=== PATIENT | female | born 1965 | race Caucasian/White ===

== ENCOUNTER 2020-04-18 11:55 | Outpatient (REF) | payer BC, SELFPAY ==
[2020-04-18 14:44] LABS: Free T4 (Free Thyroxine) 1.02 ng/dL (0.71-1.85); Thyroid Stimulating Hormone 1.48 uIU/mL (0.32-4.0); Vitamin D 25-OH Total 46.2 ng/mL (>30)
[2020-04-19 21:47] LABS: Thyroid Peroxidase Antibodies 83 IU/mL (<9)
== END 2020-04-18 11:56 | disposition home or self-care (01) ==
LOC: HO.HMGCLDS 11:55
PROVIDERS: PCP Internal Medicine; Visit Provider Internal Medicine
DX: N95.9 Unspecified menopausal and perimenopausal disorder (principal); E03.9 Hypothyroidism, unspecified; M25.50 Pain in unspecified joint; E06.3 Autoimmune thyroiditis; E04.1 Nontoxic single thyroid nodule; Z23 Encounter for immunization
CPT/HCPCS: 36415; 82306; 84439; 84443; 86376

== ENCOUNTER 2020-05-19 16:38 | Outpatient (REF) | payer BC, SELFPAY | END 2020-05-19 16:39 | disposition home or self-care (01) | LOC: HO.LAB 16:38 | PROVIDERS: Visit Provider Internal Medicine | DX: Z20.828 Contact with and (suspected) exposure to other viral communicable diseases (principal) | CPT/HCPCS: 36415; C9803; U0003 ==

== ENCOUNTER 2020-07-05 13:26 | Outpatient (REF) | payer BC, SELFPAY ==
--- NOTE | ~2020-07-05 | MM_ITS ---
EXAMINATION: BONE DENSITOMETRY CLINICAL INDICATION: Unspecified menopausal and perimenopausal disorder. COMPARISON: None (current study represents initial baseline exam). TECHNIQUE: Using a [employer] DXA System (software version: 13.1) manufactured by [employer], dual-energy x-ray absorptiometry was performed of the lumbar spine and left hip. The images are of good technical quality. Summary results are attached. FINDINGS: AP SPINE L1-L4: BMD 1.014 g/cm2, Z-score -0.3, T-score -1.4, osteopenia. LEFT FEMUR, NECK: BMD 0.891 g/cm2, Z-score 0.1, T-score -1.1, osteopenia. LEFT FEMUR, TOTAL: BMD 0.874 g/cm2, Z-score -0.2, T-score -1.1, osteopenia. IDENTIFIED RISK FACTORS: Height loss, low calcium intake, menopause. HISTORY OF FRACTURE: None listed. MEDICATIONS: Calcium supplements or multivitamin, vitamin D. MM/XR DEXA axial skeleton IMPRESSION: 1. DIAGNOSIS: Osteopenia based on the lowest T-score value of -1.4 in the lumbar spine applying World Health Organization criteria. 2. 10-YEAR FRACTURE RISK PREDICTION, FRAX: Major osteoporotic fracture (clinical spine, forearm, hip or shoulder) 4.9%. Hip fracture 0.3%. 3. Treatment Recommendations: NOF guidelines recommend consideration for treatment in postmenopausal women and men age 50 and older presenting with the following: -A hip or vertebral (clinical or morphometric) fracture. -T-score less than or equal to -2.5 at the femoral neck or spine after appropriate evaluation to exclude secondary causes. -Low bone mass at the hip or spine and a 10-year fracture probability by FRAX of greater than or equal to 3% for hip fracture or greater than or equal to 20% for major osteoporotic fracture based on the [place] adapted WHO algorithm. 4. Other Recommendations: All treatment decisions require clinical judgment and consideration of individual patient factors, including patient preferences, comorbidities, previous drug use, risk factors not captured in the FRAX model (e.g. frailty, falls, vitamin D deficiency, increased bone turnover, interval significant decline in bone density) and possible under or overestimation of fracture risk by FRAX. Additional medical evaluation for secondary cause of low bone mineral density may be appropriate. FUTURE SCAN RECOMMENDATION: People with diagnosed cases of osteoporosis or at high risk for fracture should have regular bone mineral density tests. For patients eligible for Medicare, routine testing is allowed once every 2 years. The testing frequency can be increased to one year for patients who have rapidly progressing disease, those who are receiving or discontinuing medical therapy to restore bone mass, or have additional risk factors.
--- NOTE | ~2020-07-05 | MM_ITS ---
EXAMINATION: MM SCREENING DIGITAL BREAST TOMOSYNTHESIS, BILATERAL CLINICAL INFORMATION: Screening. Asymptomatic. The lifetime risk of breast cancer based on the Tyrer-Cuzick Model is 7%. COMPARISON: Mammography: 03/24/2019, 03/17/2019, 02/26/2018 TECHNIQUE: Digital breast tomosynthesis is performed in both the craniocaudal and mediolateral oblique views along with computer-aided detection (CAD). Synthesized 2D images are generated from the tomosynthesis. FINDINGS: There are scattered areas of fibroglandular density (ACR BI-RADS breast composition Category b). There are no significant masses, abnormal calcifications, or other abnormalities. No developing density. Skin contours are smooth. MM/MM tomosynthesis screening BI IMPRESSION: No mammographic evidence of malignancy. ASSESSMENT: BI-RADS 1: Negative RECOMMENDATION: Routine annual mammography screening. This patient's information was entered into a reminder system with a target due date for their next mammogram.
== END 2020-07-05 13:27 | disposition home or self-care (01) ==
LOC: HO.MAMMO 13:26
PROVIDERS: PCP Internal Medicine; Visit Provider Internal Medicine
DX: Z12.31 Encounter for screening mammogram for malignant neoplasm of breast (principal); Z13.820 Encounter for screening for osteoporosis; Z78.0 Asymptomatic menopausal state; R29.890 Loss of height; E83.51 Hypocalcemia; M25.50 Pain in unspecified joint; E03.8 Other specified hypothyroidism; E04.1 Nontoxic single thyroid nodule; E06.3 Autoimmune thyroiditis
CPT/HCPCS: 77063; 77067; 77080

== ENCOUNTER 2020-07-16 10:00 | Outpatient (REF) | payer BC, SELFPAY ==
[2020-07-16 11:42] LABS: Alanine Aminotransferase 13 U/L (0-31); Aspartate Amino Transferase 18 U/L (5-31); Cholesterol 179 mg/dL; Glucose Fasting 84 mg/dL (60-99); HDL Cholesterol 63 mg/dL; LDL Cholesterol Calculated 104 mg/dl; Triglycerides 60 mg/dL
[2020-07-16 11:44] LABS: Free T4 (Free Thyroxine) 0.99 ng/dL (0.71-1.85); Thyroid Stimulating Hormone 1.51 uIU/mL (0.32-4.0); Vitamin D 25-OH Total 40.3 ng/mL (>30)
[2020-07-17 06:12] LABS: Triiodothyronine T3 Free 2.8 pg/mL (2.3-4.2)
[2020-07-18 07:09] LABS: Folate 14.6 ng/mL (> or = 4.0); Vitamin B12 424 pg/mL (200-900)
== END 2020-07-16 10:01 | disposition home or self-care (01) ==
LOC: HO.LAB 10:00
PROVIDERS: Visit Provider Internal Medicine
DX: Z00.01 Encounter for general adult medical examination with abnormal findings (principal); N95.9 Unspecified menopausal and perimenopausal disorder; E03.8 Other specified hypothyroidism; E06.3 Autoimmune thyroiditis
CPT/HCPCS: 36415; 80061; 82306; 82607; 82746; 82947; 84439; 84443; 84450; 84460; 84481

== ENCOUNTER 2020-07-28 07:18 | Outpatient (REF) | payer BC, SELFPAY ==
[2020-07-28 08:07] LABS: MANUAL DIFF FLAG NO
[2020-07-28 08:11] LABS: Basophils Absolute Auto 0.1 X10*3/uL (0.0-0.2); Basophils Percent Auto 1.2 % (0-2); Eosinophils Absolute Auto 0.1 X10*3/uL (0.0-0.4); Eosinophils Percent Auto 1.7 % (0-4); Hemoglobin 13.1 g/dl (12.0-16.0); Imm Gran Abs Auto 0.01 X10*3/uL (0.00-0.03); Imm Gran Pct Auto 0.2 % (0.0-0.4); Lymphocytes Absolute Auto 1.2 X10*3/uL (1.2-4.9); Lymphocytes Percent Auto 28.6 % (20-40); Mean Corpuscular HGB Conc 33.6 g/dl (31.0-35.0); Mean Corpuscular Hemoglobin 31.5 pg (27.0-33.0); Mean Corpuscular Volume 93.8 fL (80-98); Mean Platelet Volume 9.7 fL (9.4-12.3); Monocytes Absolute Auto 0.3 X10*3/uL (0.1-1.2); Monocytes Percent Auto 6.4 % (2-11); Neutrophils Absolute Auto 2.5 X10*3/uL (2.0-8.3); Neutrophils Percent Auto 61.9 % (45-73); Platelet Count 212 X10*3/uL (160-400); Red Blood Count 4.16 X10*6/uL (4.20-5.50); Red Cell Distribution Width 11.9 % (11.0-16.0); White Blood Count 4.1 X10*3/uL (4.8-10.8)
[2020-07-28 10:11] LABS: Vitamin B12 425 pg/mL (200-900)
[2020-07-29 05:12] LABS: DHEA Sulfate 131 mcg/dL (8-188)
[2020-07-29 05:32] LABS: Follicle Stimulating Hormone 114.6 mIU/mL; Lutenizing Hormone 44.8 mIU/mL
[2020-07-29 16:02] LABS: Adrenocorticotropic Hormone 39 pg/mL (6-50)
[2020-07-29 18:22] LABS: EBV-VCA IgM Ab <36.00 U/mL
[2020-07-31 16:56] LABS: Iodine, Serum/Plasma 55 mcg/L (52-109)
[2020-08-01 12:57] LABS: Methylmalonic Acid 167 nmol/L (87-318)
[2020-08-02 13:13] LABS: Testosterone, Free 2.8 pg/mL (0.1-6.4); Testosterone, Total 27 ng/dL (2-45)
[2020-08-02 22:21] LABS: Estradiol Ultra Sensitive 4 pg/mL
[2020-08-04 13:21] LABS: Progesterone 0.1 ng/mL
== END 2020-07-28 07:19 | disposition home or self-care (01) ==
LOC: HO.LAB 07:18
PROVIDERS: Absent Provider Family Medicine; PCP Internal Medicine; Visit Provider Family Medicine
DX: R53.83 Other fatigue (principal); N95.1 Menopausal and female climacteric states; E06.3 Autoimmune thyroiditis; J30.5 Allergic rhinitis due to food
CPT/HCPCS: 36415; 82024; 82330; 82533; 82607; 82627; 82670; 83001; 83002; 83789; 83921; 84144; 84402; 84403; 85025; 86003; 86664; 86665

== ENCOUNTER 2020-08-01 14:44 | Outpatient (REF) | payer BC, SELFPAY | END 2020-08-01 14:45 | disposition home or self-care (01) | LOC: HO.LAB 14:44 | PROVIDERS: Visit Provider Internal Medicine | DX: Z20.822 Contact with and (suspected) exposure to COVID-19 (principal) | CPT/HCPCS: 36415; C9803; U0003; U0005 ==

== ENCOUNTER 2020-08-29 06:52 | Outpatient (REF) | payer BC, SELFPAY ==
[2020-08-29 12:27] LABS: Free T4 (Free Thyroxine) 0.87 ng/dL (0.71-1.85); Thyroid Stimulating Hormone 3.28 uIU/mL (0.32-4.0)
[2020-08-30 06:07] LABS: Triiodothyronine T3 Free 3.5 pg/mL (2.3-4.2)
== END 2020-08-29 06:53 | disposition home or self-care (01) ==
LOC: HO.HMGCLDS 06:52
PROVIDERS: PCP Internal Medicine; Visit Provider Family Medicine
DX: E06.3 Autoimmune thyroiditis (principal)
CPT/HCPCS: 36415; 84439; 84443; 84481

== ENCOUNTER 2020-11-03 16:12 | Outpatient (REF) | payer BC, SELFPAY ==
[2020-11-03 17:28] LABS: Free T4 (Free Thyroxine) 0.82 ng/dL (0.71-1.85); Thyroid Stimulating Hormone 1.12 uIU/mL (0.32-4.0)
[2020-11-04 04:07] LABS: Triiodothyronine T3 Free 3.2 pg/mL (2.3-4.2)
[2020-11-04 08:56] LABS: Epstein Barr Virus Early Ag Ab <9.00 U/mL
== END 2020-11-03 16:13 | disposition home or self-care (01) ==
LOC: HO.LAB 16:12
PROVIDERS: PCP Internal Medicine; Visit Provider Family Medicine
DX: R53.83 Other fatigue (principal); E06.3 Autoimmune thyroiditis
CPT/HCPCS: 36415; 82533; 84439; 84443; 84481; 86663

== ENCOUNTER → 2021-01-12 13:07 | Outpatient (BNVA) | payer BC, SELFPAY | PROVIDERS: PCP Internal Medicine; Referring Provider Internal Medicine; Visit Provider Internal Medicine Cardiovascular Disease | DX: R00.1 Bradycardia, unspecified (principal) | CPT/HCPCS: 93005 ==

== ENCOUNTER 2021-01-31 12:05 | Outpatient (REF) | payer BC, SELFPAY ==
[2021-01-31 13:50] LABS: MANUAL DIFF FLAG NO
[2021-01-31 14:05] LABS: Basophils Percent Auto 0.8 % (0-2); Eosinophils Percent Auto 0.6 % (0-4); Hematocrit 43.1 % (37-47); Imm Gran Abs Auto 0.02 X10*3/uL (0.00-0.03); Imm Gran Pct Auto 0.4 % (0.0-0.4); Lymphocytes Absolute Auto 1.2 X10*3/uL (1.2-4.9); Lymphocytes Percent Auto 22.7 % (20-40); Mean Corpuscular HGB Conc 32.5 g/dl (31.0-35.0); Mean Corpuscular Hemoglobin 31.1 pg (27.0-33.0); Mean Corpuscular Volume 95.8 fL (80-98); Mean Platelet Volume 10.5 fL (9.4-12.3); Monocytes Absolute Auto 0.3 X10*3/uL (0.1-1.2); Monocytes Percent Auto 5.7 % (2-11); Neutrophils Absolute Auto 3.6 X10*3/uL (2.0-8.3); Neutrophils Percent Auto 69.8 % (45-73); Platelet Count 234 X10*3/uL (160-400); Red Cell Distribution Width 12.1 % (11.0-16.0); White Blood Count 5.1 X10*3/uL (4.8-10.8)
[2021-01-31 14:42] LABS: Free T4 (Free Thyroxine) 0.84 ng/dL (0.71-1.85)
[2021-02-02 09:37] LABS: Thyroglobulin Antibodies <1 IU/mL (< or = 1); Thyroid Peroxidase Antibodies 82 IU/mL (<9)
[2021-02-02 10:22] LABS: Triiodothyronine T3 Free 3.5 pg/mL (2.3-4.2)
[2021-02-04 15:32] LABS: Iodine, Serum/Plasma 44 mcg/L (52-109)
== END 2021-01-31 12:06 | disposition home or self-care (01) ==
LOC: HO.HMGCLDS 12:05
PROVIDERS: PCP Internal Medicine; Visit Provider Family Medicine
DX: R53.83 Other fatigue (principal); E06.3 Autoimmune thyroiditis
CPT/HCPCS: 36415; 83789; 84439; 84443; 84481; 85025; 86376; 86800

== ENCOUNTER 2021-03-06 14:54 | Outpatient (REF) | payer BC, SELFPAY ==
--- NOTE | ~2021-03-06 | MR_ITS ---
EXAMINATION: MR CERVICAL SPINE WITHOUT CONTRAST CLINICAL INFORMATION: 55-year-old with cervical disc degeneration. COMPARISON: None TECHNIQUE: MRI of the cervical spine was obtained using routine sequences without contrast. FINDINGS: ALIGNMENT: Slight lordotic reversal centered at C3-C4. Trace anterolisthesis at C3-C4 and trace retrolisthesis at C4-C5. CRANIOCERVICAL JUNCTION/C1-C2 ARTICULATIONS: Intact and aligned. VISUALIZED INTRACRANIAL STRUCTURES: Within normal limits. VERTEBRAL BODIES: Mild chronic loss of height of the C5 vertebral body. Remaining vertebral body heights are well maintained. DISC SPACES AND ENDPLATES: Mild disc space height loss at C3-C4 and severe disc space height loss at C4-C5 with [id number]-[id number] spondylosis at these levels respectively. Status post ACDF procedure at the C5-C6 level with susceptibility artifact on both sides of the intervertebral disc space consistent with previous surgery. Moderate to severe disc space height loss and mild spondylosis also noted at T1-T2. BONE MARROW: Ferromagnetic distortion at the C5-C6 level makes it difficult to evaluate bone marrow signal. There is minor type I and type II degenerative marrow signal change along the endplates at C4-C5. C2-C3: Tiny central disc protrusion. No significant DJD, canal or neural foraminal stenosis. C3-C4: Mild broad-based central disc protrusion, with trace anterolisthesis and mild flattening of the ventral dural sac without cord impingement. Bilateral uncovertebral spurring noted without significant canal or neural foraminal stenosis. C4-C5: Broad-based disc herniation with moderate flattening of the ventral dural sac without cord compression. There is associated ijlh-xy-usmmzhet central spinal canal stenosis with slight spinal cord deformity on the right with mild spinal cord volume loss suggesting a minimal degree of myelomalacia. Bilateral uncovertebral spurring is noted with minor facet hypertrophic changes. There is moderate right-sided and mild left-sided neural foraminal stenosis. C5-C6: Broad-based posterior osteophytic ridging is noted consistent with previous ACDF procedure, with ynoo-kl-wizuzoua flattening of the ventral dural sac without cord impingement. There is mild central spinal canal stenosis. There are bony productive changes of the uncovertebral joints bilaterally, with mild bilateral neural foraminal stenosis. C6-C7: Central disc herniation noted with flattening of the central dural sac without cord impingement. Possible small caudally migrated extruded disc fragment to the left of midline just below the level of the intervertebral disc space. Mild central canal narrowing noted. Bilateral uncovertebral spurring noted without significant neural foraminal stenosis. C7-T1: Small central disc protrusion noted with minimal indentation of the ventral thecal sac. No significant DJD, canal or neural foraminal stenosis. T1-T2: Broad-based posterior disc osteophyte complex noted with mild flattening of the dural sac without cord impingement. Ligamentum flavum thickening is noted without significant spinal canal stenosis. There is posterolateral disc osteophyte complex bilaterally with mild bilateral neural foraminal narrowing. The cervical and visualized upper thoracic spinal cord is remarkable for minimal T2 signal alteration on the right side of the C4-C5 level consistent with suspicion for myelomalacia. Otherwise the remainder of the spinal cord is normal in signal. MR/MR cervical spine wo con IMPRESSION: 1. Status post interbody fusion at the C5-C6 level with osteophytic ridging at this level, with mild canal and bilateral foraminal narrowing. 2. Multilevel discogenic degenerative changes, most apparent at C4-C5 with minor degrees of subluxation at C4-C5 and C3-C4. Jufk-ev-ekjsbrzf spinal canal stenosis at C4-C5 with moderate right-sided and mild left-sided neural foraminal stenosis. Multilevel central disc herniations as described above without cord impingement. Mild spinal canal stenosis at C5-C6 and C6-C7 also noted. 3. Suspect a mild degree of myelomalacia on the right at C4-C5.
== END 2021-03-06 14:55 | disposition home or self-care (01) ==
LOC: HO.MRI 14:54
PROVIDERS: Visit Provider Internal Medicine
DX: M50.30 Other cervical disc degeneration, unspecified cervical region (principal); M47.22 Other spondylosis with radiculopathy, cervical region; Z98.1 Arthrodesis status
CPT/HCPCS: 72141

== ENCOUNTER 2021-07-10 14:56 | Outpatient (REF) | payer BC, SELFPAY ==
--- NOTE | ~2021-07-10 | MM_ITS ---
EXAMINATION: MM SCREENING DIGITAL BREAST TOMOSYNTHESIS, BILATERAL CLINICAL INFORMATION: Screening. Asymptomatic. The lifetime risk of breast cancer based on the Tyrer-Cuzick Model is 7%. COMPARISON: Mammography: 07/05/2020, 03/24/2029, 03/17/2019, 02/26/2018 TECHNIQUE: Digital breast tomosynthesis is performed in both the craniocaudal and mediolateral oblique views along with computer-aided detection (CAD). Synthesized 2D images are generated from the tomosynthesis. FINDINGS: There are scattered areas of fibroglandular density (ACR BI-RADS breast composition Category b). There are no significant masses, abnormal calcifications, or other abnormalities. Parenchymal pattern is similar to prior studies. There is no developing density or architectural abnormality. The axilla and skin contours are unremarkable. No significant changes. MM/MM tomosynthesis screening BI IMPRESSION: No mammographic evidence of malignancy. ASSESSMENT: BI-RADS 1: Negative RECOMMENDATION: Routine annual mammography screening. This patient's information was entered into a reminder system with a target due date for their next mammogram.
== END 2021-07-10 14:57 | disposition home or self-care (01) ==
LOC: HO.MAMMO 14:56
PROVIDERS: Visit Provider Internal Medicine
DX: Z12.31 Encounter for screening mammogram for malignant neoplasm of breast (principal)
CPT/HCPCS: 77063; 77067

== ENCOUNTER 2021-08-07 15:59 | Outpatient (REF) | payer BC, SELFPAY ==
[2021-08-07 17:26] LABS: Free T4 (Free Thyroxine) 0.86 ng/dL (0.71-1.85); Thyroid Stimulating Hormone 1.42 uIU/mL (0.32-4.0)
[2021-08-08 15:51] LABS: Triiodothyronine T3 Free 3.1 pg/mL (2.3-4.2)
[2021-08-10 15:17] LABS: Iodine, Serum/Plasma 39 mcg/L (52-109)
== END 2021-08-07 16:00 | disposition home or self-care (01) ==
LOC: HO.LAB 15:59
PROVIDERS: PCP Internal Medicine; Visit Provider Family Medicine
DX: E06.3 Autoimmune thyroiditis (principal)
CPT/HCPCS: 36415; 83789; 84439; 84443; 84481

== ENCOUNTER 2021-10-10 13:34 | Outpatient (REF) | payer BC, SELFPAY ==
--- NOTE | ~2021-10-10 | XR_ITS ---
EXAMINATION: XR CHEST CLINICAL INFORMATION: Chest pain. COMPARISON: 01/29/2020 chest radiographs. TECHNIQUE: 2 views of the chest were obtained. FINDINGS: No significant abnormality is noted involving the heart, lungs, mediastinum, bony thorax or soft tissues. XR/XR chest 2V IMPRESSION: No acute cardiopulmonary process.
[2021-10-10 16:31] LABS: MANUAL DIFF FLAG NO
[2021-10-10 16:34] LABS: Basophils Percent Auto 0.5 % (0-2); Eosinophils Percent Auto 0.7 % (0-4); Hematocrit 41.7 % (37.0-47.0); Imm Gran Abs Auto 0.01 X10*3/uL (0.00-0.03); Imm Gran Pct Auto 0.2 % (0.0-0.4); Lymphocytes Absolute Auto 1.3 X10*3/uL (1.2-4.9); Lymphocytes Percent Auto 22.9 % (20-40); Mean Corpuscular HGB Conc 33.6 g/dl (31.0-35.0); Mean Corpuscular Hemoglobin 31.7 pg (27.0-33.0); Mean Corpuscular Volume 94.6 fL (80.0-98.0); Mean Platelet Volume 10.2 fL (9.4-12.3); Monocytes Absolute Auto 0.3 X10*3/uL (0.1-1.2); Monocytes Percent Auto 5.4 % (2-11); Neutrophils Absolute Auto 3.9 x10*3/uL (2.0-8.3); Neutrophils Percent Auto 70.3 % (45-73); Platelet Count 230 X10*3/uL (160-400); Red Blood Count 4.41 X10*6/uL (4.20-5.50); Red Cell Distribution Width 12.1 % (11.0-16.0); White Blood Count 5.5 X10*3/uL (4.8-10.8)
[2021-10-10 16:47] LABS: C Reactive Protein 0.06 mg/dL (< or = 0.50)
[2021-10-10 17:21] LABS: Erythrocyte Sedimentation Rate 6 MM/HR (0-20)
== END 2021-10-10 13:35 | disposition home or self-care (01) ==
LOC: HO.HMGCX 13:34
PROVIDERS: Visit Provider Internal Medicine
DX: R07.89 Other chest pain (principal); Z86.16 Personal history of COVID-19
CPT/HCPCS: 36415; 71046; 85025; 85652; 86140

== ENCOUNTER 2022-02-26 09:19 | Outpatient (REF) | payer BC, SELFPAY ==
[2022-02-26 12:25] LABS: Free T4 (Free Thyroxine) 0.92 ng/dL (0.71-1.85); Thyroid Stimulating Hormone 1.36 uIU/mL (0.32-4.0)
[2022-02-28 09:11] LABS: Triiodothyronine T3 Free 3.3 pg/mL (2.3-4.2); Triiodothyronine T3 Total 94 ng/dL (76-181)
[2022-02-28 09:33] LABS: Thyroglobulin Antibodies <1 IU/mL (< or = 1); Thyroid Peroxidase Antibodies 53 IU/mL (<9)
[2022-03-02 16:52] LABS: Iodine, Serum/Plasma 42 mcg/L (52-109)
== END 2022-02-26 09:20 | disposition home or self-care (01) ==
LOC: HO.HMGCLDS 09:19
PROVIDERS: PCP Internal Medicine; Visit Provider Physician Assistant
DX: E06.3 Autoimmune thyroiditis (principal)
CPT/HCPCS: 36415; 83789; 84439; 84443; 84480; 84481; 86376; 86800

== ENCOUNTER 2022-03-27 12:37 | Outpatient (REF) | payer BC, SELFPAY ==
[2022-03-27 14:22] LABS: C Reactive Protein 0.08 mg/dL (< or = 0.50); Rheumatoid Factor < 15.0 IU/mL (<15.0)
[2022-03-27 14:58] LABS: Erythrocyte Sedimentation Rate 5 MM/HR (0-20)
[2022-04-01 11:52] LABS: Anti Nuclear Antibody Pattern Nuclear, Homogeneous; Anti Nuclear Antibody Screen POSITIVE (NEGATIVE); Anti Nuclear Antibody Titer 1:40 titer
== END 2022-03-27 12:38 | disposition home or self-care (01) ==
LOC: HO.HMGCLDS 12:37
PROVIDERS: PCP Internal Medicine; Visit Provider Physician Assistant
DX: M25.59 Pain in other specified joint (principal)
CPT/HCPCS: 36415; 85652; 86038; 86039; 86140; 86431

== ENCOUNTER 2022-05-03 16:24 | Outpatient (REF) | payer BC, SELFPAY ==
--- NOTE | ~2022-05-03 | XR_ITS ---
EXAMINATION: XR ELBOW, LEFT CLINICAL INFORMATION: M25.522 - Pain in left elbow COMPARISON: None TECHNIQUE: AP, lateral, and oblique views of the left elbow. FINDINGS: No acute or healing fracture, dislocation, or capsular effusion. No joint narrowing or erosive change or chondrocalcinosis. There is volar side olecranon approximately 0.6 cm in length. XR/XR elbow LT min 3V IMPRESSION: 1. No joint narrowing or erosive change. No effusion. 2. Spur volar side olecranon adjacent to the distal posterior humerus, 0.6 cm in length.
--- NOTE | ~2022-05-03 | XR_ITS ---
EXAMINATION: XR HAND WRIST, LEFT CLINICAL INFORMATION: Right wrist pain COMPARISON: Radiographs left hand 04/13/2009 TECHNIQUE: The left hand and wrist are imaged together in 3 large ujazy-wv-izba images for a total of 3 views for the entire exam. FINDINGS: There is no acute or healing fracture, dislocation, destructive process. The ulnar variance is neutral. There are mild degenerative changes first carpometacarpal joint and mild narrowing triscaphe joint. There are no erosive changes. No chondrocalcinosis. The MCP and PIP joints are unremarkable. There are some borderline degenerative changes DIP joints. XR/XR hand wrist LT IMPRESSION: -Degenerative changes first CMC joint. Mild narrowing triscaphe joint. -Mild degenerative changes DIP joints. -No erosive changes.
== END 2022-05-03 16:25 | disposition home or self-care (01) ==
LOC: HO.HMGCX 16:24
PROVIDERS: PCP Internal Medicine; Visit Provider Internal Medicine
DX: M25.522 Pain in left elbow (principal); M25.532 Pain in left wrist; G89.29 Other chronic pain
CPT/HCPCS: 73080; 73110; 73130

== ENCOUNTER 2022-05-23 12:58 | Outpatient (REF) | payer BC, SELFPAY ==
[2022-05-23 15:17] LABS: Free T4 (Free Thyroxine) 0.88 ng/dL (0.71-1.85)
[2022-05-25 00:54] LABS: Triiodothyronine T3 Free 3.2 pg/mL (2.3-4.2); Triiodothyronine T3 Total 104 ng/dL (76-181)
[2022-05-25 01:49] LABS: Thyroglobulin Antibodies 1 IU/mL (< or = 1); Thyroid Peroxidase Antibodies 67 IU/mL (<9)
[2022-05-29 17:09] LABS: Iodine, Serum/Plasma 51 mcg/L (52-109)
== END 2022-05-23 12:59 | disposition home or self-care (01) ==
LOC: HO.HMGCLDS 12:58
PROVIDERS: PCP Internal Medicine; Visit Provider Physician Assistant
DX: E06.3 Autoimmune thyroiditis (principal)
CPT/HCPCS: 36415; 83789; 84432; 84439; 84443; 84480; 84481; 86376; 86800

== ENCOUNTER 2022-06-25 13:39 | Outpatient (REF) | payer BC, SELFPAY ==
--- NOTE | ~2022-06-25 | XR_ITS ---
EXAMINATION: XR THORACIC SPINE CLINICAL INFORMATION: Back pain COMPARISON: None TECHNIQUE: 3 views of the thoracic spine were obtained. FINDINGS: Bone alignment is normal. No fracture or dislocation. Mild degenerative spondylosis of the midthoracic spine. Paraspinal soft tissues are normal. Postsurgical changes seen at C5-C6 on the swimmer's view. Degenerative spondylosis and degenerative disc disease at C4-C5 and C6-C7. XR/XR thoracic spine 3V IMPRESSION: Mild degenerative changes.
== END 2022-06-25 13:40 | disposition home or self-care (01) ==
LOC: HO.HMGCX 13:39
PROVIDERS: PCP Internal Medicine; Visit Provider Internal Medicine
DX: M54.9 Dorsalgia, unspecified (principal)
CPT/HCPCS: 72072

== ENCOUNTER 2022-07-11 15:00 | Outpatient (REF) | payer BC, SELFPAY ==
--- NOTE | ~2022-07-11 | MM_ITS ---
EXAMINATION: MM SCREENING DIGITAL BREAST TOMOSYNTHESIS, BILATERAL CLINICAL INFORMATION: Screening. Asymptomatic. The lifetime risk of breast cancer based on the Tyrer-Cuzick Model is 7.7%. COMPARISON: Mammography: July 10, 2021 and studies dating back to October 10, 2016 TECHNIQUE: Digital breast tomosynthesis is performed in both the craniocaudal and mediolateral oblique views along with computer-aided detection (CAD). Synthesized 2D images are generated from the tomosynthesis. FINDINGS: The breasts are heterogeneously dense, which may obscure small masses (ACR BI-RADS breast composition Category c). There are no significant masses, abnormal calcifications, or other abnormalities. MM/MM tomosynthesis screening BI IMPRESSION: No significant changes from prior exam. ASSESSMENT: BI-RADS 1: Negative RECOMMENDATION: Routine annual mammography screening. This patient's information was entered into a reminder system with a target due date for their next mammogram.
== END 2022-07-11 15:01 | disposition home or self-care (01) ==
LOC: HO.MAMMO 15:00
PROVIDERS: PCP Internal Medicine; Visit Provider Internal Medicine
DX: Z12.31 Encounter for screening mammogram for malignant neoplasm of breast (principal)
CPT/HCPCS: 77063; 77067

== ENCOUNTER 2022-07-24 07:20 | Outpatient (REF) | payer BC, SELFPAY ==
--- NOTE | ~2022-07-24 | MR_ITS ---
EXAMINATION: MR THORACIC SPINE WITHOUT CONTRAST CLINICAL INFORMATION: Dorsalgia. COMPARISON: Plain films of the thoracic spine 06/25/2022. MRI scan of the cervical spine 03/06/2021. TECHNIQUE: MRI of the thoracic spine was obtained using routine sequences without contrast. FINDINGS: VERTEBRAL BODIES AND PARASPINAL STRUCTURES: There is anatomic alignment of the vertebral bodies. There is multilevel narrowing of intervertebral disc height in the midthoracic spine. The vertebral bodies have normal height and contour and no fractures are demonstrated. The study partially redemonstrates the ACDF device at C5-C6 on the localizer images. Overall, marrow signal is homogenous. The left lobe of the thyroid gland is not visualized. The paravertebral structures are unremarkable. There are atelectatic changes in the posterior lung davis. The visualized superior retroperitoneal structures are unremarkable. The conus is at the level of T12-L1. Accounting for artifact, spinal cord signal appears normal. SPINAL LEVELS: C6-C7: There is a shallow posterior disc protrusion, demonstrated on prior imaging. There is no overt spinal cord compression and the neural foramina appear patent. C7-T1: The facet joints appear normal bilaterally. Posterior disc contour is normal. There is no spinal cord compression or central stenosis. The neural foramina are patent bilaterally. T1-T2: There is a broad-based posterior disc protrusion which distorts the ventral thecal sac without spinal cord compression or central stenosis. There are osteophytic spurs narrowing the left greater than right neural foramina. T2-T3 through T12-L1: Posterior disc contours appear normal. Spinal cord compression or central stenosis. The neural foramina are patent. MR/MR thoracic spine wo con IMPRESSION: 1. There are no acute fractures or subluxations. 2. There are partially visualized sequelae of ACDF at C5-C6. 3. There is a posterior protrusion at T1-T2 without spinal cord compression, but there is narrowing of the neural foramina.
== END 2022-07-24 07:21 | disposition home or self-care (01) ==
LOC: HO.MRI 07:20
PROVIDERS: PCP Internal Medicine; Visit Provider Internal Medicine
DX: M54.9 Dorsalgia, unspecified (principal)
CPT/HCPCS: 72146

== ENCOUNTER 2023-02-28 15:49 | Outpatient (AMB) | payer BC, SELFPAY ==
--- NOTE | 2023-02-28 16:15 | A.OFFPC_ITS ---
Vital Signs 02/28/23 16:16 Height 5 ft 2 in Weight 118 lb BMI 21.6 BP 110/72 Blood Pressure Location Lt brachial Position Sitting Pulse 50 Pulse Source Pulse Oximeter Pulse Oximetry (%) 98 Oxygen Delivery Method Room Air Intake Visit Reasons: Hair Loss Intake Note: pt says she trouble sleeping for months and says she has been having hair loss since the end of Dec Allergies promethazine [From [facility]] Allergy (Intermediate, Verified 03/01/23 03:06) uncontrolled muscle twitches, hives Medication List - Last Reconciled 03/01/23 by Tiesha Dasilva MD ascorbate calcium (vitamin C) 1 g PO DAILY cholecalciferol (vitamin D3) 125 mcg PO DAILY diclofenac sodium 1% 2 grams topical QID PRN hydroxyzine HCl 10 mg PO BEDTIME PRN thyroid (pork) (DOPE SPRAYER Thyroid) 30 mg PO DAILY Tobacco use date assessed: 02/28/23 Dental Screening Dental Screen Date: 02/28/23 Did you have a dental visit in the last 12 months?: Yes Did you have a dental problem in the last 6 months where you did not have access to dental care?: No Was dental information given to patient?: Patient has dentist HPI Hair Loss HPI Details 57-year-old lady with hypothyroidism, he re today complaining of diffuse hair thinning, which has been present now for the last several months and seems to be getting worse. Has been having difficulty sleeping through the night, frequently wakes up around 01:00 to 02:00 and cannot go back to sleep anymore. States that there has been a lot of stress at work, looking for shelter by early next year. [facility] Medical History Insomnia Hair thinning Protrusion of intervertebral disc of thoracic region Bone spur of foot Mid back pain on right side Positive ELISSA (antinuclear antibody) Wrist pain, left Chronic pain of left elbow Chronic insomnia History of COVID-19 Posterior chest pain Cervical radiculopathy due to degenerative joint disease of spine DDD (degenerative disc disease), cervical Postmenopausal symptoms Arthralgia Vocal cord nodule History of nephrolithiasis Sinus bradycardia Arnett's neuroma Cervical radiculopathy due to degenerative joint disease of spine 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 Paternal Grandfather No problems noted. Paternal Grandmother No problems noted. Sister No problems noted. Sister No problems noted. Son No problems noted. Son No problems noted. Social History Household Members: Spouse Housing: House Alcohol intake: current Patient Tobacco Use Status: Former Tobacco user Tobacco use type: Cigarette Years Smoked: 20 yrs e-Cigarette/Vaping Use: Never Used Current occupational status: employed Cognitive needs: No Hearing needs: No Vision needs: No Questionnaire Thrive Questionnaire Date Thrive assessed: 06/25/22 TAURUS-7 AMB Questionnaire TAURUS-7 Date TAURUS - 7 assessed: 06/25/22 Source: Developed by Drs. Morris Cheung, Sintia Thomas, Rudi Klein and colleagues, with an educational bob from [employer]. Review of Systems Const Denies body aches, Reports daytime sleepiness, Reports fatigue, Denies fever(s), Reports lethargy and Denies weakness Eyes Denies change in vision ENT Reports no additional complaints Card Reports no additional complaints Resp Reports no additional complaints GI Reports no additional complaints Reports no additional complaints Musc Denies muscle cramps and Denies muscle weakness Skin/Breast Reports as per HPI Neuro Reports as per HPI, Denies focal weakness, Denies Sensory deficit (Neuro) and Denies weakness Psych Reports as per HPI Endo Reports fatigue Physical exam (Primary Care) Vital Signs: Last Vital Signs Pulse 50 02/28/23 16:16 BP 110/72 02/28/23 16:16 Pulse Ox 98 02/28/23 16:16 Oxygen Delivery Method Room Air 02/28/23 16:16 BMI result Body Mass Index 21.6 Tobacco/Smoking Status: Tobacco use Status Tobacco use date assessed 02/28/23 02/28/23 16:20 Patient Tobacco Use Status Former Tobacco user 02/28/23 16:20 Tobacco use type Cigarette 02/28/23 16:20 e-Cigarette/Vaping Use Never Used 02/28/23 16:20 Thrive Assessment: Date of Thrive Assessment Date Thrive assessed 06/25/22 02/28/23 16:20 Const General: healthy appearing, comfortable and no acute distress Orientation/consciousness: patient oriented x3 HENMT Head: Yes normocephalic, Yes atraumatic and No scalp lesion Neck Neck: Yes full ROM, Yes no lymphadenopathy and Yes supple Thyroid: Thyroid normal (Nonpalpable) Resp Auscultation: clear to auscultation bilaterally Cardio Rate: regular rate Rhythm: regular rhythm Heart sounds: S1 normal heart sound present and S2 normal heart sound present GI Inspection: Yes normal to inspection Palpation (GI): Soft to palpation, nontender and no guarding Skin Hair: general thinning Neuro General: patient oriented x3, gait normal, tone normal, moves all extremities, Normal light touch and pain sensation, no focal motor deficits and CN's II-XI intact bilaterally Sensory Exam: No Sensory deficit (Neuro) Extrem General: Yes normal to inspection, Yes full ROM, Yes no joint enlargement, Yes no clubbing, cyanosis or edema and Yes normal gait Psych Appearance: grossly normal and well kempt Mental Status: mental status grossly normal Affect: normal affect Attitude: cooperative Thought process: Normal thought process present Thought content: Normal thought content present Assessment and Plan Assessment & Plan (1) 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 Discussed possible side effects of medication which may include drowsiness. Orders: Orders Basic Metabolic Panel Fasting 02/28/23 E03.8 - Other specified hypothyroidism, E06.3 - Autoimmune thyroiditis, G47.00 - Insomnia, unspecified, L65.9 - Nonscarring hair loss, unspecified, N95.9 - Unspecified menopausal and perimenopausal disorder Hemoglobin and Hematocrit 02/28/23 E03.8 - Other specified hypothyroidism, E06.3 - Autoimmune thyroiditis, G47.00 - Insomnia, unspecified, L65.9 - Nonscarring hair loss, unspecified, N95.9 - Unspecified menopausal and perimenopausal disorder Thyroid Stimulating Hormone 02/28/23 E03.8 - Other specified hypothyroidism, E06.3 - Autoimmune thyroiditis, G47.00 - Insomnia, unspecified, L65.9 - Nonscarring hair loss, unspecified, N95.9 - Unspecified menopausal and perimenopausal disorder Thyroid Peroxidase Antibodies 02/28/23 E03.8 - Other specified hypothyroidism, E06.3 - Autoimmune thyroiditis, G47.00 - Insomnia, unspecified, L65.9 - Nonscarring hair loss, unspecified, N95.9 - Unspecified menopausal and perimenopausal disorder Vitamin D 25-OH Total 02/28/23 E03.8 - Other specified hypothyroidism, E06.3 - Autoimmune thyroiditis, G47.00 - Insomnia, unspecified, L65.9 - Nonscarring hair loss, unspecified, N95.9 - Unspecified menopausal and perimenopausal disorder Vitamin B12 and Folate 02/28/23 E03.8 - Other specified hypothyroidism, E06.3 - Autoimmune thyroiditis, G47.00 - Insomnia, unspecified, L65.9 - Nonscarring hair loss, unspecified, N95.9 - Unspecified menopausal and perimenopausal disorder Lipid Panel 02/28/23 E03.8 - Other specified hypothyroidism, E06.3 - Autoimmune thyroiditis, G47.00 - Insomnia, unspecified, L65.9 - Nonscarring hair loss, unspecified, N95.9 - Unspecified menopausal and perimenopausal disorder Free T4 (Free Thyroxine) 02/28/23 E03.8 - Other specified hypothyroidism, E03.9 - Hypothyroidism, unspecified, E06.3 - Autoimmune thyroiditis, G47.00 - Insomnia, unspecified, L65.9 - Nonscarring hair loss, unspecified, N95.9 - Unspecified menopausal and perimenopausal disorder Medications: New hydroxyzine HCl 10 mg PO BEDTIME PRN 30 tabs 0RF Insomnia, acute anxiety attack Coding Level of Care Code Est Pt Level 4 (82260) Diagnoses 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
[2023-02-28 16:16] VITALS: BP 110/72; PULSE 50; O2SAT 98; BMI 21.6
== END 2023-02-28 16:42 | disposition home or self-care (01) ==
PROVIDERS: PCP Internal Medicine; Visit Provider Internal Medicine
DX: E03.8 Other specified hypothyroidism (principal); E06.3 Autoimmune thyroiditis; N95.9 Unspecified menopausal and perimenopausal disorder; L65.9 Nonscarring hair loss, unspecified; G47.00 Insomnia, unspecified
CPT/HCPCS: 99214

== ENCOUNTER 2023-03-01 06:44 | Outpatient (REF) | payer BC, SELFPAY ==
[2023-03-01 11:47] LABS: Hematocrit 40.4 % (37.0-47.0); Hemoglobin 13.4 g/dl (12.0-16.0)
[2023-03-01 12:14] LABS: Anion Gap 11 (12-20); Blood Urea Nitrogen 16 mg/dL (9-16); Calcium 9.3 mg/dL (8.4-10.2); Carbon Dioxide 24 mmol/L (22-29); Chloride 108 mmol/L (96-108); Cholesterol 213 mg/dL (<200); Estimated Glomerular Filt Rate > 60; Free T4 (Free Thyroxine) 0.87 ng/dL (0.71-1.85); Glucose Fasting 96 mg/dL (60-99); HDL Cholesterol 75 mg/dL (>40); LDL Cholesterol Calculated 125 mg/dL (<100); Potassium 3.9 mmol/L (3.3-5.1); Sodium 139 mmol/L (135-145); Thyroid Stimulating Hormone 1.87 uIU/mL (0.32-4.0); Triglycerides 67 mg/dL (<150); Vitamin D 25-OH Total 99.6 ng/mL (>30)
[2023-03-01 12:25] LABS: Folate 7.9 ng/mL (> or = 4.0); Vitamin B12 440 pg/mL (200-900)
[2023-03-04 17:43] LABS: Thyroid Peroxidase Antibodies 59 IU/mL (<9)
== END 2023-03-01 06:45 | disposition home or self-care (01) ==
LOC: HO.HMGCLDS 06:44
PROVIDERS: PCP Internal Medicine; Visit Provider Internal Medicine
DX: L65.9 Nonscarring hair loss, unspecified (principal); E03.8 Other specified hypothyroidism; E06.3 Autoimmune thyroiditis; N95.9 Unspecified menopausal and perimenopausal disorder; G47.00 Insomnia, unspecified
CPT/HCPCS: 36415; 80048; 80061; 82306; 82607; 82746; 84439; 84443; 85014; 85018; 86376

== ENCOUNTER 2023-03-14 10:56 | Outpatient (AMB) | payer BC, SELFPAY ==
--- NOTE | 2023-03-14 11:09 | MHC.OFFVIS ---
Intake Vital Signs 03/14/23 11:10 Height 5 ft 2 in Weight 119 lb 0.794 oz BMI 21.8 BP 110/72 Blood Pressure Location Lt brachial Position Sitting Pulse 45 L Intake Visit Reasons: 2 years followup w/ekg dx: sinus bradycardia Intake Note: 2 year follow-up with ekg dx sinus bradycardia Systems Project Manager Required: No Allergies promethazine [From PHENERGAN] Allergy (Intermediate, Verified 03/01/23 03:06) uncontrolled muscle twitches, hives Medication List - Last Reconciled 03/14/23 by Andrew Francisco MD ascorbate calcium (vitamin C) 1 g PO DAILY cholecalciferol (vitamin D3) 125 mcg PO DAILY diclofenac sodium 1% 2 grams topical QID PRN hydroxyzine HCl 10 mg PO BEDTIME PRN thyroid (pork) (TERRITORY SALES CONSULTANT Thyroid) 30 mg PO DAILY HPI HPI Comments History of Present Illness Details Gini comes for follow-up. She continues to remain in excellent shape and works out regularly. She denies any exertional chest pain or shortness of breath. She denies any lightheadedness, syncope. No prolonged palpitation irregular heartbeat. 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 Paternal Grandfather No problems noted. Paternal Grandmother No problems noted. Sister No problems noted. Sister No problems noted. Son No problems noted. Son No problems noted. Social History Household Members: Spouse Housing: House Alcohol intake: current Patient Tobacco Use Status: Former Tobacco user Tobacco use type: Cigarette Years Smoked: 20 yrs e-Cigarette/Vaping Use: Never Used Current occupational status: employed Cognitive needs: No Hearing needs: No Vision needs: No Review of Systems Const Denies chills, Denies fatigue, Denies fever(s), Denies frequent falls, Denies weakness, Denies weight gain and Denies weight loss ENT Denies dizziness Card Denies chest pain, Denies leg edema, Denies lightheadedness, Denies palpitations, Denies dyspnea, Denies dyspnea on exertion, Denies orthopnea and Denies other (loss of consciousness) Resp Denies cough, Denies dyspnea and Denies dyspnea on exertion GI Denies hematochezia and Denies change in stool character Musc Denies abnormal gait, Denies muscle weakness, Denies numbness, Denies radiating pain into limb and Denies tingling Neuro Denies abnormal gait, Denies dizziness, Denies frequent falls, Denies numbness, Denies tingling and Denies weakness Endo Denies fatigue and Denies palpitations Physical Exam Vital Signs: Last Vital Signs Pulse 45 L 03/14/23 11:10 BP 110/72 03/14/23 11:10 BMI result Body Mass Index 21.8 Const General: cooperative, comfortable, no acute distress, alert, awake and Physically active Nutritional Appearance: thin Orientation/consciousness: patient oriented x3 Limitations: no limitations Neck Neck: Yes trachea midline, Yes supple and Yes no JVD Resp Effort & Inspection: normal respiratory effort Auscultation: clear to auscultation bilaterally Cardio Jugular venous distension: no JVD Palpation: normal PMI Rate: regular rate Rhythm: regular rhythm Heart sounds: S1 normal heart sound present, S2 normal heart sound present, no click, no gallops and no murmurs GI Auscultation: normal bowel sounds Skin General skin exam: no rashes or lesions noted Neuro General: patient oriented x3 and no focal motor deficits Extrem General: Yes no clubbing, cyanosis or edema Office Procedures EKG Details: EKG shows sinus bradycardia at 45 beats per minute otherwise normal EKG 37992-[id number], Complete Assessment & Plan Assessment & Plan (1) Sinus bradycardia: Code(s): R00.1 - Bradycardia, unspecified Plan: Asymmetric sinus bradycardia for long time in patient with good aerobic capacity. Most likely due to high vagal tone. Unlikely to be related to sinoatrial node dysfunction. No interventions required. Will continue monitor for symptoms and clinically. Follow-up in 2 years time. (2) Hyperlipidemia: Code(s): E78.5 - Hyperlipidemia, unspecified Plan: Mild hyperlipidemia with family history of coronary disease. Recommend coronary calcium score to evaluate for coronary atherosclerosis that may guide further treatment. This was discussed with the daughter. She will think about it. Follow up in the clinic in 2 years, sooner p.r.n.. Thank you for allowing me to partake in the care Orders: Orders CT Coronary Calcium Score 1 Week E78.5 - Hyperlipidemia, unspecified Coding Level of Care Code Est Pt Level 3 (23813) Diagnoses Sinus bradycardia R00.1 Hyperlipidemia E78.5 CPT Codes EKG - CPT: 97170-[id number], Complete ([id number])
[2023-03-14 11:10] VITALS: BP 110/72; PULSE 45; BMI 21.8
== END 2023-03-14 11:35 | disposition home or self-care (01) ==
PROVIDERS: PCP Internal Medicine; Visit Provider Internal Medicine Cardiovascular Disease
DX: R00.1 Bradycardia, unspecified (principal); E78.5 Hyperlipidemia, unspecified
CPT/HCPCS: 93010; 99213

== ENCOUNTER → 2023-03-14 10:56 | Outpatient (BNVA) | payer BC, SELFPAY | PROVIDERS: PCP Internal Medicine; Visit Provider Internal Medicine Cardiovascular Disease | DX: R00.1 Bradycardia, unspecified (principal); E78.5 Hyperlipidemia, unspecified | CPT/HCPCS: 93005 ==

== ENCOUNTER 2023-07-15 09:21 | Outpatient (AMB) | payer BC, SELFPAY ==
--- NOTE | 2023-07-15 09:23 | A.OFFPC_ITS ---
Vital Signs 07/15/23 09:24 Height 5 ft 2 in Weight 120 lb BMI 21.9 BP 92/60 Blood Pressure Location Rt brachial Position Sitting Pulse 50 Pulse Source Pulse Oximeter Pulse Oximetry (%) 97 Oxygen Delivery Method Room Air Intake Visit Reasons: Annual PE Intake Note: Pt is here today for PE. Allergies promethazine [From PHENERGAN] Allergy (Intermediate, Verified 07/15/23 09:56) uncontrolled muscle twitches, hives Medication List - Last Reconciled 07/15/23 by Tiesha Dasilva MD ascorbate calcium (vitamin C) 1 g PO DAILY cholecalciferol (vitamin D3) 125 mcg PO DAILY diclofenac sodium 1% 2 grams topical QID PRN hydroxyzine HCl 10 mg PO BEDTIME PRN thyroid (pork) (DIGITIZER OPERATOR Thyroid) 30 mg PO DAILY Tobacco use date assessed: 07/15/23 Dental Screening Dental Screen Date: 07/15/23 Did you have a dental visit in the last 12 months?: Yes Did you have a dental problem in the last 6 months where you did not have access to dental care?: No Was dental information given to patient?: Patient has dentist HPI Annual PE HPI Details 57-year-old lady here today for physical exam. She has 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, currently being sees followed at [facility] medicine clinic, and is now currently taking DIGITIZER OPERATOR Thyroid 30 mg taken once a day, which she states has been helping regulate her thyroid levels and has stopped her hair thinning. She is up-to-date with her cervical cancer screening, goes to [facility], and is scheduled for her screening mammogram later this afternoon. She had a negative screening colonoscopy [place] [address] Hu, due again this year patient states she will schedule her own appointment. She has mild hyperlipidemia with family history of coronary disease.Recently seen by Cardiology who did a Coronary calcium score to evaluate for coronary atherosclerosis that may guide further treatment. Her coronary calcium score is 9.34 in the LAD, with probability having coronary calcification at 28%. Patient has been advised to start statin by Cardiology but declined. She is very active, exercises regularly, and has been eating healthy diet. 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 Paternal Grandfather No problems noted. Paternal Grandmother No problems noted. Sister No problems noted. Sister No problems noted. Son No problems noted. Son No problems noted. Social History Household Members: Spouse Housing: House Alcohol intake: current Patient Tobacco Use Status: Former Tobacco user Tobacco use type: Cigarette Years Smoked: 20 yrs e-Cigarette/Vaping Use: Never Used Current occupational status: employed Cognitive needs: No Hearing needs: No Vision needs: Yes Questionnaire PHQ-9 Over the last 2 weeks, how often have you been bothered by any of the following problems? 1. Little interest or pleasure in doing things: not at all 2. Feeling down, depressed, or hopeless: not at all 3. Trouble falling or staying asleep, or sleeping too much: not at all 4. Feeling tired or having little energy: not at all 5. Poor appetite or overeating: not at all 6. Feeling bad about yourself - or that you are a failure or have let yourself or your family down: not at all 7. Trouble concentrating on things, such as reading the newspaper or watching television: not at all 8. Moving or speaking so slowly that other people could have noticed. Or the opposite - being so fidgety or restless that you have been moving around a lot more than usual: not at all 9. Thoughts that you would be better off or of hurting yourself in some way: not at all Total score: 0 Depression Screening Interpretation: Negative Depression Screening Done: Yes 69303 - PHQ-9 Billing: Yes Source: Developed by Drs. Morris Cheung, Sintia Thomas, Rudi Klein and colleagues, with an educational bob from [employer]. Thrive Questionnaire Date Thrive assessed: 07/15/23 I am a: Patient What is your living situation today?: I have a steady place to live Within the past 12 months, did the food you bought not last and you didn't have the money to get more?: Never true Within the past 12 months, did you worry whether your food would run out before you got money to buy more?: Never true Do you have trouble paying for medicines?: No Do you have trouble getting transportation to medical appointments?: No Do you have trouble paying your heating and electricity bill?: No Do you have trouble taking care of your child, family member or friend?: No Do you have trouble with day-to-day activities such as bathing, preparing meals, shopping, managing finances, etc.?: No Are you currently unemployed and looking for a job?: No Are you interested in more education?: No THRIVE Score: 0 AUDIT C Alcohol Use Questionnaire (AUDIT-C) 1. How often do you have a drink containing alcohol?: Monthly or less 2. How many drinks containing alcohol do you have on a typical day when you are drinking?: 1 or 2 3. How often do you have six or more drinks on one occasion?: Never Total Score: 1 TAURUS-7 AMB Questionnaire TAURUS-7 Date TAURUS - 7 assessed: 07/15/23 Feeling nervous, anxious, or on edge: 0 = Not at all Not being able to stop or control worryin = Not at all Worrying too much about different things: 0 = Not at all Trouble relaxin = Not at all Being so restless that it is hard to sit still: 0 = Not at all Becoming easily annoyed or irritable: 0 = Not at all Feeling afraid as if something awful might happen: 0 = Not at all Total TAURUS-7 score (0-4 normal; 5-9 mild; 10-14 moderate; 15-21 severe): 0 Source: Developed by Bonifacio Alvaradoet B.W. William, Rudi Klien and colleagues, with an educational bob from [employer] TAURUS-7 Assessment Billing TAURUS-7 Assessment Tool: TAURUS-7 Assessment 04610 Review of Systems Const Reports no additional complaints and Denies fatigue Eyes Details: Goes to [facility] ers, up-to-date with her eye exam Reports no additional complaints ENT Reports no additional complaints Card Reports no additional complaints Resp Reports no additional complaints GI Reports no additional complaints Reports no additional complaints Musc Reports as per HPI and Reports joint swelling (Left MCP joint) Skin/Breast Denies breast pain, Denies breast mass, Denies lesions and Denies rash Neuro Reports no additional complaints and Denies Sensory deficit (Neuro) Psych Reports no additional complaints Endo Details: Sees [facility] for treatment of her 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 currently on DIGITIZER OPERATOR thyroid Reports no additional complaints and Denies fatigue Leander/Lymph Reports no additional complaints Aller/Immun Reports no additional complaints Physical exam (Primary Care) Vital Signs: Last Vital Signs Pulse 50 07/15/23 09:24 BP 92/60 07/15/23 09:24 Pulse Ox 97 07/15/23 09:24 Oxygen Delivery Method Room Air 07/15/23 09:24 BMI result Body Mass Index 21.9 Tobacco/Smoking Status: Tobacco use Status Tobacco use date assessed 07/15/23 07/15/23 09:28 Patient Tobacco Use Status Former Tobacco user 07/15/23 09:28 Tobacco use type Cigarette 07/15/23 09:28 e-Cigarette/Vaping Use Never Used 07/15/23 09:28 PHQ-9: PHQ-9 Score PHQ-9: Total score 0 07/15/23 23:38 Depression Screening Interpretation: Negative Thrive Assessment: Date of Thrive Assessment Date Thrive assessed 07/15/23 07/15/23 10:43 Const General: healthy appearing, comfortable and no acute distress Orientation/consciousness: patient oriented x3 HENMT Head: Yes normocephalic, Yes atraumatic and No scalp lesion Neck Neck: Yes full ROM, Yes no lymphadenopathy and Yes supple Thyroid: Thyroid normal (Nonpalpable) Resp Auscultation: clear to auscultation bilaterally Cardio Rate: regular rate Rhythm: regular rhythm Heart sounds: S1 normal heart sound present and S2 normal heart sound present GI Inspection: Yes normal to inspection Palpation (GI): Soft to palpation, nontender and no guarding General: Yes no CVA tenderness and Yes deferred (Up-to-date with her cervical cancer screening and pelvic exam goes to [facility]) Back/Spine/Pelvis Back: no CVA tenderness and No back tenderness Skin General skin exam: no rashes or lesions noted Neuro General: patient oriented x3, gait normal, tone normal, moves all extremities, Normal light touch and pain sensation, no focal motor deficits and CN's II-XI intact bilaterally Sensory Exam: No Sensory deficit (Neuro) Extrem General: Yes normal to inspection, Yes full ROM, Yes no joint enlargement, Yes no clubbing, cyanosis or edema and Yes normal gait Psych Appearance: grossly normal and well kempt Mental Status: mental status grossly normal Affect: normal affect Attitude: cooperative Thought process: Normal thought process present Thought content: Normal thought content present Assessment and Plan Assessment & Plan (1) Annual visit for general adult medical examination with abnormal findings: Code(s): Z00.01 - Encounter for general adult medical examination with abnormal findings Plan: Will check appropriate labs. Continue with regular dental visit every 6 months and regular eye exams, at least every 2 years. Take adequate calcium in diet and vitamin-D 3 at 2000 IU per cap once a day, in addition to weight-bearing exercises to help maintain good muscle tone and weight control. She is scheduled for however screening mammogram later this afternoon, up-to-date with her cervical cancer screening, and is due now for her repeat colonoscopy screening, patient states that she will just contact her GI provider once ready. 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: Code(s): E03.8 - Other specified hypothyroidism; E06.3 - Autoimmune thyroiditis Plan: Currently on and be thyroid, followed at [facility] (4) Wrist pain, left: Code(s): M25.532 - Pain in left wrist Plan: Uses diclofenac gel as needed Orders: Orders Alanine Aminotransferase 12/09/23 N95.9 - Unspecified menopausal and perimenopausal disorder, Z00.01 - Encounter for general adult medical examination with abnormal findings Vitamin D 25-OH Total 12/09/23 N95.9 - Unspecified menopausal and perimenopausal disorder, Z00.01 - Encounter for general adult medical examination with abnormal findings Lipid Panel 12/09/23 N95.9 - Unspecified menopausal and perimenopausal disorder, Z00.01 - Encounter for general adult medical examination with abnormal findings Glucose Fasting 12/09/23 N95.9 - Unspecified menopausal and perimenopausal disorder, Z00.01 - Encounter for general adult medical examination with abnormal findings Aspartate Amino Transferase 12/09/23 N95.9 - Unspecified menopausal and perimenopausal disorder, Z00.01 - Encounter for general adult medical examination with abnormal findings Coding Level of Care Code Est Pt Prev Care 40-64y(34195) Diagnoses Annual visit for general adult medical examination with abnormal findings Z00.01 Elevated coronary artery calcium score R93.1 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
[2023-07-15 09:24] VITALS: BP 92/60; PULSE 50; O2SAT 97; BMI 21.9
== END 2023-07-15 10:33 | disposition home or self-care (01) ==
PROVIDERS: PCP Internal Medicine; Visit Provider Internal Medicine
DX: Z00.00 Encounter for general adult medical examination without abnormal findings (principal); R93.1 Abnormal findings on diagnostic imaging of heart and coronary circulation; E03.8 Other specified hypothyroidism; E06.3 Autoimmune thyroiditis; M25.532 Pain in left wrist
CPT/HCPCS: 99396

== ENCOUNTER 2023-07-15 10:55 | Outpatient (REF) | payer BC, SELFPAY | END 2023-07-15 10:56 | disposition home or self-care (01) | LOC: HO.MAMMO 10:55 | PROVIDERS: PCP Internal Medicine; Visit Provider Internal Medicine | DX: Z12.31 Encounter for screening mammogram for malignant neoplasm of breast (principal) | CPT/HCPCS: 77063; 77067 ==

== ENCOUNTER → 2023-07-15 11:15 | Outpatient (BNV) | payer BC, SELFPAY | PROVIDERS: PCP Internal Medicine; Visit Provider Radiology Diagnostic Radiology | DX: Z12.31 Encounter for screening mammogram for malignant neoplasm of breast (principal) | CPT/HCPCS: 77063; 77067 ==

== ENCOUNTER 2023-07-19 13:00 | Outpatient (RCR) | payer BC, SELFPAY | END 2023-07-19 14:30 | disposition home or self-care (01) | LOC: HO.OT 13:00 | PROVIDERS: PCP Internal Medicine; Visit Provider Physical Medicine & Rehabilitation | DX: M79.642 Pain in left hand (principal) | CPT/HCPCS: 29130; 97110; 97166; 97760 ==

== ENCOUNTER 2023-07-31 09:36 | Outpatient (REF) | payer BC, SELFPAY ==
[2023-07-31 12:58] LABS: Free T4 (Free Thyroxine) 0.83 ng/dL (0.71-1.85); Thyroid Stimulating Hormone 2.35 uIU/mL (0.32-4.0)
[2023-08-02 08:59] LABS: Triiodothyronine T3 Free 3.1 pg/mL (2.3-4.2); Triiodothyronine T3 Total 95 ng/dL (76-181)
== END 2023-07-31 09:37 | disposition home or self-care (01) ==
LOC: HO.HMGCLDS 09:36
PROVIDERS: PCP Internal Medicine; Visit Provider Physician Assistant
DX: E06.3 Autoimmune thyroiditis (principal)
CPT/HCPCS: 36415; 84439; 84443; 84480; 84481

== ENCOUNTER 2023-11-25 08:49 | Outpatient (REF) | payer BC, SELFPAY ==
[2023-11-25 13:11] LABS: MANUAL DIFF FLAG NO
[2023-11-25 13:25] LABS: Basophils Absolute Auto 0.1 X10*3/uL (0.0-0.2); Basophils Percent Auto 1.4 % (0-2); Eosinophils Absolute Auto 0.1 X10*3/uL (0.0-0.4); Eosinophils Percent Auto 2.7 % (0-4); Hematocrit 39.9 % (37.0-47.0); Hemoglobin 13.2 g/dl (12.0-16.0); Lymphocytes Absolute Auto 1.4 X10*3/uL (1.2-4.9); Lymphocytes Percent Auto 30.9 % (20-40); Mean Corpuscular HGB Conc 33.1 g/dl (31.0-35.0); Mean Corpuscular Hemoglobin 31.3 pg (27.0-33.0); Mean Corpuscular Volume 94.5 fL (80.0-98.0); Mean Platelet Volume 9.9 fL (9.4-12.3); Monocytes Absolute Auto 0.3 X10*3/uL (0.1-1.2); Monocytes Percent Auto 7.7 % (2-11); Neutrophils Absolute Auto 2.5 x10*3/uL (2.0-8.3); Neutrophils Percent Auto 57.3 % (45-73); Platelet Count 203 X10*3/uL (160-400); Red Blood Count 4.22 X10*6/uL (4.20-5.50); Red Cell Distribution Width 12.4 % (11.0-16.0); White Blood Count 4.4 X10*3/uL (4.8-10.8)
[2023-11-25 13:46] LABS: Alanine Aminotransferase 13 U/L (0-31); Anion Gap 11 (12-20); Aspartate Amino Transferase 20 U/L (5-31); Blood Urea Nitrogen 15 mg/dL (9-16); Calcium 8.8 mg/dL (8.4-10.2); Carbon Dioxide 28 mmol/L (22-29); Chloride 107 mmol/L (96-108); Cholesterol 205 mg/dL (<200); Estimated Glomerular Filt Rate > 60; Glucose Fasting 95 mg/dL (60-99); HDL Cholesterol 70 mg/dL (>40); LDL Cholesterol Calculated 123 mg/dL (<100); Potassium 3.9 mmol/L (3.3-5.1); Sodium 142 mmol/L (135-145); Triglycerides 64 mg/dL (<150)
[2023-11-25 14:06] LABS: Vitamin D 25-OH Total 84.1 ng/mL (>30)
== END 2023-11-25 08:50 | disposition home or self-care (01) ==
LOC: HO.HMGCLDS 08:49
PROVIDERS: PCP Internal Medicine; Visit Provider Internal Medicine
DX: Z00.01 Encounter for general adult medical examination with abnormal findings (principal); N95.9 Unspecified menopausal and perimenopausal disorder; R00.1 Bradycardia, unspecified; Z01.818 Encounter for other preprocedural examination
CPT/HCPCS: 36415; 80048; 80061; 82306; 84450; 84460; 85025

== ENCOUNTER 2023-11-26 11:29 | Outpatient (AMB) | payer BC, SELFPAY ==
[2023-11-26 11:46] VITALS: BP 110/70; PULSE 47; O2SAT 98; BMI 21.0
--- NOTE | 2023-11-26 11:46 | A.OFFPC_ITS ---
Vital Signs 11/26/23 11:46 Height 5 ft 2 in Weight 115 lb BMI 21.0 BP 110/70 Blood Pressure Location Lt brachial Position Sitting Pulse 47 L Pulse Source Pulse Oximeter Pulse Oximetry (%) 98 Oxygen Delivery Method Room Air Intake Visit Reasons: Pre Op/Implant metatarsal joint on 12/11/2023 Intake Note: Pt is here today for her pre-op with Dr. Dobson surgery date 12/10 for Hallux limitus left foot Allergies promethazine [From [facility]] Allergy (Intermediate, Verified 11/26/23 12:17) uncontrolled muscle twitches, hives Medication List - Last Reconciled 11/26/23 by Tiesha Dasilva MD ascorbate calcium (vitamin C) 1 g PO DAILY cholecalciferol (vitamin D3) 125 mcg PO DAILY diclofenac sodium 1% 2 grams topical QID PRN thyroid (pork) (CLINICAL ADMISSIONS MANAGER Thyroid) 30 mg PO DAILY Tobacco use date assessed: 11/26/23 Dental Screening Dental Screen Date: 07/15/23 HPI Pre Op/Implant metatarsal joint on 12/11/2023 HPI Details 58-year-old lady with hallux deformity i n left foot, here today for preoperative exam for outpatient surgery for treatment of hallux limitus deformity in left foot scheduled for , requested by Dr. Dobson. . 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 She has been seen and evaluated by Cardiology for asymptomatic bradycardia present for a long time inpatient with good aerobic capacity, this was felt to be most likely due to high vagal tone , unlikely to be related to sinoatrial node dysfunction. No interventions required. Will continue monitor for symptoms and clinically. [facility] Medical History (Updated 07/15/23 @ 10:35 by Tiesha Dasilva MD) Elevated coronary artery calcium score Bone spur of foot Positive ELISSA (antinuclear antibody) Wrist pain, left History of COVID-19 DDD (degenerative disc disease), cervical Postmenopausal symptoms Arthralgia Vocal cord nodule History of nephrolithiasis Sinus bradycardia Arnett's neuroma Cervical radiculopathy due to degenerative joint disease of spine Hypothyroidism due to Sonia's thyroiditis Thyroid nodule Surgical History (Updated 07/15/23 @ 10:35 by Tiesha Dasilva MD) History of fusion of cervical spine S/P herniorrhaphy History of partial thyroidectomy History of tonsillectomy History of inguinal hernia repair Family History Father COPD (chronic obstructive pulmonary disease) Mother Diabetes mellitus HTN (hypertension) History of CVA (cerebrovascular accident) Cardiomyopathy Maternal Grandmother Lung cancer Maternal Grandfather No problems noted. Paternal Grandfather No problems noted. Paternal Grandmother No problems noted. Sister No problems noted. Sister No problems noted. Son No problems noted. Son No problems noted. Social History Household Members: Spouse Housing: House Alcohol intake: current Patient Tobacco Use Status: Former Tobacco user Tobacco use type: Cigarette Years Smoked: 20 yrs e-Cigarette/Vaping Use: Never Used Current occupational status: employed Cognitive needs: No Hearing needs: No Vision needs: Yes Questionnaire PHQ-9 Over the last 2 weeks, how often have you been bothered by any of the following problems? 1. Little interest or pleasure in doing things: not at all 2. Feeling down, depressed, or hopeless: not at all 3. Trouble falling or staying asleep, or sleeping too much: not at all 4. Feeling tired or having little energy: not at all 5. Poor appetite or overeating: not at all 6. Feeling bad about yourself - or that you are a failure or have let yourself or your family down: not at all 7. Trouble concentrating on things, such as reading the newspaper or watching television: not at all 8. Moving or speaking so slowly that other people could have noticed. Or the opposite - being so fidgety or restless that you have been moving around a lot more than usual: not at all 9. Thoughts that you would be better off or of hurting yourself in some way: not at all Total score: 0 Depression Screening Interpretation: Negative Depression Screening Done: Yes Source: Developed by Drs. Morris Cheung, Sintia Thomas, Rudi Klein and colleagues, with an educational bob from [employer]. Thrive Questionnaire Date Thrive assessed: 07/15/23 I am a: Patient What is your living situation today?: I have a steady place to live Within the past 12 months, did the food you bought not last and you didn't have the money to get more?: Never true Within the past 12 months, did you worry whether your food would run out before you got money to buy more?: Never true Do you have trouble paying for medicines?: No Do you have trouble getting transportation to medical appointments?: No Do you have trouble paying your heating and electricity bill?: No Do you have trouble taking care of your child, family member or friend?: No Do you have trouble with day-to-day activities such as bathing, preparing meals, shopping, managing finances, etc.?: No Are you currently unemployed and looking for a job?: No Are you interested in more education?: No Please select the resources that you would like help with: Housing/Half-Way Currently or been in a relationship where the following occur: No concerns reported THRIVE Score: 0 AUDIT C Alcohol Use Questionnaire (AUDIT-C) 1. How often do you have a drink containing alcohol?: 2-4 times a month 2. How many drinks containing alcohol do you have on a typical day when you are drinking?: 1 or 2 3. How often do you have six or more drinks on one occasion?: Never Total Score: 2 TAURUS-7 AMB Questionnaire TAURUS-7 Date TAURUS - 7 assessed: 07/15/23 Feeling nervous, anxious, or on edge: 0 = Not at all Not being able to stop or control worryin = Not at all Worrying too much about different things: 0 = Not at all Trouble relaxin = Not at all Being so restless that it is hard to sit still: 0 = Not at all Becoming easily annoyed or irritable: 0 = Not at all Feeling afraid as if something awful might happen: 0 = Not at all Total TAURUS-7 score (0-4 normal; 5-9 mild; 10-14 moderate; 15-21 severe): 0 Source: Developed by Drs. Morris Cheung, Sintia Thomas, Rudi Klein and colleagues, with an educational bob from [employer]. Review of Systems Const Reports no additional complaints and Denies fatigue Eyes Details: Goes to [facility], up-to-date with her eye exam Reports no additional complaints ENT Reports no additional complaints Card Reports no additional complaints Resp Reports no additional complaints GI Reports no additional complaints Reports no additional complaints Musc Reports as per HPI and Reports joint swelling (Left MCP joint) Skin/Breast Denies breast pain, Denies breast mass, Denies lesions and Denies rash Neuro Reports no additional complaints and Denies Sensory deficit (Neuro) Psych Reports no additional complaints Endo Details: Sees [facility] for treatment of her 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 currently on CLINICAL ADMISSIONS MANAGER thyroid Reports no additional complaints and Denies fatigue Leander/Lymph Reports no additional complaints Aller/Immun Reports no additional complaints Physical exam (Primary Care) Vital Signs: Last Vital Signs Pulse 47 L 11/26/23 11:46 BP 110/70 11/26/23 11:46 Pulse Ox 98 11/26/23 11:46 Oxygen Delivery Method Room Air 11/26/23 11:46 BMI result Body Mass Index 21.0 Tobacco/Smoking Status: Tobacco use Status Tobacco use date assessed 11/26/23 11/26/23 11:50 Patient Tobacco Use Status Former Tobacco user 11/26/23 11:50 Tobacco use type Cigarette 11/26/23 11:50 e-Cigarette/Vaping Use Never Used 11/26/23 11:50 PHQ-9: PHQ-9 Score PHQ-9: Total score 0 11/26/23 12:39 Depression Screening Interpretation: Negative Thrive Assessment: Date of Thrive Assessment Date Thrive assessed 07/15/23 11/26/23 11:50 Currently or been in a relationship where the following occur: No concerns reported Const General: healthy appearing, comfortable and no acute distress Orientation/consciousness: patient oriented x3 HENMT Head: Yes normocephalic, Yes atraumatic and No scalp lesion Eyes General: appearance normal, both eyes and all related structures Neck Neck: Yes full ROM, Yes no lymphadenopathy and Yes supple Thyroid: Thyroid normal (Nonpalpable) Resp Auscultation: clear to auscultation bilaterally Cardio Rate: bradycardic Rhythm: regular rhythm Heart sounds: no murmurs GI Inspection: Yes normal to inspection Palpation (GI): Soft to palpation, nontender and no guarding General: Yes no CVA tenderness and Yes deferred (Up-to-date with her cervical cancer screening and pelvic exam goes to [facility]) Back/Spine/Pelvis Back: no CVA tenderness and No back tenderness Skin General skin exam: no rashes or lesions noted Neuro General: patient oriented x3, gait normal, tone normal, moves all extremities, Normal light touch and pain sensation, no focal motor deficits and CN's II-XI intact bilaterally Sensory Exam: No Sensory deficit (Neuro) Extrem General: Yes normal to inspection, Yes full ROM, Yes no joint enlargement, Yes no clubbing, cyanosis or edema and Yes normal gait Psych Appearance: grossly normal and well kempt Mental Status: mental status grossly normal Affect: normal affect Attitude: cooperative Thought process: Normal thought process present Thought content: Normal thought content present Results Reviewed Results Reviewed: babs: Gini Rao Age/Sex: 58/F : 1965 Unit#: [id number] Attend Dr: Tiesha Dasilva MD Re11/25/23 Status: DEP REF Location: [facility] Disch: SPEC : [id number] CARIN: 11/25/23 STATUS: COMP REQ : [id number] RECD: 11/25/23-[address]: Tiesha Dasilva MD COMP: 11/25/23 ENTERED: 11/25/[address] [facility] [address]: ORDERED: CBC Auto Diff Test Result Flag Reference WBC 4.4 L 4.8-10.8 X10*3/uL RBC 4.22 4.20-5.50 X10*6/uL HGB 13.2 12.0-16.0 g/dl HCT 39.9 37.0-47.0 % MCV 94.5 80.0-98.0 fL MCH 31.3 27.0-33.0 pg MCHC 33.1 31.0-35.0 g/dl RDW 12.4 11.0-16.0 % PLT 203 160-400 X10*3/uL MPV 9.9 9.4-12.3 fL Neut Pct Auto 57.3 45-73 % ImGran Pct Auto 0.0 0.0-0.4 % Lymp Pct Auto 30.9 20-40 % [place] Pct Auto 7.7 2-11 % Eos Pct Auto 2.7 0-4 % Baso Pct Auto 1.4 0-2 % NRBC Pct Auto 0.0 0.0-0.2 /100WBC ANC Neut Abs # 2.5 2.0-8.3 x10*3/uL ImGran Abs Auto 0.00 0.00-0.03 X10*3/uL Lymph Abs Auto 1.4 1.2-4.9 X10*3/uL [place] Abs Auto 0.3 0.1-1.2 X10*3/uL Eos Abs Auto 0.1 0.0-0.4 X10*3/uL Baso Abs Auto 0.1 0.0-0.2 X10*3/uL NRBC Abs Auto 0.000 0.0-0.012 X10*3/uL Name: Gini Rao Age/Sex: 58/F : 1965 Unit#: [id number] Attend Dr: Tiesha Dasilva MD Re11/25/23 Status: DEP REF Location: [facility] Disch: SPEC : [id number] CARIN: 11/25/23 STATUS: COMP REQ : [id number] RECD: 11/25/23-[address]: Tiesha Dasilva MD COMP: 11/25/23 ENTERED: 11/25/[address]: ORDERED: Met Prof Fast, AST, ALT, Lipid Panel, Vitamin D 25-OH Test Result Flag Reference Sodium 142 135-145 mmol/L Potassium 3.9 3.3-5.1 mmol/L CL 107 96-108 mmol/L CO2 28 22-29 mmol/L Gap 11 L 12-20 BUN 15 9-16 mg/dL Creat 0.94 0.5-1.4 mg/dL EGFR > 60 NOTE: For -[place] individuals, multiply the result by 1.210. Chronic Kidney Disease: Estimated GFR < 60 mL/min/1.73m2 Severe Kidney Disease: Estimated GFR < 15 mL/min/1.73m2 FBS 95 60-99 mg/dL CA 8.8 8.4-10.2 mg/dL AST (GOT) 20 5-31 U/L ALT (GPT) 13 0-31 U/L Triglyceride 64 <150 mg/dL Desirable Triglyceride: less than 150 mg/dL Borderline High Triglyceride 150-199 mg/dL High Triglyceride: 200-499 mg/dL Very High Triglyceride: greater than or equal to 5OO mg/dL Cholesterol 205 H <200 mg/dL Desirable Cholesterol: less than 200 mg/dL Borderline High Cholesterol: 200-239 mg/dL High Cholesterol: greater than 239 mg/dL LDL Calculated 123 H <100 mg/dL Desirable LDL: less than 100 mg/dL Near Optimal/Above Optimal LDL: 110-129 mg/dL Borderline High LDL: 130-159 mg/dL High LDL: 160-189 mg/dL Very High LDL: greater than or equal to 190 mg/dL HDL 70 >40 mg/dL Desirable HDL: greater than 40 mg/dL Note: This HDL assay may give artificially low results in patients with liver disease. Vit D 25-OH Tot 84.1 >30 ng/mL Health Based Reference Values* < 20 ng/mL Deficient 20-30 ng/mL Insufficient > 30 ng/mL Sufficient Assessment and Plan Assessment & Plan (1) Preoperative examination: Code(s): Z01.818 - Encounter for other preprocedural examination Plan: Pt is a 58 year old lady, here for pre-op clearance for surgery for treatment of Hallux limitus on left foot, requested by Dr. Dobson. Patient with no history hist cardiac or respiratory illness. She has sinus bradycardia which is currently asymptomatic seen and evaluated,of Cardiology and felt to be most likely due to high vagal tone , with no interventions preoperative exam is unremarkable. She has a low cardiac risk index and is medically cleared for surgery in an ambulatory setting. (2) Sinus bradycardia: Code(s): R00.1 - Bradycardia, unspecified Plan: She has been seen and evaluated by Cardiology for asymptomatic bradycardia present for a long time inpatient with good aerobic capacity, this was felt to be most likely due to high vagal tone , unlikely to be related to sinoatrial node dysfunction. No interventions required. Will continue monitor for symptoms and clinically. (3) Hypothyroidism due to Sonia's thyroiditis: Code(s): E03.8 - Other specified hypothyroidism; E06.3 - Autoimmune thyroiditis Plan: Thyroid levels are within normal limits, currently on CLINICAL ADMISSIONS MANAGER thyroid 30 mg daily Orders: Orders XR DEXA axial skeleton 11/26/23 Z78.0 - Asymptomatic menopausal state Coding Level of Care Code Est Pt Level 4 (69370) Diagnoses Preoperative examination Z01.818 Sinus bradycardia R00.1 Hypothyroidism due to Sonia's thyroiditis E03.8; E06.3
== END 2023-11-26 13:05 | disposition home or self-care (01) ==
PROVIDERS: PCP Internal Medicine; Visit Provider Internal Medicine
DX: Z01.818 Encounter for other preprocedural examination (principal); R00.1 Bradycardia, unspecified; E03.8 Other specified hypothyroidism; E06.3 Autoimmune thyroiditis
CPT/HCPCS: 99214

== ENCOUNTER 2024-02-11 09:10 | Outpatient (REF) | payer BC, SELFPAY ==
[2024-02-11 10:52] LABS: Free T4 (Free Thyroxine) 0.89 ng/dL (0.71-1.85); Thyroid Stimulating Hormone 2.51 uIU/mL (0.32-4.0)
[2024-02-12 13:48] LABS: Triiodothyronine T3 Free 3.2 pg/mL (2.3-4.2); Triiodothyronine T3 Total 105 ng/dL (76-181)
[2024-02-12 19:19] LABS: Thyroglobulin Antibodies 1 IU/mL (< or = 1); Thyroid Peroxidase Antibodies 35 IU/mL (<9)
== END 2024-02-11 09:11 | disposition home or self-care (01) ==
LOC: HO.HMGCLDS 09:10
PROVIDERS: PCP Internal Medicine; Visit Provider Physician Assistant
DX: E06.3 Autoimmune thyroiditis (principal)
CPT/HCPCS: 36415; 84432; 84439; 84443; 84480; 84481; 86376; 86800

== ENCOUNTER 2024-07-21 11:09 | Outpatient (REF) | payer BC, SELFPAY ==
--- NOTE | ~2024-07-21 | MM_ITS ---
EXAMINATION: DXA BONE DENSITY AXIAL HISTORY: Estrogen deficiency TECHNIQUE: Karma Snap Dual energy absorptiometry (DEXA) of the lumbar spine, total left hip, and femoral neck was performed. COMPARISON: Comparison is made with the prior examination dated 07/05/2020. FINDINGS: The bone mineral density of the lumbar spine is 0.983 with a T-score of -1.6, and a Z-score of -0.2. This represents a BMD change of -3.1% compared to the prior exam. This is statistically significant. The bone mineral density of the left total hip is 0.877 with a T-score of -1.0, and a Z-score of 0.0. This represents a BMD change of 0.3% compared to the prior exam. This is not statistically significant. The bone mineral density of the left femoral neck is 0.916 with a T-score of -0.9, and a Z-score of 0.5. This represents a BMD change of 2.8% compared to the prior exam. FRACTURE RISK: The FRAX index suggests a ten year probability of major osteoporotic fracture of 5.8%, and of hip fracture 0.3%. MM/XR DEXA axial skeleton IMPRESSION: Based on bone mineral density, and according to World Health Organization (WHO) criteria, the diagnosis is consistent with osteopenia. All bone density values are in grams per centimeter squared (g/cm2). Statistically, 68% of repeat scans fall within 1 SD (+/- 0.010 g/cm2 for AP spine L1-L4) and 1 SD (+/- 0.012 g/cm2 for femur total) FRAX is a trademark of the [employer] [place] [facility] [employer], a World Health Organization (WHO) Collaborating Center. Electronically signed by: Morris Oropeza MD 07/21/2024 12:57 PM EDT RP
--- OUTSIDE RECORDS SUMMARY | 2024-07-21 13:48 | XMS_ITS ---
Author Organization [facility] Address [address] [place] [address] Care Team Providers Care Drill Foreman Name Role Phone Brown MCKEON, Tiesha Francis Primary Care Provider Un available Black, Crystal Unavailable [phone] REASON FOR VISIT rs from 06/22/24 Encounters Encounter Location Date Provider [facility] [address] [place] [address] 03/31/2024 Crystal Black Plan Of Treatment No Information Progress Notes * Aj PRUITTOB:1965 ( 58 yo F)Acc No.[id number]:03/31/2024 Patient:?EDMOND Gini :1965???Age:58 Y???Sex:Female Address:[address] [place], [address] * true * Date:? Generated for Printi celestine/Faeddieg/eTransmitting on:?07/21/2024 01:47 PM EDT
--- OUTSIDE RECORDS SUMMARY | 2024-07-21 13:48 | XMS_ITS | Data Portability ---
Author Organization [facility], [address] Address [address] [place] [address] Assessment No assessment recorded. Plan of Treatment Reminders Order Date Submit Date Provider Last Modified By Organization Details Last Modified Time Details Appointments None recorded. Lab rapid strep group A, throat 2023 [email or web address] [facility], [address] [place] [address], [id number], 17:52:45 Referral None recorded. Procedures None recorded. Surgeries None recorded. Imaging None recorded. Medication Orders fluticasone propionate 50 mcg/actuati on nasal spray,suspe nsion 2023 [id number], [address] [place], [place], [phone], 17:52:51 bacitracin 500 unit/gram topical ointment [email or web address] [place] [address] [id number], [address] [place], [place], [phone], 17:37:41 Patient TargetsNo targets recorded. Patient Instructions Encounter Date Encounter Id Patient Instructions Last Modified By Organization Details Last Modified Time 03/14/2024 [id number] sore throat: car e instructions [email or web address] Not available 03/14/2024 17:52:45 Reason for Referral None Reported. Results Created Date Observation Date Name Description Value Unit Range Abnormal Flag Note LastModifiedBy Organization Detail LastModifiedTime 03/14/20 24 03/14/2024 rapid strep group A, throa t Unknown Analyte negati ve Not Available [address], [place], [address], 03/14/2024 17:44:54 Result Notes None recorded. Problems Name Problem SNOMED Code Status Onset Date Resolution Date Notes Provider Name and Address Organization Details Recorded Time Hypothyroidism 95599728 Active Rosie Vargasmarie beyer PA - [facility] 18:21:00 Problem Notes None recorded. Medical Equipment None Reported. Allergies Allergen ID Allergen Name Allergen Category Reaction Reaction Severity Criticality Documentation Date Start Date Code Code System Note Provider Name and Address Organization Details Recorded Time [id number] Phenergan medicatio n Not available Not available Not available 03/14/2024 22897 8 RxNorm Roslyn Betsy beyer PA - [facility] 17:42:25 Medications Name Sig Start Date Stop Date Status Note LastModified by Organization Details LastModified Time ibuprofen 800 mg tablet active Not Available Not Available Not Available bacitracin 500 unit/gram topical ointment APPLY TOPICALLY TO THE AFFECTED AREA TWICE DAILY FOR 10 DAYS 03/14 completed Not Available Not Available Not Available acetaminoph en 500 mg tablet TAKE 2 TABLETS BY MOUTH NEEDED EVERY 6 HOURS 03/14 completed Not Available Not Available Not Available cephalexin 500 mg capsule TAKE 1 CAPSULE BY MOUTH TWICE DAILY FOR 10 DAYS 03/14 completed Not Available Not Available Not Available gabapentin 300 mg capsule 03/14 completed Not Available Not Available Not Available hydroxyzine HCl 10 mg tablet TAKE 1 TABLET BY MOUTH AT BEDTIME NEEDED FOR INSOMNIA OR ACUTE ANXIETY 11/19 completed Not Available Not Available Not Available fluticasone propionate 50 mcg/actuati on nasal spray,suspe nsion [place] 2 sprays every day by intranasa l route for 30 days. 2023 active Not Available Not Available Not Avai lable [employer] Thyroid 30 mg tablet TAKE 1 TABLET BY MOUTH EVERY DAY active Not Available Not Available No t Available [employer] Thyroid 15 mg tablet TAKE 1 TABLET BY MOUTH WITH [employer] THYROID 30MG FOR TOTAL OF 45MG. TAKE BY MOUTH EVERY DAY. active Not Available Not Available No t Available Vitals Date Recorded Body height Body mass index (BMI) Body weight Body temperature Oxygen saturation Oxygen saturation in Arterial blood by Pulse oximetry Heart rate Respiratory rate Pain severity - 0-10 verbal numeric rating [Score] - Reported Systolic blood pressure Diastolic blood pressure Provider Name and Address Organization Details Last Updated DateTime 4 157.48 cm 21 kg/m2 70210.1 2 g 97.7 [degF] 100 % 100 % 50 /min 18 /min 0 131 mm[Hg] 82 mm[Hg] Rosie Ayala PA - [facility] 4 18:18:29 Date Recorded Body height Body mass index (BMI) Body weight Body temperature Respiratory rate Oxygen saturation Oxygen saturation in Arterial blood by Pulse oximetry Pain severity - 0-10 verbal numeric rating [Score] - Reported Heart rate Systolic blood pressure Diastolic blood pressure Provider Name and Address Organization Details Last Updated DateTime 4 157.48 cm 21 kg/m2 26776.1 2 g 97.5 [degF] 14 /min 98 % 98 % 5 50 /min 122 mm[Hg] 72 mm[Hg] Roslyn [place] PA - [facility] 17:44:07 Social History Question Answer Notes LastModified by [employer] Details LastModified Time Tobacco Smoking Status Former Smoker Rosie beyer PA - [facility] 11/20/2023 18:21:47 What Is Your Level Of Alcohol Consumption? Occasional Information not available 11/20/2023 How Many Times Per Week Do You Consume Alcohol? Less Than 1 Time Per Week Information not available 11/20/2023 Have You Had A Flu Shot This Season? No [email or web address] Information not available 03/14/2024 If No, Would You Like A Flu Shot Today? No Information not available 11/20/2023 Have You Had Direct Contact, Or Contact During Intimacy, With Monkeypox Rash, Scabs, Or Body Fluids From A Person With Monkeypox? No Information not available 11/20/2023 What Was The Date Of Your Most Recent Tobacco Screening? 11/20/2023 Information not available 11/20/2023 What Is Your Relationship Status? Information not available 11/20/2023 Do You Use Any Illicit Or Recreational Drugs? No Information not available 11/20/2023 Have You Recently Traveled Abroad? Yes Information not available 11/20/2023 Do You Or Have You Ever Used Any Other Forms Of Tobacco Or Nicotine? No Information not available 11/20/2023 Sex: Unknown Functional Status None recorded. Mental Status None recorded. Family History Relationship Description Onset Age of this Age Resolved Age Notes LastModified by Organization Details LastModified Time Father No current problems or disability Not available 11/19 18:21:03 Mother No current problems or disability Not available 11/19 18:21:03 Medical History No medical history recorded. Gynecological History Statement/Question Response Is there any chance of ? No Obstetrics History GPAL:G 0 P 0 0 0 0 Immunizations Vaccine Type Date Status Note Provider Nam e and Address Organization Details Recorded Time Influenza, MDCK, quadrivalent, PF 9 completed Rosie Lucy null, PA - [facility] 11/20/2023 18:19:06 COVID-19, mRNA, LNP-S, PF, 100 mcg/0.5mL dose or 50 mcg/0.25mL dose 2 completed Rosie Lucy null, PA - [facility] 11/20/2023 18:19:06 Influenza, split virus, trivalent, preservative 0 completed Rosie Lucy null, PA - [facility] 11/20/2023 18:19:06 Influenza, split virus, trivalent, preservative 1 completed Rosie Lucy null, PA - [facility] 11/20/2023 18:19:06 Influenza, split virus, quadrivalent, PF 0 completed Rosie Lucy null, PA - [facility] 11/20/2023 18:19:06 Td (adult), 2 Lf tetanus toxoid, preservative free, adsorbed 4 completed CATRINA Espino [place], [address], PA - [facility] 11/20/2023 18:30:44 Past Encounters Encounter ID Performer Location Encounter Start Date Encounter Closed Date Diagnosis/Indication Diagnosis SNOMED-CT Code Diagnosis ICD10 Code Diagnosis Note [id number] Ary Moya [address] [place] [address] 11/04/2017 14:58:42 11/04/2017 16:37:56 [id number] 2099Charleen Moya [address] [facility] [place] [address] 01/29/2020 10:41:40 01/29/2020 11:51:10 [id number] [address] Moya [address] [place] [address] [place] [address] 06/01/2017 10:46:47 06/01/2017 11:23:22 [id number] CTARINA Espino [address] [place] [address] 11/20/2023 18:07:43 11/20/2023 18:36:55 Dog scratch [id number] W54.8XXA Based on your presentati on and exam today, I am diagnosing you with abrasions to the arm The following are my recommenda tions to help you feel better and aid in resolving this infection: 1. Antibiotic ointment twice a day until starting to heal2. Take Ibuprofen or Tylenol if you do not have any allergies to these medication s. If you take a blood thinner you should not take NSAIDS like Ibuprofen. 3. Do no squeeze or pick at the area. This can cause an infection. 4. No Alcohol or Peroxide on the wound - this will delay healing. The following are warning signs to look out for that would suggest and infection. This would mean you should be seen again:1. Fever > 100.52. Redness is spreading to double the size in 24 hours3. Increased swelling and pain.4. Inability to move a joint5. Swollen lymph nodes that are tender Thank you for using [facility] today, please don't hesitate to call or reach out to us if you have any questions or concerns. [id number] CATRINA Espino [address] [place] [address] 03/14/2024 17:28:51 03/14/2024 17:53:56 Acute pharyngitis [id number] J02.9 Based on your Presentati on, Exam, and Lab Testing you are being diagnosed with Pharyngiti s. Your Rapid Strep Test was Negative. Most likely your sore throat is being caused by a virus, post nasal drip, or silent acid reflux. The following are my other recommenda tions to help with symptoms and is important for this diagnosis: 1. Take Ibuprofen or Tylenol if you do not have any allergies to these medication s. If you take a blood thinner you should not take NSAIDS like Ibuprofen. These medication will help with the inflammati on in your respirator y tract which should help the cough. (I would alternate between Tylenol 650 mg and your Ibuprofen 600 mg every 4 hours)2. Steroid nasal sprays like Flonase or Nasonex (or generic) can help with postnasal drainage2. Do not take any Cold Medication s that have a Decongesta nt in it - this will dry out your throat and make the sore throat worse.3. Drinking Hot Tea with honey can help coat and soothe your throat. I would be seen again if you develop any of the following symptoms.1 . Fever > 101.02. Stiff neck - where you can't turn your neck3. Trouble swallowing your saliva - drooling4. Swelling of a lymph node in your throat that is painful to touch5. Difficulty breathing6 . Severe Headache Thank you for using [facility] today, please feel free to contact our office if you have any questions or concerns. Health Concerns Section Related Observation LastModified by Organization Detai ls LastModified Time None Recorded Concern Status LastModified by Organization Details LastModified Time None Recorded Advance Directives Directive None Recorded Payers Encounter Date Sequence Insurance Name Policy Number Policy Cardenas Covered Member ID Cardenas Member ID Guarantor Name 06/01/2017 1 [facility]: [employer] Yariel Hillman [id number] Gini Jalen 11/04/2017 1 [facility]: [employer] Yariel Hillman [id number] Gini Jalen 01/29/2020 1 [facility]: [employer] Yariel Hillman [id number] Gini Jalen 11/20/2023 1 [facility]: [employer] Yariel Hillman [id number] Gini Rao 03/14/2024 1 [employer] Yariel Hillman [id number] Gini Rao Notes Date Note Type Note Provider Name and Address Organization Details Recorded Time 11/20/2023 text/html 58 y/o female here after being scratched on her R arm by a strange dog CATRINA Espino [address] [place], [address], PA [facility] 11/20/2023 18:33:25 03/14/2024 text/html 58 y/o female here with 5 days of sore throat, some congestion, mild cough, no fevers, chills, body aches. CATRINA Espino [address] [place], [address], [place] [facility] 03/14/2024 17:55:54 OBGyn Episode No OBEpisode recorded.
--- OUTSIDE RECORDS SUMMARY | 2024-07-21 13:48 | XMS_ITS ---
Author Organization [facility] Address [address] [place] [address] Care Team Providers Care Devil Tender Name Role Phone Brown MCKEON, Tiesha Francis Primary Care Provider Un available Crystal Dobson [phone] Encounters Encounter Location Date Provider Diagnosis [facility] [address] [place] [address] 06/22/2024 Crystal Dobson Plan Of Treatment No Information Progress Notes * Aj PRUITTOB:1965 ( 58 yo F)Acc No.[id number]:06/22/2024 Progress Note Patient:?Gini PRUITT Provider:?Crystal Dobson DPM :1965???Age:58 Y???Sex:Female D ate:06/22/2024 Address[address], [id number] Pcp:Michael Prajapati Subjective: * Chief Complaints: * ??? * Medical History:? Objective: * Vitals:? Assessment: Plan: * Treatment: * Images: * The named appointment provid er may or may not be the originator of this progress note, and it is not deemed complete until electronically signed by the appointment provider. Sign off status: Pending * Provider:?Crystal Dobson DPM Date:?2024 Generated for Shirai cleestine/Arielle/eTransmitting on:?07/21/2024 01:47 PM EDT
--- OUTSIDE RECORDS SUMMARY | 2024-07-21 13:48 | XMS_ITS ---
Author Organization [facility] [place] Address [address] [place] [address] Care Team Providers Care Technical Trainer Name Role Phone Brown MCKEON, Tiesha Francis Primary Care Provider Un available Black, Crystal Unavailable [phone] Allergies Allergen (clinical drug ingredient) Drug/Non Drug Allergy documented on EMR Reaction Allergy Type Onset Date Status promethazine Phenergan swelling, rash, mucle spasm Drug Allergy Active Results Component Value Reference Range Notes X ray : Foot, left 3V Reviewed date:07/09/2024 05:16:53 PM Interpretation:See Examination above Performing Lab: Notes/Report: See Examination above REASON FOR VISIT Foot pain, Toe Pain Medications Medication SIG (Take, Route, Frequency, Duration) Notes Start Date End Date Status Jackson Thyroid Not-T aking hydrOXYzine HCl 10 MG as directed Orally Once a day Not-Taking Cortisol Not-Taking Ibuprofen 800 MG 1 tablet every Orall y every 8 hrs for 14 days 11/25/2023 Not-Taking Gabapentin 300 MG 1 capsule Orally at bedtime for 15 days 11/25/2023 Not-Taking Vitamin C Active Cephalexin 500 MG 1 capsule Orally twi ce a day for 10 days 12/25/2023 Not-Taking Acetaminophen Extra Strength 500 MG 2 tablet as needed Orally every 6 hrs for 30 days 11/25/2023 Not-Taking Vitamin D Active Physical Therapy . . . 2-3x/week for 3- 4 weeks 01/02/2024 Not-Taking Thyroid Active Social History Tobacco Use: Social History Observation Description Date Details (start date - stop date) Never Smoker NA - NA Tobacco use other than smoking: Question Answer Notes Are you an other tobacco user? No Tobacco Control (Standard) Question Answer Notes Tobacco use: Nonsmoker Problems Problem Type SNOMED Code ICD Code Onset Dates Problem Status W/U Status Risk Notes Problem Acquired hammer toe of lesser toe of left foot ([id number]) Hammer toe of left foot (M20.42) Active confirmed Vital Signs Height 5ft3in in 07/09/2024 Weight 115 lbs 07/09/2024 BMI 20.37 kg/m2 07/09/2024 Blood pressure systolic 120 mm Hg 07/09/19 25 Blood pressure diastolic 80 mm Hg 025 Encounters Encounter Location Date Provider Diagnosis [facility] [address] [place] [address] 07/09/2024 Crystal Dobson Arthritis M19.90 ; Hammer toe of left foot M20.42 ; Hallux limitus of left foot M20.5X2 ; Localized edema R60.0 ; Orthopedic hardware present Z97.8 and Pain of toe of left foot M79.675 Assessments Encounter Date Diagnosis (ICD Code) Assessment Notes Treatment Notes Treatment Clinical Notes Section Notes 07/09/2024 Arthritis (ICD-10 - M19.90) 07/09/2024 Hammer toe of left foot (ICD-10 - M20.42) 07/09/2024 Hallux limitus of left foot (ICD-10 - M20.5X2) 07/09/2024 Localized edema (ICD-10 - R60.0) 07/09/2024 Orthopedic hardware present (ICD-10 - Z97.8) 07/09/2024 Pain of toe of left foot (ICD-10 - M79.675) Plan Of Treatment Next Appt Details Follow Up: prn, Reason: Progress Notes * Aj PRUITTOB:1965 ( 58 yo F)Acc No.[id number]:07/09/2024 Progress Note Patient:?Gini PRUITT Provider:Radha Dobson DPM :1965???Age:58 Y???Sex:Female D ate:07/09/2024 Address: [address] [id number] Pcp:Michael Prajapati Subjective: * Chief Complaints: * ???Foot painToe Pain * HPI: ???Foot Pain:?Location:?Inside, Great toe joint, LEFT.?Duration:?several years.?Course:?, improved.?Aggravated:?any pressure.?Treatments:?rest, ijeoma implant left.?Toe pain:?Nature:?tenderness, inflammed.?Location:?2nd toe, Left foot.?Duration:?several months.?Onset/Cause:?gradual.?Course:?worse.?Aggravated by:?standing/walking.? * ROS:?General/Constitutional:?Nausea?denies.?Vomiting?denies.?Hunger Thirst?denies.?Loss appetite?denies.?Chills?denies.?Fatigue?denies.?Fever?denies.?Night Sweats?denies.?Unexplained weight loss?denies.?Ophthalmologic:?Blurred vision?denies.?Red eye?denies.?HEENTM:?Dentures?denies.?Dizziness?denies.?Glasses/contacts??admits.?Retinopathy?d enies.?Blurred/double vision?denies.?TMJ?denies.?Discharge/drainage?denies.?Implants?denies.?Hard of hearing ?denies.?Difficulty chewing/swallowing/speaking?denies.?Nose bleeds?denies.?Sore mouth?denies.?Swollen glands?denies.?Respiratory:?On Oxygen?denies.?Pneumonia/pleurisy?denies.?Bronchitis?denies.?Emphysema?denies.?C oughing?denies.?Cough blood?denies.?Shortness of breath?denies.?Wheezing?denies.?Cardiovascular:?Pacemaker?denies.?MVP?denies.?WPW?denies.?CHF?denies.?Heart attack?denies.?Septal defect?denies.?Rapid beat?denies.?Chest pain ?denies.?Atrial Fib.?denies.?Murmur/Palpitations??admits.?Gastrointestinal:?Hemorrhoids?denies.?Stomach/Abdominal pain?denies.?Dark blood stool?denies.?Irritable bowel ??admits.?Constipation?denies.?Diarrhea?denies.?Vomiting?denies.?Hematology:?Swelling?denies.?Bruising?denies.?Bleeding problem?denies.?Genitourinary:?Blood urine?denies.?Frequent/Painfu/urination/bladder control?denies.?Kidney stones?denies.?Infection (UTI)?denies.?Nephropathy?denies.?Musculoskeletal:?Hammertoes?denies.?Bunions?denies.?Scoliosis/kyphosis?denies.?Muscle cramps / walking?denies.?Generalized aches and pains?denies.?Weakness?denies.?Integ.:?Smith?denies.?Scars?denies.?Corns/calluses?denies.?Ingrown nails?denies.?Painful nails?denies.?Rashes?denies.?Neurologic:?Difficulty sleeping??admits.?Bipolar?denies.?Brain disorder?denies.?Balance trouble?denies.?Confusion?denies.?Fainting/blackouts?denies.?Headache?denies.?Tr emors?denies.? * Medical History:? * Surgical History:?fused disc in neck hernia growing and imbilical right foot surgery 04/22/17Implant 1st MTPJ Left 12/11/2023 * Hospitalization/Major Diagno stic Procedure:?Denies Past Hospitalization * Family History:?Mother: dece ased, diagnosed with Diabetic - NIDDM, Unspecified essential hypertension, Unspecified cerebral artery occlusion with cerebral infarction.?Father: , diagnosed with Unspecified heart disease.? * Social History:?Tobacco Use:?Tobacco use other than smoking?Are you an other tobacco user??No ?Tobacco Control (Standard)?Tobacco use:?Nonsmoker ???Miscellaneous:?Caffeine: yes, 1-2 cups per day. ?Children: yes. ?Exercise: yes. ?Marital status: . ?Occupation: legistics. * Medications:?TakingThyroid V itamin C Vitamin D Taking Thyroid Taking Vitamin C Taking Vitamin D Not-Taking/PRNPhysical Therapy . . . . 2-3x/week Cephalexin 500 MG Capsule 1 capsule Orally twice a day Acetaminophen Extra Strength 500 MG Tablet 2 tablet as needed Orally every 6 hrs Ibuprofen 800 MG Tablet 1 tablet every Orally every 8 hrs Gabapentin 300 MG Capsule 1 capsule Orally at bedtime hydrOXYzine HCl 10 MG Tablet as directed Orally Once a day Cortisol Jackson Thyroid Medication List reviewed and reconciled with the patientNot-Taking/PRN Physical Therapy . . . . 2-3x/week Not-Taking/PRN Cephalexin 500 MG Capsule 1 capsule Orally twice a day Not- Taking/PRN Acetaminophen Extra Strength 500 MG Tablet 2 tablet as needed Orally every 6 hrs Not-Taking/PRN Ibuprofen 800 MG Tablet 1 tablet every Orally every 8 hrs Not-Taking/PRN Gabapentin 300 MG Capsule 1 capsule Orally at bedtime Not- Taking/PRN hydrOXYzine HCl 10 MG Tablet as directed Orally Once a day Not-Taking/PRN Cortisol Not-Taking/PRN Jackson Thyroid Medication List reviewed and reconciled with the patient * Allergies:?Phenergan: swelli ng, rash, mucle spasmyes[Allergies Verified] Objective: * Vitals:?Ht: 5ft3in, Wt:115, BMI:20.37, Shoe size: 7.5, BP:120/80mm Hg, Ht-cm: 160.02 cm, Wt-k.16 kg. * Examination: ???General Examination: ?GENERAL APPEARANCE:?Reveals a pleasant, alert, well nourished, well- developed, well hydrated individual, who demonstrates proper attention to hygiene/body habitus, and is in no acute distress, Pt serves as own historian for office visit today.?ORIENTED:?person, place, and time.?Orthopedic: ?MUSCLE STRENGTH:?5/5 all groups in a symmetrical fashion, B/L.?GAIT ABNORMALITY:?Pronated, abducted angle and base of gate.?BUNION:?inflammation present, (-) Pain on palpation, Limited 1st MPJ Dorsal ROM, Limited 1st MPJ Plantar ROM no pain associated with ROM.?DIGITAL DEFORMITIES:?Digital contracture, PIPJ, 2-5 B/L, incompl-reducible with WB, or to push-up test, no over, nor underlapping, Reveals pain/swelling/redness/enlargement of PIPJ, T1.?Neurological: ?SENSORY:?Neurological exam reveals intact sensorium, pain sensation normal, vibration sensation intact, pinprick sensation is normal in the lower extremities, Pt denies, anesthesia, burning, paresthesia, tingling, B/L.?TINEL'S COMPRESSION:? Negative, Saphenous nerve distribution.?Vascular: ?DP PULSES (B):?2/4, B/L.?PT PULSES (B):?2/4, B/L.?CAPILLARY FILL TIME:?immediate, all digits, B/L.?TROPHIC CONDITION-TEXTURE/ELASTICITY/TURGOR/HAIR GROWTH (B):?normal, B/L.?TEMPERTURE GRADIENT (C):?normal, warm to cool, proximal to distal, B/L, B/L.?PIGMENTATION:?normal, B/L.?Dermatologic: ?SKIN FINDINGS:?Skin exam reveals normal color, texture, elasticity, and turgor. There are no masses, nor excrescences. The interspaces are clear, B/L.?X-Rays - IMAGING REPORT: ?Clinical Indication(s):?Evaluate Biomechanical Deformity.?Views:?3 views of Foot , LEFT , AP , LAT , MO.?Findings:?normal bone and soft tissue density consistent for patients age and sex, increase in soft tissue contour and density at the symptomatic site, radiolucent soft tissue gas absent.?Digits:?show asymmetrical joint space narrowing at the PIPJ consistent with clinical finding of hammertoe deformity, 2nd digit, show elongated plantarflexed MT with hypertrophy of the MTH.?HAV:?there is rectus alignment of the with respect to the sesamoids, internal fixation appears intact and stable.?Fracture:?Negative fractures identified.? Assessment: * Assessment: 1.?Arthritis - M19.90???2.?H ammer toe of left foot - M20.42 (Primary)???Specify :Chronic problem, Worse (4)???3.?Hallux limitus of left foot - M20.5X2???Specify :Chronic problem, Stable (1=3,2=4)???4.?Localized edema - R60.0???5.?Orthopedic hardware present - Z97.8???6.?Pain of toe of left foot - M79.675??? Plan: * Treatment: * Procedure Codes:?60329 X-RAY EXAM OF LEFT FOOT 3V, Modifiers: 26 , LT * Preventive Medicine:? ??Counseling:?Discussion:?-14: Office or other outpatient visit for the evaluation and management of an established patient, which required a medically appropriate history and/or examination and MODERATE level of DECISION MAKING for: 1 OR MORE CHRONIC PROBLEM(S) THATS WORSENING, 2 STABLE CHRONIC PROBLEMS, A NEWLY DIAGNOSED PROBLEM WITH UNCERTAIN PROGNOSIS, AN ACUTE COMPLICATED INJURY WITH MULTIPLE TREATMENT OPTIONS, OR AN ACUTE PROBLEM WITH ACCOMPANYING SYSTEMIC SYMPTOMS, THAT POSE(S) A MODERATE RISK OF MORBIDITY. THIS CONDITION MAY ALSO INCLUDE RX DRUG MANAGEMENT, OR A DECISON FOR MINOR SURGERY. The visit on the day of the encounter encompassed interpreting the data and educating the patient as to the nature of their condition, treatment options available according to their individual PMH, meds, allergies, and overall health/living conditions, as well as any potential risks or complications that may occur from a failure to adhere to, and participate in, the recommended course of therapy. The discussion included a complete verbal, and/or written explanation of the examination results, any x-rays taken, the proposed diagnosis, and outline of the treatment plan. A schedule for future care needs was also explained. The patient verbalized an understanding of the instructions at this time and agreed to be an active participant in their treatment. If the patient should think of any questions or concerns after the visit, I have encouraged the patient to call the office.?BioMech.:?I discussed the Pts foot biomechanics with them and how it relates to the post-op results.?Digital Surgery:?Digital surgery was discussed with the patient, including the risks of surgery(below), vs not having surgery (persistent pain, deformity, risk for skin ulceration/infection, loss of toe), the potential surg complications, the anesthesia, and the usual post-op course. No guarentees were given. We discussed the potential procedure complications including, but not limited to: pain, swelling, bleeding, scarring, numbness, infection, delayed/non healing, floppy/unstable/shorthened toe, recurrence, failure of the procedure, overcorrection leading to plantarflexed/downward positioned toe, recurrence, need for further surgery, as well as the possibility for loss of the toe itself. We discussed the use of local anesthesia, and the usual post-op course for healing. No guarentees were given. The patient verbally indicated a full understanding of the above conversation, and any other of their questions were answered to their satisfaction. Alternatives to the procedure were also discussed, including conservative care. I also discussed the usual post-operative course and gave no guarantees regarding outcome, We elected to try conservative treatment at the present time.?Digital Treatment:?HT- I explained to the patient the possible etiologies of Hammertoes, including genetics/foot type/shoegear/activity level/exercise routine and the risks/benefits of all the different treatment options for their pain including: No treatment at all, Rest, Ice, New/supportive/wider/deeper Shoe gear, Digital Padding/Strapping/Taping/Bracing/Gel protective sleeves, Foot/Ankle AFO Bracing, Stretching exercises, Deep Tissue Massage, Arch support/shoe inserts with splay metatarsal padding, and Custom orthoses. I insisted that any digital devices be removed daily and not worn overnight for safety. The patient is to carefully examine the toes daily for any skin irritation while using any splinting or padding device. The advantages and disadvantages of each option were discussed and the patients questions re: shoe gear, padding, custom vs prefabricated inserts, activity level, and consistency in home treatment regimens for optimal success were answered to their verbally confirmed satisfaction.?Treatment:?Discussed and reviewed the X-rays with the patient. Discussed implant is in proper placemet appears to be intake and stable. Discussed ROM of 1st MTPJ. I would of liked more Dorsiflexion of the 1 st MTPJ. Reviewed ROM exrercises again with the pt. Pt is very pleased with the outcome she is able to do things she could not do before.? ??Screening/Special Tests:?Fall Risk?Screening:?No falls in the past year ?FALLS: Screening for Future Fall Risk?Have you had any falls with injury in the past year??No * Follow Up:?prn * Images: * Sign off status: Completed true * Provider:?Crystal Dobson DPM Date:?2024 Generated for Meghan sprague/Arielle/Pema on:?07/21/2024 01:47 PM EDT History and Physical Notes * HPI (History of Present Illness) Category Sub-Category Detail Notes Category Not es Toe pain Nature: tenderness, inflammed Location: 2nd toe, Left foot Duration: several months Onset/Cause: gradual Course: worse Aggravated by: standing/walking Foot Pain Location: Inside, Great toe joint, LEF T Duration: several years Course: , improved Aggravated: any pressure Treatments: rest, ijeoma implant l eft Examination Category Sub-Category Detail Notes Category Not es Neurological SENSORY: Neurological exa m reveals intact sensorium, pain sensation normal, vibration sensation intact, pinprick sensation is normal in the lower extremities, Pt denies, anesthesia, burning, paresthesia, tingling, B/L TINEL'S COMPRESSION: Negative, Saphenous nerve distribution Dermatologic SKIN FINDINGS: Skin exam reveal s normal color, texture, elasticity, and turgor. There are no masses, nor excrescences. The interspaces are clear, B/L Orthopedic GAIT ABNORMALITY: Pronated, abducted angl e and base of gate BUNION: inflammation present , (-) Pain on palpation, Limited 1st MPJ Dorsal ROM, Limited 1st MPJ Plantar ROM no pain associated with ROM DIGITAL DEFORMITIES: Digital contracture , PIPJ, 2-5 B/L, incompl-reducible with WB, or to push-up test, no over, nor underlapping, Reveals pain/swelling/redness/enlargement of PIPJ, T1 MUSCLE STRENGTH: 5/5 all groups in a symmetrical fashion, B/L General Examination GENERAL APPEARANCE: Reveals a pleasant, alert, well nourished, well-developed, well hydrated individual, who demonstrates proper attention to hygiene/body habitus, and is in no acute distress, Pt serves as own historian for office visit today ORIENTED: person, place, and t glenn [facility] DP PULSES (B): 2/4, B/L PT PULSES (B): 2/4, B/L CAPILLARY FILL TIME: immediate, all digi ts, B/L TEMPERTURE GRADIENT (C): normal, warm to cool, proximal to distal, B/L, B/L TROPHIC CONDITION-TEXTURE/ELASTICITY/TURGOR/HAIR GROWTH (B): normal, B/L PIGMENTATION: normal, B/L X-Rays - IMAGING REPORT Findings: normal b one and soft tissue density consistent for patients age and sex, increase in soft tissue contour and density at the symptomatic site, radiolucent soft tissue gas absent Fracture: Negative fractures i dentified Digits: show asymmetrical kevin int space narrowing at the PIPJ consistent with clinical finding of hammertoe deformity, 2nd digit, show elongated plantarflexed MT with hypertrophy of the MTH HAV: there is rectus alig nment of the with respect to the sesamoids, internal fixation appears intact and stable Views: 3 views of Foot , LE FT , AP , LAT , MO Clinical Indication(s): Evaluate Biomech anical Deformity
--- OUTSIDE RECORDS SUMMARY | 2024-07-21 13:48 | XMS_ITS | Patient Health Record ---
[facility] Address [address] [place] [address] Care Team Providers Care Outpatient Surgery Rn Name Role Phone Brown MCKEON, Tiesha Francis Primary Care Provider Un available Black, Crystal Unavailable [phone] Allergies Allergen (clinical drug ingredient) Drug/Non Drug Allergy documented on EMR Reaction Allergy Type Onset Date Status promethazine Phenergan swelling, rash, mucle spasm Drug Allergy Active Results Component Value Reference Range Notes X ray : Foot, left 3V Reviewed date:11/25/2023 12:24:54 PM Interpretation:See Examination above Performing Lab: Notes/Report: See Examination above X ray : Foot, left 3V Reviewed date:12/13/2023 11:13:54 AM Interpretation:See Examination above Performing Lab: Notes/Report: See Examination above X ray : Foot, left 3V Reviewed date:12/20/2023 11:44:52 AM Interpretation:See Examination above Performing Lab: Notes/Report: See Examination above X ray : Foot, left 3V Reviewed date:12/25/2023 04:03:56 PM Interpretation:See Examination above Performing Lab: Notes/Report: See Examination above X ray : Foot, left 2V Reviewed date:01/02/2024 11:40:30 AM Interpretation:See Examination above Performing Lab: Notes/Report: See Examination above X ray : Foot, left 3V Reviewed date:01/30/2024 12:34:33 PM Interpretation:See Examination above Performing Lab: Notes/Report: See Examination above X ray : Foot, left 3V Reviewed date:07/09/2024 05:16:53 PM Interpretation:See Examination above Performing Lab: Notes/Report: See Examination above Reason For Referral No Information Medications Medication SIG (Take, Route, Frequency, Duration) Notes Start Date End Date Status Vitamin C Active Standish Thyroid Not-T aking Thyroid Active hydrOXYzine HCl 10 MG as directed Orally Once a day Not-Taking Cortisol Not-Taking Ibuprofen 800 MG 1 tablet every Orall y every 8 hrs for 14 days 11/25/2023 Not-Taking Gabapentin 300 MG 1 capsule Orally at bedtime for 15 days 11/25/2023 Not-Taking Cephalexin 500 MG 1 capsule Orally twi ce a day for 10 days 12/25/2023 Not-Taking Acetaminophen Extra Strength 500 MG 2 tablet as needed Orally every 6 hrs for 30 days 11/25/2023 Not-Taking Vitamin D Active Physical Therapy . . . 2-3x/week for 3- 4 weeks 01/02/2024 Not-Taking Social History Tobacco Use: Social History Observation Description Date Details (start date - stop date) Never Smoker NA - NA Tobacco use other than smoking: Question Answer Notes Are you an other tobacco user? 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) Active confirmed Problem Plantar nerve lesion (807837016) Lesion of plantar nerve, left lower limb (G57.62) Active confirmed Problem Arthritis (5714458) Arthritis (M19.90) Active confirmed Problem Acquired hammer toe of lesser toe of left foot (4615735309798 9103) Hammer toe of left foot (M20.42) Active confirmed Problem Acquired left hallux rigidus (4961004538653 05) Hallux rigidus of left foot (M20.22) Active confirmed Vital Signs Blood pressure diastolic 80 mm Hg 07/09/2024 Height 5ft3in in 07/09/2024 Blood pressure systolic 120 mm Hg 07/09/2024 Weight 115 lbs 07/09/2024 BMI 20.37 kg/m2 07/09/2024 Encounters Encounter Location Date Provider Diagnosis [facility] [place] [address] [place] [id number] 12/11/2023 Crystal Black [address] [address] 11/25/2023 Crystal Black Pain in left foot M79.672 ; Hallux rigidus of left foot M20.22 ; Pain in left ankle and joints of left foot M25.572 ; Bursitis of left foot M77.52 and Arthritis M19.[address] [address] 12/13/2023 Crystal Black Pain in left foot M79.672 ; Hallux rigidus of left foot M20.22 ; Pain in left ankle and joints of left foot M25.572 ; Bursitis of left foot M77.52 and Arthritis M19.90 [facility] [address] [place] [address] 12/20/2023 Crystal Black Pain in left foot M79.672 ; Hallux rigidus of left foot M20.22 ; Pain in left ankle and joints of left foot M25.572 ; Bursitis of left foot M77.52 and Arthritis M19.[address] [address] 12/25/2023 Crystal Black Pain in left foot M79.672 ; Hallux rigidus of left foot M20.22 ; Pain in left ankle and joints of left foot M25.572 ; Bursitis of left foot M77.52 ; Arthritis M19.90 ; Localized edema R60.0 and Erythema L53.[address] [address] 01/02/2024 Crystal Black Pain in left foot M79.672 ; Hallux rigidus of left foot M20.22 ; Pain in left ankle and joints of left foot M25.572 ; Bursitis of left foot M77.52 ; Arthritis M19.90 ; Localized edema R60.0 and Erythema L53.[address] [address] 01/30/2024 Crystal Black Pain in left foot M79.672 ; Hallux rigidus of left foot M20.22 ; Pain in left ankle and joints of left foot M25.572 ; Bursitis of left foot M77.52 ; Arthritis M19.90 and Localized edema R60.[address] [address] 02/27/2024 Crystal Black Pain in left foot M79.672 ; Hallux rigidus of left foot M20.22 ; Pain in left ankle and joints of left foot M25.572 ; Bursitis of left foot M77.52 ; Arthritis M19.90 and Localized edema R60.[address] [address] 07/09/2024 Crystal Black Arthritis M19.90 ; Hammer toe of left foot M20.42 ; Hallux limitus of left foot M20.5X2 ; Localized edema R60.0 ; Orthopedic hardware present Z97.8 and Pain of toe of left foot M79.[address] [address] 12/12/[address] [address] 12/25/[address] [address] 01/20/[address] [address] 03/31/2024 Crystal Black Assessments Encounter Date Diagnosis (ICD Code) Assessment Notes Treatment Notes Treatment Clinical Notes Section Notes 11/25/2023 Pain in left foot (ICD-10 - M79.672) 11/25/2023 Hallux rigidus of left foot (ICD-10 - M20.22) 12/13/2023 Pain in left foot (ICD-10 - M79.672) 12/13/2023 Hallux rigidus of left foot (ICD-10 - M20.22) 12/20/2023 Pain in left foot (ICD-10 - M79.672) 12/25/2023 Pain in left foot (ICD-10 - M79.672) 01/02/2024 Pain in left foot (ICD-10 - M79.672) 01/30/2024 Pain in left foot (ICD-10 - M79.672) 02/27/2024 Pain in left foot (ICD-10 - M79.672) 07/09/2024 Arthritis (ICD-10 - M19.90) 07/09/2024 Hammer toe of left foot (ICD-10 - M20.42) 07/09/2024 Hallux limitus of left foot (ICD-10 - M20.5X2) 01/30/2024 Pain in left ankle and joints of left foot (ICD-10 - M25.572) 02/27/2024 Hallux rigidus of left foot (ICD-10 - M20.22) 01/30/2024 Hallux rigidus of left foot (ICD-10 - M20.22) 01/02/2024 Hallux rigidus of left foot (ICD-10 - M20.22) 12/25/2023 Pain in left ankle and joints of left foot (ICD-10 - M25.572) 12/25/2023 Hallux rigidus of left foot (ICD-10 - M20.22) 12/20/2023 Hallux rigidus of left foot (ICD-10 - M20.22) 11/25/2023 Pain in left ankle and joints of left foot (ICD-10 - M25.572) 12/13/2023 Pain in left ankle and joints of left foot (ICD-10 - M25.572) 11/25/2023 Bursitis of left foot (ICD-10 - M77.52) 12/13/2023 Bursitis of left foot (ICD-10 - M77.52) 12/20/2023 Pain in left ankle and joints of left foot (ICD-10 - M25.572) 12/25/2023 Bursitis of left foot (ICD-10 - M77.52) 01/02/2024 Pain in left ankle and joints of left foot (ICD-10 - M25.572) 01/30/2024 Bursitis of left foot (ICD-10 - M77.52) 07/09/2024 Localized edema (ICD-10 - R60.0) 02/27/2024 Pain in left ankle and joints of left foot (ICD-10 - M25.572) 07/09/2024 Orthopedic hardware present (ICD-10 - Z97.8) 02/27/2024 Bursitis of left foot (ICD-10 - M77.52) 01/30/2024 Arthritis (ICD-10 - M19.90) 01/02/2024 Bursitis of left foot (ICD-10 - M77.52) 12/20/2023 Bursitis of left foot (ICD-10 - M77.52) 12/25/2023 Arthritis (ICD-10 - M19.90) 11/25/2023 Arthritis (ICD-10 - M19.90) 12/13/2023 Arthritis (ICD-10 - M19.90) 12/25/2023 Localized edema (ICD-10 - R60.0) 12/20/2023 Arthritis (ICD-10 - M19.90) 01/30/2024 Localized edema (ICD-10 - R60.0) 01/02/2024 Arthritis (ICD-10 - M19.90) 02/27/2024 Arthritis (ICD-10 - M19.90) 07/09/2024 Pain of toe of left foot (ICD-10 - M79.675) 01/02/2024 Localized edema (ICD-10 - R60.0) 12/25/2023 Erythema (ICD-10 - L53.9) 02/27/2024 Localized edema (ICD-10 - R60.0) 01/02/2024 Erythema (ICD-10 - L53.9) Plan Of Treatment No Information Insurance Providers Payer Name Payer Address Payer Phone Subscriber Number Group Number Insured Name Patient Relationship to Insured Coverage Start Date Coverage End Date [facility] [id number] [place] [address] [phone] [id number] Yariel Hillman Spouse - patient is the spouse of the insured 1 Medical (General) History Medical History History ICD Code Chicken pox Thyroid disorder Surgical History Surgery Date(Month/Year) fused disc in neck hernia growing and imbilical right foot surgery 04/22/17 Implant 1st MTPJ Left 12/11/2023
== END 2024-07-21 11:10 | disposition home or self-care (01) ==
LOC: HO.MAMMO 11:09
PROVIDERS: PCP Internal Medicine; Visit Provider Internal Medicine
DX: Z12.31 Encounter for screening mammogram for malignant neoplasm of breast (principal); Z13.820 Encounter for screening for osteoporosis; Z78.0 Asymptomatic menopausal state
CPT/HCPCS: 77063; 77067; 77080

== ENCOUNTER → 2024-07-21 11:12 | Outpatient (BNV) | payer BC, SELFPAY | PROVIDERS: PCP Internal Medicine; Visit Provider Radiology Diagnostic Radiology | DX: E28.39 Other primary ovarian failure (principal) | CPT/HCPCS: 77085 ==

== ENCOUNTER 2024-09-02 11:48 | Outpatient (AMB) | payer BC, SELFPAY ==
[2024-09-02 12:09] VITALS: BP 106/68; PULSE 48; RESP 16; TEMP 36.6; O2SAT 98; BMI 21.6
--- NOTE | 2024-09-02 12:09 | A.OFFPC_ITS ---
Vital Signs 09/02/24 12:09 Height 5 ft 2 in Weight 118 lb 6 oz BMI 21.6 BP 106/68 Blood Pressure Location Rt brachial Position Sitting Respiration 16 Pulse 48 L Pulse Source Pulse Oximeter Temp 98 F Temp Source Oral Pulse Oximetry (%) 98 Oxygen Delivery Method Room Air Intake Visit Reasons: PE Intake Note: Pt is here today for annual physical. Last mammogram 07/21/24 Last pap 07/26/22 Allergies promethazine [From PHENERGAN] Allergy (Intermediate, Verified 09/02/24 12:13) uncontrolled muscle twitches, hives Medication List - Last Reconciled 09/02/24 by Tiesha Dasilva MD ascorbate calcium (vitamin C) 1 g PO DAILY cholecalciferol (vitamin D3) 125 mcg PO DAILY thyroid (pork) (GOVERNMENT MINISTER Thyroid) 30 mg PO DAILY thyroid (pork) (GOVERNMENT MINISTER Thyroid) 15 mg PO DAILY Tobacco use date assessed: 09/02/24 Dental Screening Dental Screen Date: 09/02/24 Did you have a dental visit in the last 12 months?: Yes Did you have a dental problem in the last 6 months where you did not have access to dental care?: No Was dental information given to patient?: Patient has dentist HPI PE HPI Details 58-year-old lady with history of Graves disease, 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 She is currently being seen at OBGYN in [facility] for her routine Pap and pelvic exam, last done in 2022, has an appointment to see a new provider later this year.. She is up-to-date with her screening mammogram, done 07/21/2024 with benign findings. She also had a bone density scan done at the same time which showed presence of osteopenia in multiple sites. No history of fracture. Last colonoscopy was done in [address] Hu, overdue for repeat colon cancer screening She has mild hyperlipidemia with family history of coronary disease. She was seen by Cardiology who did a Coronary calcium score to evaluate for coronary atherosclerosis that may guide further treatment. Her coronary calcium score is 9.34 in the LAD, with probability having coronary calcification at 28%. Patient has been advised to start statin by Cardiology but declined. She is very active, exercises regularly, and has been eating healthy diet. She has been feeling well, exercises regularly goes to the gym daily, and has been compliant with healthy eating habits. 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 Paternal Grandfather No problems noted. Paternal Grandmother No problems noted. Sister No problems noted. Sister No problems noted. Son No problems noted. Son No problems noted. Social History Household Members: Spouse Housing: House Alcohol intake: current Patient Tobacco Use Status: Former Tobacco user Tobacco use type: Cigarette Years Smoked: 20 yrs e-Cigarette/Vaping Use: Never Used Current occupational status: employed Cognitive needs: No Hearing needs: No Vision needs: Yes Questionnaire PHQ-9 Over the last 2 weeks, how often have you been bothered by any of the following problems? 1. Little interest or pleasure in doing things: not at all 2. Feeling down, depressed, or hopeless: not at all 3. Trouble falling or staying asleep, or sleeping too much: not at all 4. Feeling tired or having little energy: not at all 5. Poor appetite or overeating: not at all 6. Feeling bad about yourself - or that you are a failure or have let yourself or your family down: not at all 7. Trouble concentrating on things, such as reading the newspaper or watching television: not at all 8. Moving or speaking so slowly that other people could have noticed. Or the opposite - being so fidgety or restless that you have been moving around a lot more than usual: not at all 9. Thoughts that you would be better off or of hurting yourself in some way: not at all Total score: 0 Depression Screening Interpretation: Negative Depression Screening Done: Yes 54652 - PHQ-9 Billing: Yes Source: Developed by Drs. Morris Cheung, Sintia Thomas, Rudi Klein and colleagues, with an educational bob from [employer]. Thrive Questionnaire Date Thrive assessed: 09/02/24 I am a: Patient What is your living situation today?: I have a steady place to live Within the past 12 months, did the food you bought not last and you didn't have the money to get more?: Never true Within the past 12 months, did you worry whether your food would run out before you got money to buy more?: Never true Do you have trouble paying for medicines?: No Do you have trouble getting transportation to medical appointments?: No Do you have trouble paying your heating and electricity bill?: No Do you have trouble taking care of your child, family member or friend?: No Do you have trouble with day-to-day activities such as bathing, preparing meals, shopping, managing finances, etc.?: No Are you currently unemployed and looking for a job?: No Are you interested in more education?: No Please select the resources that you would like help with: None Currently or been in a relationship where the following occur: No concerns reported THRIVE Score: 0 AUDIT C Alcohol Use Questionnaire (AUDIT-C) 1. How often do you have a drink containing alcohol?: 2-4 times a month 2. How many drinks containing alcohol do you have on a typical day when you are drinking?: 1 or 2 3. How often do you have six or more drinks on one occasion?: Never Total Score: 2 Score Reviewed/Action Taken: Yes TAURUS-7 AMB Questionnaire TAURUS-7 Date TAURUS - 7 assessed: 09/02/24 Feeling nervous, anxious, or on edge: 0 = Not at all Not being able to stop or control worryin = Not at all Worrying too much about different things: 0 = Not at all Trouble relaxin = Not at all Being so restless that it is hard to sit still: 0 = Not at all Becoming easily annoyed or irritable: 0 = Not at all Feeling afraid as if something awful might happen: 0 = Not at all Total TAURUS-7 score (0-4 normal; 5-9 mild; 10-14 moderate; 15-21 severe): 0 Source: Developed by Drs. Morris Cheung, Sintia Thomas, Rudi Klein and colleagues, with an educational bob from [employer]. TAURUS-7 Assessment Billing TAURUS-7 Assessment Tool: TAURUS-7 Assessment 28349 Review of Systems Const Reports no additional complaints and Denies fatigue Eyes Details: 07/2024 eye exam at [facility] Reports no additional complaints ENT Details: Dental prophylaxis q.6 months Reports no additional complaints Card Reports no additional complaints Resp Reports no additional complaints GI Reports no additional complaints Reports no additional complaints Musc Reports as per HPI and Reports joint swelling (Left MCP joint) Skin/Breast Denies breast pain, Denies breast mass, Denies lesions and Denies rash Neuro Reports no additional complaints and Denies Sensory deficit (Neuro) Psych Reports no additional complaints Endo Details: Sees [facility] for treatment of her 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 currently on GOVERNMENT MINISTER thyroid Reports no additional complaints and Denies fatigue Leander/Lymph Reports no additional complaints Aller/Immun Reports no additional complaints Physical exam (Primary Care) Vital Signs: Last Vital Signs Temp 98 F 09/02/24 12:09 Pulse 42 L 09/02/24 12:09 Resp 16 09/02/24 12:09 BP 106/68 09/02/24 12:09 Pulse Ox 98 09/02/24 12:09 Oxygen Delivery Method Room Air 09/02/24 12:09 BMI result Body Mass Index 21.6 Tobacco/Smoking Status: Tobacco use Status Tobacco use date assessed 09/02/24 09/02/24 12:11 Patient Tobacco Use Status Former Tobacco user 09/02/24 12:11 Tobacco use type Cigarette 09/02/24 12:11 e-Cigarette/Vaping Use Never Used 09/02/24 12:11 PHQ-9: PHQ-9 Score PHQ-9: Total score 0 09/02/24 12:56 Depression Screening Interpretation: Negative Thrive Assessment: Date of Thrive Assessment Date Thrive assessed 09/02/24 09/02/24 12:14 Currently or been in a relationship where the following occur: No concerns reported Const General: healthy appearing, comfortable and no acute distress Orientation/consciousness: patient oriented x3 HENMT Head: Yes normocephalic and Yes atraumatic Eyes General: appearance normal, both eyes and all related structures Neck Neck: Yes full ROM, Yes no lymphadenopathy and Yes supple Thyroid: Thyroid normal (Nonpalpable) Chest Other: Up-to-date with her screening mammogram, done 07/21/2024 with negative findings Resp Auscultation: clear to auscultation bilaterally Cardio Rate: bradycardic Rhythm: regular rhythm Heart sounds: no murmurs GI Inspection: Yes normal to inspection Palpation (GI): Soft to palpation, nontender and no guarding General: Yes no CVA tenderness and Yes deferred (Up-to-date with her cervical cancer screening and pelvic exam goes to [facility]) Back/Spine/Pelvis Back: no CVA tenderness and No back tenderness Skin General skin exam: no rashes or lesions noted Neuro General: patient oriented x3, gait normal, tone normal, moves all extremities, Normal light touch and pain sensation, no focal motor deficits and CN's II-XI intact bilaterally Sensory Exam: No Sensory deficit (Neuro) Extrem General: Yes normal to inspection, Yes full ROM, Yes no joint enlargement, Yes no clubbing, cyanosis or edema and Yes normal gait Psych Appearance: grossly normal and well kempt Mental Status: mental status grossly normal Affect: normal affect Attitude: cooperative Thought process: Normal thought process present Thought content: Normal thought content present Coding Level of Care Code Est Pt Prev Care 40-64y(54198) Diagnoses Annual visit for general adult medical examination with abnormal findings Z00.01 Colon cancer screening Z12.11 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 - Encounter for general adult medical examination with abnormal findings Plan: Will check appropriate labs. Continue regular dental visit every 6 months and regular eye exams, at least every 2 years, goes to [facility]. Take adequate calcium in diet and vitamin-D 3 at 2000 IU per cap once a day, in addition to weight-bearing exercises to help maintain good muscle tone and weight control. Instructed to do self-breast exam, and continue with yearly mammogram currently up-to-date. Latest bone density scan showed presence of osteopenia in multiple sites, continue with regular exercise and taking vitamin D3 and calcium supplements.. She is up-to-date with her vaccines, does not want to get a COVID booster. Referred Dr. Courtney for her screening colonoscopy. (2) Colon cancer screening: Code(s): Z12.11 - Encounter for screening for malignant neoplasm of colon Plan: Referred to Dr. Courtney for her colon cancer screening. 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: Code(s): E03.8 - Other specified hypothyroidism; E06.3 - Autoimmune thyroiditis Category: Medical Plan: Will check free T4, free T3 TSH and thyroid peroxidase level, continued on current dose of Dawson thyroid, goes to [facility] for her follow- up (4) Elevated coronary artery calcium score: Code(s): R93.1 - Abnormal findings on diagnostic imaging of heart and coronary circulation Category: Medical Plan: Will check another fasting lipid panel, patient does not want to start taking any statins at present time Orders: Orders Aspartate Amino Transferase Today E03.8 - Other specified hypothyroidism, E06.3 - Autoimmune thyroiditis, Z00.01 - Encounter for general adult medical examination with abnormal findings Alanine Aminotransferase Today E03.8 - Other specified hypothyroidism, E06.3 - Autoimmune thyroiditis, Z00.01 - Encounter for general adult medical examination with abnormal findings Thyroid Peroxidase Antibodies Today E03.8 - Other specified hypothyroidism, E06.3 - Autoimmune thyroiditis, Z00.01 - Encounter for general adult medical examination with abnormal findings Free T4 (Free Thyroxine) Today E03.8 - Other specified hypothyroidism, E06.3 - Autoimmune thyroiditis, Z00.01 - Encounter for general adult medical examination with abnormal findings Lipid Panel Today E03.8 - Other specified hypothyroidism, E06.3 - Autoimmune thyroiditis, Z00.01 - Encounter for general adult medical examination with abnormal findings Basic Metabolic Panel Fasting Today E03.8 - Other specified hypothyroidism, E06.3 - Autoimmune thyroiditis, Z00.01 - Encounter for general adult medical examination with abnormal findings Thyroid Stimulating Hormone Today E03.8 - Other specified hypothyroidism, E06.3 - Autoimmune thyroiditis, Z00.01 - Encounter for general adult medical ex amination with abnormal findings Vitamin D 25-OH Total Today E03.8 - Other specified hypothyroidism, E06.3 - Autoimmune thyroiditis, Z00.01 - Encounter for general adult medical examination with abnormal findings Complete Blood Count Auto Diff Today E03.8 - Other specified hypothyroidism, E06.3 - Autoimmune thyroiditis, Z00.01 - Encounter for general adult medical examination with abnormal findings Referrals Gastroenterology Referral Z12.11 - Encounter for screening for malignant neopl asm of colon
--- OUTSIDE RECORDS SUMMARY | 2024-09-02 14:16 | XMS_ITS ---
Author Organization [facility] Address [address] [place] [address] Care Team Providers Care Fountain Supervisor Name Role Phone Brown MCKEON, Tiesha Francis Primary Care Provider Un available Black, Crystal Unavailable [phone] Allergies Allergen (clinical drug ingredient) Drug/Non Drug [...] Duration) Notes Start Date End Date Status Hutchinson Thyroid Not-T aking hydrOXYzine HCl 10 MG [...] toe of lesser toe of left foot ([id number] 9103) Hammer toe of left foot (M20.42) Active confirmed Vital Signs Height 5ft3in in 07/09/2024 Weight 115 lbs 07/09/2024 BMI 20.37 kg/m2 07/09/2024 Blood pressure systolic 120 mm Hg 07/09/19 25 Blood pressure diastolic 80 mm Hg 025 Encounters Encounter Location Date Provider Diagnosis [facility] [place] [address] [place] [address] 07/09/2024 Crystal Dobson Arthritis M19.90 ; Hammer [...] * Aj PRUITTOB:1965 ( 58 yo F)Acc No.[id number]:07/09/2024 Progress Note Patient:?Gini PRUITT Provider:Radha Dobson DPM :1965???Age:58 Y???Sex:Female D ate:07/09/2024 Address: [address] [id number] Pcp:Michael Prajapati Subjective: * Chief Complaints: * [...] as directed Orally Once a day Cortisol Hutchinson Thyroid Medication List reviewed and reconciled with [...] Orally Once a day Not-Taking/PRN Cortisol Not-Taking/PRN Hutchinson Thyroid Medication List reviewed and reconciled with [...] - M79.675??? Plan: * Treatment: * Procedure Codes:?06223 X-RAY EXAM OF LEFT FOOT 3V, Modifiers: [...] Dobson DPM Date:?2024 Generated for Meghan sprague/Arielle/Pema on:?09/02/2024 02:16 PM EDT History and Physical Notes * [...]
--- OUTSIDE RECORDS SUMMARY | 2024-09-02 14:16 | XMS_ITS | Data Portability ---
Author Organization [facility], [address] Address [address] [place] [address] Assessment No assessment recorded. Plan of Treatment Reminders Order Date Submit Date Provider Last Modified By Organization Details Last Modified Time Details Appointments None recorded. Lab rapid strep group A, throat 2023 [email or web address] [address], [address] [place] [address], [id number], 17:52:45 Referral None recorded. Procedures None recorded. Surgeries None recorded. Imaging None recorded. Medication Orders fluticasone propionate 50 mcg/actuati on nasal spray,suspe nsion 2023 [id number], [address], [place], [phone], 17:52:51 bacitracin 500 unit/gram topical ointment [email or web address] [place] [address] [id number], [address], [place], [phone], 17:37:41 Patient TargetsNo targets recorded. Patient Instructions Encounter Date Encounter Id Patient Instructions Last Modified By Organization Details Last Modified Time 03/14/2024 [id number] sore throat: car e instructions [email or web address] Not available 03/14/2024 17:52:45 Reason for Referral None Reported. Results Created Date Observation Date Name Description Value Unit Range Abnormal Flag Note LastModifiedBy Organization Detail LastModifiedTime 03/14/20 24 03/14/2024 rapid strep group A, throa t Unknown Analyte negati ve Not Available [address], [place], [address], 03/14/2024 17:44:54 Result Notes None recorded. Problems Name Problem SNOMED Code Status Onset Date Resolution Date Notes Provider Name and Address Organization Details Recorded Time Hypothyroidism 94628073 Active Rosie Vargasmarie beyer PA - [facility] 18:21:00 Problem Notes None recorded. Medical Equipment None Reported. Allergies Allergen ID Allergen Name Allergen Category Reaction Reaction Severity Criticality Documentation Date Start Date Code Code System Note Provider Name and Address Organization Details Recorded Time 2545932 Phenergan medicatio n Not available Not available Not available 03/14/2024 49906 8 RxNorm Roslyn Betsy beyer PA - [...] propionate 50 mcg/actuati on nasal spray,suspe nsion [place] 2 sprays every day by intranasa l route for 30 days. 2023 active Not Available Not Available Not Avai lable FILTER TENDER JELLY Thyroid 30 mg tablet TAKE 1 TABLET BY MOUTH EVERY DAY active Not Available Not Available No t Available FILTER TENDER JELLY Thyroid 15 mg tablet TAKE 1 TABLET BY MOUTH WITH FILTER TENDER JELLY THYROID 30MG FOR TOTAL OF 45MG. TAKE [...] Updated DateTime 4 157.48 cm 21 kg/m2 03370.1 2 g 97.7 [degF] 100 % 100 [...] Updated DateTime 4 157.48 cm 21 kg/m2 23474.1 2 g 97.5 [degF] 14 /min 98 % 98 % 5 50 /min 122 mm[Hg] 72 mm[Hg] Roslyn Suring PA - [facility] 17:44:07 Social History Question Answer Notes LastModified by Kromatid ion Details LastModified Time Tobacco Smoking Status Former Smoker Rosie beyer PA - [facility] 11/20/2023 18:21:47 What Is Your Level [...] adsorbed 4 completed CATRINA Espino [place], [address], [place] - [facility] 11/20/2023 18:30:44 Past Encounters Encounter ID Performer Location Encounter Start Date Encounter Closed Date Diagnosis/Indication Diagnosis SNOMED-CT Code Diagnosis ICD10 Code Diagnosis Note [id number] Ary Moya [address] [place] [address] 11/04/2017 14:58:42 11/04/2017 16:37:56 [id number] 2099Charleen Moya [address] [place] [address] 01/29/2020 10:41:40 01/29/2020 11:51:10 [id number] [address]Adam Moya [address] [place] [address] [place] [address] 06/01/2017 10:46:47 06/01/2017 11:23:22 [id number] CATRINA Espino [address] [place] [address] 11/20/2023 18:07:43 11/20/2023 18:36:55 Dog scratch [id number] W54.8XXA Based on your presentati on and [...] that are tender Thank you for using [facility] [employer] today, please don't hesitate to call or reach out to us if you have any questions or concerns. [id number] CATRINA Espino [address] [place] [address] 03/14/2024 17:28:51 03/14/2024 17:53:56 Acute pharyngitis [id number] J02.9 Based on your Presentati on, Exam, [...] . Severe Headache Thank you for using [facility] today, please feel free to contact our [...] Member ID Guarantor Name 06/01/2017 1 [facility] Yariel Hillman [id number] Gini Jalen 11/04/2017 1 [facility] Yariel Hillman [id number] Gini Jalen 01/29/2020 1 [facility] Yariel Hillman [id number] Gini Jalen 11/20/2023 1 [facility] Yariel Hillman [id number] Gini Rao 03/14/2024 1 [employer] Yariel Hillman [id number] Gini Rao Notes Date Note Type Note Provider Name and Address Organization Details Recorded Time 11/20/2023 text/html 58 y/o female here after being scratched on her R arm by a strange dog CATRINA Espino [address] [place], [address], [place] [facility] 11/20/2023 18:33:25 03/14/2024 text/html 58 y/o female here with 5 days of sore throat, some congestion, mild cough, no fevers, chills, body aches. CATRINA Espino [address] [place], [address], [place] [facility] 03/14/2024 17:55:54 OBGyn Episode No OBEpisode recorded.
--- OUTSIDE RECORDS SUMMARY | 2024-09-02 14:16 | XMS_ITS ---
Author Organization [facility] Address [address] [place] [address] Care Team Providers Care Bottling Line Attendant Name Role Phone Brown MCKEON, Tiesha Francis Primary Care Provider Un available Black, Crystal Unavailable [phone] REASON FOR VISIT rs from 06/22/24 Encounters Encounter Location Date Provider Diagnosis [facility] [address] [place] [address] 03/31/2024 Crystal Black Plan Of Treatment No Information Progress Notes * Aj PRUITTOB:1965 ( 58 yo F)Acc No.[id number]:03/31/2024 Patient:?EDMOND Gini :1965???Age:58 Y???Sex:Female Address:[address] [place], [address] * true * Date:? Generated for Printi celestine/Faeddieg/eTransmitting on:?09/02/2024 02:15 PM EDT
--- OUTSIDE RECORDS SUMMARY | 2024-09-02 14:16 | XMS_ITS ---
Author Organization [facility] Address [address] [place] [address] Care Team Providers Care Gas Plant Worker Name Role Phone Brown MCKEON, Tiesha Francis Primary Care Provider Un available Crystal Dobson [phone] Encounters Encounter Location Date Provider Diagnosis [facility] [address] [place] [place] [address] 06/22/2024 Crystal Dobson Plan Of Treatment No Information Progress Notes * Aj PRUITTOB:1965 ( 58 yo F)Acc No.[id number]:06/22/2024 Progress Note Patient:?Gini PRUITT Provider:?Crystal Dobson DPM :1965???Age:58 Y???Sex:Female D ate:06/22/2024 Address[address], [id number] Pcp:Michael Prajapati Subjective: * Chief Complaints: * ??? * Medical History:? Objective: * Vitals:? Assessment: Plan: * Treatment: * Images: * The named appointment provid er may or may not be the originator of this progress note, and it is not deemed complete until electronically signed by the appointment provider. Sign off status: Pending * Provider:?Crystal Dobson DPM Date:?2024 Generated for Shirai celestine/Arielle/eTransmitting on:?09/02/2024 02:16 PM EDT
--- OUTSIDE RECORDS SUMMARY | 2024-09-02 14:16 | XMS_ITS | Patient Health Record ---
Author Organization [facility] Tree Address [address] [facility] [place] [address] Care Team Providers Care Haircutter Name Role Phone Brown MCKEON, Tiesha Francis Primary Care Provider Un available Black, Crystal Unavailable [phone] Allergies Allergen (clinical drug ingredient) Drug/Non Drug [...] Date End Date Status Vitamin C Active [place] Thyroid Not-T aking Thyroid Active hydrOXYzine HCl [...] Status Risk Notes Problem Acquired hallux valgus (72209426) Hallux valgus (acquired), left foot (M20.12) Active confirmed Problem Acquired hammer toe of right foot (8481847947016 105) Other hammer toe(s) (acquired), right foot (M20.41) Active confirmed Problem Plantar nerve lesion (945601319) Lesion of plantar nerve, 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) Active confirmed Problem Plantar nerve lesion (174232353) Lesion of plantar nerve, left lower limb (G57.62) Active confirmed Problem Arthritis (0151072) Arthritis (M19.90) Active confirmed Problem Acquired hammer toe of lesser toe of left foot (1407822706188 9103) Hammer toe of left foot (M20.42) Active confirmed Problem Acquired left hallux rigidus (9703079272843 05) Hallux rigidus of left foot (M20.22) Active confirmed Vital Signs Blood pressure diastolic 80 mm Hg 07/09/2024 Height 5ft3in in 07/09/2024 Blood pressure systolic 120 mm Hg 07/09/2024 Weight 115 lbs 07/09/2024 BMI 20.37 kg/m2 07/09/2024 Encounters Encounter Location Date Provider Diagnosis [facility] [address] [place] [address] 12/11/2023 Crystal Black [address] [address] 11/25/2023 Crystal Black Pain in left foot M79.672 ; Hallux rigidus of left foot M20.22 ; Pain in left ankle and joints of left foot M25.572 ; Bursitis of left foot M77.52 and Arthritis M19.[address] [address] 12/13/2023 Crystal Black Pain in left foot M79.672 ; Hallux rigidus of left foot M20.22 ; Pain in left ankle and joints of left foot M25.572 ; Bursitis of left foot M77.52 and Arthritis M19.90 [facility] [address] [place] [address] 12/20/2023 Crystal Black Pain in left foot M79.672 ; Hallux rigidus of left foot M20.22 ; Pain in left ankle and joints of left foot M25.572 ; Bursitis of left foot M77.52 and Arthritis M19.[address] [address] 12/25/2023 Crystal Black Pain in left foot M79.672 ; Hallux rigidus of left foot M20.22 ; Pain in left ankle and joints of left foot M25.572 ; Bursitis of left foot M77.52 ; Arthritis M19.90 ; Localized edema R60.0 and Erythema L53.[address] [address] 01/02/2024 Crystal Black Pain in left foot M79.672 ; Hallux rigidus of left foot M20.22 ; Pain in left ankle and joints of left foot M25.572 ; Bursitis of left foot M77.52 ; Arthritis M19.90 ; Localized edema R60.0 and Erythema L53.[address] [address] 01/30/2024 Crystal Black Pain in left foot M79.672 ; Hallux rigidus of left foot M20.22 ; Pain in left ankle and joints of left foot M25.572 ; Bursitis of left foot M77.52 ; Arthritis M19.90 and Localized edema R60.[address] [address] 02/27/2024 Crystal Black Pain in left foot M79.672 ; Hallux rigidus of left foot M20.22 ; Pain in left ankle and joints of left foot M25.572 ; Bursitis of left foot M77.52 ; Arthritis M19.90 and Localized edema R60.[address] [address] 07/09/2024 Crystal Black Arthritis M19.90 ; Hammer toe of left foot M20.42 ; Hallux limitus of left foot M20.5X2 ; Localized edema R60.0 ; Orthopedic hardware present Z97.8 and Pain of toe of left foot M79.[address] [address] 12/12/[address] [address] 12/25/[address] [address] 01/20/[address] [address] 03/31/2024 Crystal Black Assessments Encounter Date Diagnosis [...] Insured Coverage Start Date Coverage End Date [facility] [id number] [place] [address] [id number] Yariel Hillman Spouse - patient is the spouse of the insured 1 Medical (General) History Medical History History ICD Code Chicken pox Thyroid disorder Surgical History Surgery Date(Month/Year) fused disc in neck hernia growing and imbilical right foot surgery 04/22/17 Implant 1st MTPJ Left 12/11/2023
== END 2024-09-02 12:58 | disposition home or self-care (01) ==
LOC: HO.HMCC 11:48
PROVIDERS: PCP Internal Medicine; Visit Provider Internal Medicine
DX: Z00.01 Encounter for general adult medical examination with abnormal findings (principal); Z12.11 Encounter for screening for malignant neoplasm of colon; E03.8 Other specified hypothyroidism; E06.3 Autoimmune thyroiditis; R93.1 Abnormal findings on diagnostic imaging of heart and coronary circulation

== ENCOUNTER → 2024-09-02 11:48 | Outpatient (BNVA) | payer BC, SELFPAY | PROVIDERS: PCP Internal Medicine; Visit Provider Internal Medicine | DX: Z00.01 Encounter for general adult medical examination with abnormal findings (principal); E03.8 Other specified hypothyroidism; E06.3 Autoimmune thyroiditis; R93.1 Abnormal findings on diagnostic imaging of heart and coronary circulation | CPT/HCPCS: 96127 ==

== ENCOUNTER 2024-09-14 09:43 | Outpatient (REF) | payer BC, SELFPAY ==
--- OUTSIDE RECORDS SUMMARY | 2024-09-14 10:40 | XMS_ITS | Patient Health Record ---
Author Organization [facility] Tree Address [address] [facility] [place] [address] Care Team Providers Care Paper Box Maker Name Role Phone Brown MCKOEN, Tiesha Francis Primary Care Provider Un available Black, Crystal Unavailable [phone] Allergies Allergen (clinical drug ingredient) Drug/Non Drug [...] Date End Date Status Vitamin C Active [place] Thyroid Not-T aking Thyroid Active hydrOXYzine HCl [...] Status Risk Notes Problem Acquired hallux valgus (15193044) Hallux valgus (acquired), left foot (M20.12) Active confirmed Problem Acquired hammer toe of right foot (5069264892873 105) Other hammer toe(s) (acquired), right foot (M20.41) Active confirmed Problem Plantar nerve lesion (691325363) Lesion of plantar nerve, 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) Active confirmed Problem Plantar nerve lesion (474432751) Lesion of plantar nerve, left lower limb (G57.62) Active confirmed Problem Arthritis (0755207) Arthritis (M19.90) Active confirmed Problem Acquired hammer toe of lesser toe of left foot (2443130549285 9103) Hammer toe of left foot (M20.42) Active confirmed Problem Acquired left hallux rigidus (9822478459003 05) Hallux rigidus of left foot (M20.22) Active confirmed Vital Signs Blood pressure diastolic 80 mm Hg 07/09/2024 Height 5ft3in in 07/09/2024 Blood pressure systolic 120 mm Hg 07/09/2024 Weight 115 lbs 07/09/2024 BMI 20.37 kg/m2 07/09/2024 Encounters Encounter Location Date Provider Diagnosis [facility] [address] [place] [address] 12/11/2023 Crystal Black [address] [address] 11/25/2023 Crystal Black Pain in left foot M79.672 ; Hallux rigidus of left foot M20.22 ; Pain in left ankle and joints of left foot M25.572 ; Bursitis of left foot M77.52 and Arthritis M19.[address] [address] 12/13/2023 Crystal Black Pain in left foot M79.672 ; Hallux rigidus of left foot M20.22 ; Pain in left ankle and joints of left foot M25.572 ; Bursitis of left foot M77.52 and Arthritis M19.90 [facility] [address] [place] [address] 12/20/2023 Crystal Black Pain in left foot M79.672 ; Hallux rigidus of left foot M20.22 ; Pain in left ankle and joints of left foot M25.572 ; Bursitis of left foot M77.52 and Arthritis M19.[address] [address] 12/25/2023 Crystal Black Pain in left foot M79.672 ; Hallux rigidus of left foot M20.22 ; Pain in left ankle and joints of left foot M25.572 ; Bursitis of left foot M77.52 ; Arthritis M19.90 ; Localized edema R60.0 and Erythema L53.[address] [address] 01/02/2024 Crystal Black Pain in left foot M79.672 ; Hallux rigidus of left foot M20.22 ; Pain in left ankle and joints of left foot M25.572 ; Bursitis of left foot M77.52 ; Arthritis M19.90 ; Localized edema R60.0 and Erythema L53.[address] [address] 01/30/2024 Crystal Black Pain in left foot M79.672 ; Hallux rigidus of left foot M20.22 ; Pain in left ankle and joints of left foot M25.572 ; Bursitis of left foot M77.52 ; Arthritis M19.90 and Localized edema R60.[address] [address] 02/27/2024 Crystal Black Pain in left foot M79.672 ; Hallux rigidus of left foot M20.22 ; Pain in left ankle and joints of left foot M25.572 ; Bursitis of left foot M77.52 ; Arthritis M19.90 and Localized edema R60.[address] [address] 07/09/2024 Crystal Black Arthritis M19.90 ; Hammer toe of left foot M20.42 ; Hallux limitus of left foot M20.5X2 ; Localized edema R60.0 ; Orthopedic hardware present Z97.8 and Pain of toe of left foot M79.[address] [address] 12/12/[address] [address] 12/25/[address] [address] 01/20/[address] [address] 03/31/2024 Crystal Black Assessments Encounter Date Diagnosis [...] Insured Coverage Start Date Coverage End Date [facility] [id number] [place] [address] [phone] [id number] Yariel Hillman Spouse - patient is the spouse of the insured 1 Medical (General) History Medical History History ICD Code Chicken pox Thyroid disorder Surgical History Surgery Date(Month/Year) fused disc in neck hernia growing and imbilical right foot surgery 04/22/17 Implant 1st MTPJ Left 12/11/2023
--- OUTSIDE RECORDS SUMMARY | 2024-09-14 10:41 | XMS_ITS | Data Portability ---
Author Organization [facility], [address] [place] [address] Assessment No assessment recorded. Plan of Treatment Reminders Order Date Submit Date Provider Last Modified By Organization Details Last Modified Time Details Appointments None recorded. Lab rapid strep group A, throat 2023 [email or web address] [id number], [address] [place] [address], [phone], 17:52:45 Referral None recorded. Procedures None recorded. Surgeries None recorded. Imaging None recorded. Medication Orders fluticasone propionate 50 mcg/actuati on nasal spray,suspe nsion 2023 [id number], [address] [place], [place], [id number], 17:52:51 bacitracin 500 unit/gram topical ointment [email or web address] [place] [address] [id number], [address] [place], [place], [phone], 17:37:41 Patient TargetsNo targets recorded. Patient Instructions Encounter Date Encounter Id Patient Instructions Last Modified By Organization Details Last Modified Time 03/14/2024 [id number] sore throat: car e instructions [email or web address] Not available 03/14/2024 17:52:45 Reason for Referral None Reported. Results Created Date Observation Date Name Description Value Unit Range Abnormal Flag Note LastModifiedBy Organization Detail LastModifiedTime 03/14/20 24 03/14/2024 rapid strep group A, throa t Unknown Analyte negati ve Not Available [address], [place], [address], 03/14/2024 17:44:54 Result Notes None recorded. Problems Name Problem SNOMED Code Status Onset Date Resolution Date Notes Provider Name and Address Organization Details Recorded Time Hypothyroidism 31389943 Active Rosie Vargasmarie beyer PA - [facility] 18:21:00 Problem Notes None recorded. Medical Equipment None Reported. Allergies Allergen ID Allergen Name Allergen Category Reaction Reaction Severity Criticality Documentation Date Start Date Code Code System Note Provider Name and Address Organization Details Recorded Time 5925817 Phenergan medicatio n Not available Not available Not available 03/14/2024 09499 8 RxNorm Roslyn Betsy beyer PA - [...] propionate 50 mcg/actuati on nasal spray,suspe nsion [place] 2 sprays every day by intranasa l route for 30 days. 2023 active Not Available Not Available Not Avai lable [employer] Thyroid 30 mg tablet TAKE 1 TABLET BY MOUTH EVERY DAY active Not Available Not Available No t Available [employer] Thyroid 15 mg tablet TAKE 1 TABLET BY MOUTH WITH [employer] THYROID 30MG FOR TOTAL OF 45MG. TAKE [...] Updated DateTime 4 157.48 cm 21 kg/m2 28221.1 2 g 97.7 [degF] 100 % 100 [...] Updated DateTime 4 157.48 cm 21 kg/m2 57911.1 2 g 97.5 [degF] 14 /min 98 % 98 % 5 50 /min 122 mm[Hg] 72 mm[Hg] Roslyn Cantwell PA - [facility] 17:44:07 Social History Question Answer Notes LastModified by Looxii ion Details LastModified Time Tobacco Smoking Status Former Smoker Rosie beyer PA - [facility] 11/20/2023 18:21:47 What Is Your Level [...] adsorbed 4 completed CATRINA Espino [place], [address], [place] - [facility] 11/20/2023 18:30:44 Past Encounters Encounter ID Performer Location Encounter Start Date Encounter Closed Date Diagnosis/Indication Diagnosis SNOMED-CT Code Diagnosis ICD10 Code Diagnosis Note [id number] [facility]Adam Moya [address] [place] [address] 11/04/2017 14:58:42 11/04/2017 16:37:56 [id number] [facility] [facility] _Chi Олег Moya [address] [place] [address] 01/29/2020 10:41:40 01/29/2020 11:51:10 [id number] [address] _Adam Navarreter [address] [place] [address] 06/01/2017 10:46:47 06/01/2017 11:23:22 [id number] CATRINA MONIQUE [address] [place] [address] 11/20/2023 18:07:43 11/20/2023 18:36:55 Dog scratch 312533373 W54.8XXA Based on your presentati on and [...] that are tender Thank you for using [facility] today, please don't hesitate to call or reach out to us if you have any questions or concerns. [id number] CATRINA Espino [address] [place] [address] 03/14/2024 17:28:51 03/14/2024 17:53:56 Acute pharyngitis [id number] J02.9 Based on your Presentati on, Exam, [...] . Severe Headache Thank you for using [facility] today, please feel free to contact our [...] Cardenas Member ID Guarantor Name 06/01/2017 1 [facility]: [employer] Yariel Hillman [id number] Gini Jalen 11/04/2017 1 [facility]: [employer] Yairel Hillman [id number] Gini Jalen 01/29/2020 1 [facility]: [employer] Yariel Hillman [id number] Gini Jalen 11/20/2023 1 [employer]: [employer] Yariel Hillman [id number] Gini Jalen 03/14/2024 1 [facility] [employer] [place] [employer] Yariel Hillman [id number] Gini Jalen Notes Date Note Type Note Provider Name and Address Organization Details Recorded Time 11/20/2023 text/html 58 y/o female here after being scratched on her R arm by a strange dog CATRINA Espino [address] [place], [address], [place] - [facility] 11/20/2023 18:33:25 03/14/2024 text/html 58 y/o female here with 5 days of sore throat, some congestion, mild cough, no fevers, chills, body aches. CATRINA Espino [address] [place], [address], [place] - [facility] 03/14/2024 17:55:54 OBGyn Episode No OBEpisode recorded.
[2024-09-14 13:17] LABS: MANUAL DIFF FLAG NO
[2024-09-14 13:26] LABS: Basophils Percent Auto 0.9 % (0-2); Eosinophils Absolute Auto 0.1 X10*3/uL (0.0-0.4); Eosinophils Percent Auto 1.5 % (0-4); Hematocrit 40.3 % (37.0-47.0); Hemoglobin 13.3 g/dl (12.0-16.0); Imm Gran Abs Auto 0.04 X10*3/uL (0.00-0.03); Imm Gran Pct Auto 0.9 % (0.0-0.4); Lymphocytes Absolute Auto 1.5 X10*3/uL (1.2-4.9); Lymphocytes Percent Auto 32.8 % (20-40); Mean Corpuscular Hemoglobin 31.3 pg (27.0-33.0); Mean Corpuscular Volume 94.8 fL (80.0-98.0); Monocytes Absolute Auto 0.3 X10*3/uL (0.1-1.2); Monocytes Percent Auto 6.5 % (2-11); Neutrophils Absolute Auto 2.7 x10*3/uL (2.0-8.3); Neutrophils Percent Auto 57.4 % (45-73); Platelet Count 200 X10*3/uL (160-400); Red Blood Count 4.25 X10*6/uL (4.20-5.50); White Blood Count 4.6 X10*3/uL (4.8-10.8)
[2024-09-14 13:49] LABS: Alanine Aminotransferase 16 U/L (0-31); Anion Gap 11 (12-20); Aspartate Amino Transferase 27 U/L (5-31); Blood Urea Nitrogen 15 mg/dL (9-16); Carbon Dioxide 27 mmol/L (22-29); Chloride 105 mmol/L (96-108); Cholesterol 214 mg/dL (<200); Estimated Glomerular Filt Rate > 60; Glucose Fasting 96 mg/dL (60-99); HDL Cholesterol 71 mg/dL (>40); LDL Cholesterol Calculated 130 mg/dL (<100); Potassium 4.1 mmol/L (3.3-5.1); Sodium 139 mmol/L (135-145); Triglycerides 67 mg/dL (<150)
[2024-09-14 14:05] LABS: Free T4 (Free Thyroxine) 0.83 ng/dL (0.71-1.85); Thyroid Stimulating Hormone 1.89 uIU/mL (0.32-4.0); Vitamin D 25-OH Total 117.9 ng/mL (>30)
[2024-09-15 17:03] LABS: Thyroid Peroxidase Antibodies 64 IU/mL (<9)
== END 2024-09-14 09:44 | disposition home or self-care (01) ==
LOC: HO.HMGCLDS 09:43
PROVIDERS: PCP Internal Medicine; Visit Provider Internal Medicine
DX: E03.8 Other specified hypothyroidism (principal); E06.3 Autoimmune thyroiditis; Z00.01 Encounter for general adult medical examination with abnormal findings
CPT/HCPCS: 36415; 80048; 80061; 82306; 84439; 84443; 84450; 84460; 85025; 86376

== ENCOUNTER 2024-12-11 10:23 | Outpatient (AMB) | payer BC, SELFPAY ==
--- OUTSIDE RECORDS SUMMARY | 2024-06-22 09:30 | XMS_ITS ---
Author Organization [facility] Address [address] [place] [address] Care Team Providers Care Alarm Service Technician Name Role Phone Brown MCKEON, Tiesha Francis Primary Care Provider Un available Crystal Dobson [phone] Encounters Encounter Location Date Provider Diagnosis [facility] [address] [place] [address] 06/22/2024 Crystal Black Plan Of Treatment No Information Progress Notes * EDMONDAj DamonOB:1965 ( 59 yo F)Acc No.[id number]:06/22/2024 Progress Note Patient: Gini DUDLEY Provider: Nicolas Dobson DPM :1965 A ge:58 Y S ex:Female Date:06/22/2024 Address:[address] [id number] Pcp:Michael Prajapati Subjective: * Chief Complaints: * [...] 0 06/22/2024 Generated for Printi ng/Faxing/eTransmitting on: 12/11/2024 10:32 AM EDT
--- NOTE | 2024-12-11 10:23 | MHC.PC.OV ---
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 Recent fasting labs done showed thyroid levels are within normal limits, but LDL cholesterol still elevated at 130 mg/dL, she already has been following healthy diet, and exercises on a regular basis. She had an elevated coronary calcium score obtained by her stock crane operator and is concerned about his. Already eats red yeast rice every now and then but does not want to be started on any cholesterol-lowering medication at present time. 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 Paternal Grandfather No problems noted. Paternal Grandmother No problems noted. Sister No problems noted. Sister No problems noted. Son No problems noted. Son No problems noted. Social History Household Members: Spouse Housing: House Alcohol intake: current Patient Tobacco Use Status: Former Tobacco user Tobacco use type: Cigarette Years Smoked: 20 yrs e-Cigarette/Vaping Use: Never Used Current occupational status: employed Cognitive needs: No Hearing needs: No Vision needs: Yes Questionnaire Thrive Questionnaire Date Thrive assessed: 12/11/24 I am a: Patient What is your living situation today?: I have a steady place to live Within the past 12 months, did the food you bought not last and you didn't have the money to get more?: Never true Within the past 12 months, did you worry whether your food would run out before you got money to buy more?: Never true Do you have trouble paying for medicines?: No Do you have trouble getting transportation to medical appointments?: No Do you have trouble paying your heating and electricity bill?: No Do you have trouble taking care of your child, family member or friend?: No Do you have trouble with day-to-day activities such as bathing, preparing meals, shopping, managing finances, etc.?: No Are you currently unemployed and looking for a job?: No Are you interested in more education?: No Please select the resources that you would like help with: None Currently or been in a relationship where the following occur: No concerns reported THRIVE Score: 0 TAURUS-7 AMB Questionnaire TAURUS-7 Date TAURUS - 7 assessed: 09/02/24 Source: Developed by Drs. Morris Cheung, Sintia Thomas, Rudi Klein and colleagues, with an educational bob from [employer]. Review of Systems Const Reports no additional complaints and Denies fatigue Eyes Reports no additional complaints ENT Details: Dental prophylaxis q.6 months Reports no additional complaints Card Reports no additional complaints Resp Reports no additional complaints GI Reports no additional complaints Reports no additional complaints Musc Reports as per HPI and Reports joint swelling (Left MCP joint) Skin/Breast Denies breast pain, Denies breast mass, Denies lesions and Denies rash Neuro Reports no additional complaints and Denies Sensory deficit (Neuro) Psych Reports no additional complaints Endo Details: Sees [facility] for treatment of her 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 currently on CONVERTIBLE POWER SHOVEL OPERATOR thyroid Reports no additional complaints and Denies fatigue Leander/Lymph Reports no additional complaints Aller/Immun Reports no additional complaints Physical exam (Primary Care) Tobacco/Smoking Status: Tobacco use Status Tobacco use date assessed 09/02/24 12/11/24 10:25 Patient Tobacco Use Status Former Tobacco user 12/11/24 10:25 Tobacco use type Cigarette 12/11/24 10:25 e-Cigarette/Vaping Use Never Used 12/11/24 10:25 Thrive Assessment: Date of Thrive Assessment Date Thrive assessed 12/11/24 12/11/24 10:25 Currently or been in a relationship where the following occur: No concerns reported Neuro Sensory Exam: No Sensory deficit (Neuro) Telehealth Telehealth Telehealth Platform: Rentabilities Location of provider rendering services: practice address Location of patient: address on file Patient Identification confirmed using: Name, : Yes Telehealth method: video Patient verbally consented to treatment: Yes Patient verbally consented to billing insurance company: Yes Patient informed of any privacy concerns related to visit: Yes Minutes spent on Phone/Video with Pt.: 15 Results Reviewed Results Reviewed: Name: Gini Rao Age/Sex: 58/F : 1965 Unit#: [id number] Attend Dr: Tiesha Dasilva MD Re09/14/24 Status: DEP REF Location: [facility] Disch: SPEC : [id number] CARIN: 09/14/24 STATUS: COMP REQ : [id number] RECD: 09/14/24-[address]: Tiesha Dasilva MD COMP: 09/14/245 ENTERED: 09/14/24-[address]: ORDERED: Met Prof Fast, AST, ALT, Lipid Panel, Vitamin D 25-OH, Free T4, TSH Test Result Flag Reference Sodium 139 135-145 mmol/L Potassium 4.1 3.3-5.1 mmol/L CL 105 96-108 mmol/L CO2 27 22-29 mmol/L Gap 11 L 12-20 BUN 15 9-16 mg/dL Creat 0.87 0.5-1.4 mg/dL eGFR > 60 Chronic Kidney Disease: Estimated GFR < 60 mL/min/1.73m2 Severe Kidney Disease: Estimated GFR < 15 mL/min/1.73m2 FBS 96 60-99 mg/dL CA 9.0 8.4-10.2 mg/dL AST (GOT) 27 5-31 U/L ALT (GPT) 16 0-31 U/L Triglyceride 67 <150 mg/dL Desirable Triglyceride: less than 150 mg/dL Borderline High Triglyceride 150-199 mg/dL High Triglyceride: 200-499 mg/dL Very High Triglyceride: greater than or equal to 5OO mg/dL Cholesterol 214 H <200 mg/dL Desirable Cholesterol: less than 200 mg/dL Borderline High Cholesterol: 200-239 mg/dL High Cholesterol: greater than 239 mg/dL LDL Calculated 130 H <100 mg/dL Desirable LDL: less than 100 mg/dL Near Optimal/Above Optimal LDL: 110-129 mg/dL Borderline High LDL: 130-159 mg/dL High LDL: 160-189 mg/dL Very High LDL: greater than or equal to 190 mg/dL HDL 71 >40 mg/dL Desirable HDL: greater than 40 mg/dL Note: This HDL assay may give artificially low results in patients with liver disease. Vitamin D 25-OH 117.9 >30 ng/mL Health Based Reference Values* < 20 ng/mL Deficient 20-30 ng/mL Insufficient > 30 ng/mL Sufficient *Anson BONILLA. N Engl J Med. 2007;357:266-280 There is no well-established upper level of normal vitamin D levels. Some laboratories use 50 ng/mL as an upper limit of normal. However, toxicity is patient-dependent and may occur at any level. Careful correlation with the patient's presentation is necessary and, if there is concern for vitamin D toxicity, treatment should be considered irrespective of the serum level. Care must be taken in interpreting Vitamin D results from different laboratories and methodologies. Published data demonstrated that results from patients undergoing hemodialysis may show a negative bias when tested with various automated 25-OH vitamin D assays when compared to LC-MS/MS. When testing samples from patients whose predominant form of Vitamin D is Vitamin D2, such as patients receiving Vitamin D2 supplementation, results that are subtherapeutic should be confirmed with another method such as LC-MS/MS. Free T4 0.83 0.71-1.85 ng/dL TSH 3rd Gen. 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 Repeat another thyroid in March 2025 (2) Elevated coronary artery calcium score: Code(s): R93.1 - Abnormal findings on diagnostic imaging of heart and coronary circulation Category: Medical Plan: Patient already eating healthy diet, no processed foods, cooks her own food, avoiding a lot of meat products, mostly vegetables and fish, she is an active person, hikes, walks and engages in a lot of sports. Advised to try taking red yeast rice supplements to see if this will help lower her LDL cholesterol levels. Will recheck another lipid panel in March 2025 Orders: Orders Lipid Panel 03/13/25 E03.8 - Other specified hypothyroidism, E06.3 - Autoimmune thyroiditis, R93.1 - Abnormal findings on diagnostic imaging of heart and coronary circulation Thyroid Stimulating Hormone 03/13/25 E03.8 - Other specified hypothyroidism, E06.3 - Autoimmune thyroiditis, R93.1 - Abnormal findings on diagnostic imaging of heart and coronary circulation Free T4 (Free Thyroxine) 03/13/25 E03.8 - Other specified hypothyroidism, E06.3 - Autoimmune thyroiditis, R93.1 - Abnormal findings on diagnostic imaging of heart and coronary circulation Thyroid Peroxidase Antibodies 03/13/25 E03.8 - Other specified hypothyroidism, E06.3 - Autoimmune thyroiditis, R93.1 - Abnormal findings on diagnostic imaging of heart and coronary circulation
--- OUTSIDE RECORDS SUMMARY | 2024-12-11 10:33 | XMS_ITS | Clinical Summary ---
Author Organization [facility] Address [address] [place] [id number] Phone Care Team Providers Care Immersion Metalcleaner Name Role Phone Tiesha Dasilva MD Primary Care Provider Allergies Active Allergy Reactions Criticality Noted Date Comments Phenergan Plain Hives,Itching,Other (See Comments),Shortness Of Breath High 04/02/2023 Medications thyroid, pork, (CAFETERIA OR LUNCHROOM CHECKER THYROID) 30 mg Tab 10/31/2021 Active Social History Tobacco Use Types Packs/Day Years Used Date Smoking Tobacco: Never Assessed Education Answer Date Recorded Are you interested in more education? Not on duong e 03/28/2023 Are you concerned about learning? Not on file 03/28/2023 No 03/28/2023 No 03/28/2023 Digital Access Answer Date Recorded No 03/28/2023 No 03/28/2023 Reliable internet access at home? Not on file 03/28/2023 Device with a working camera? Not on file Comments Unknown Sex and Gender Information Value Date Recorded Sex Assigned at Female 02/19/2023 4:21 PM EDT Legal Sex Female 4:13 PM EDT Gender Identity Female 02/19/2023 4:21 PM EDT Sexual Orientation Straight 02/19/2023 4: 21 PM EDT Last Filed Vital Signs Vital Sign Reading Time Taken Comments Blood Pressure - - Pulse - - Temperature - - Respiratory Rate - - Oxygen Saturation - - Inhaled Oxygen Concentration - - Weight 53.5 kg (118 lb) 04/02/2023 1:55 PM EST Height 158.8 cm (5' 2.5 ) 04/02/2023 1:55 PM EST Body Mass Index 21.24 04/02/2023 1:55 PM EST Plan of Treatment Health Maintenance Due Date Last Done Comments Adult Td,Tdap Booster 1965 LIPID PANEL 1965 DEPRESSION SCREENING 1978 SMOKING Hx and SMOKELESS TOB ACCO SCREENING 11/13/1979 HEPATITIS C SCREENING 1984 HIV ONE-TIME SCREENING (18-6 5 YEARS) 1984 PAP SMEAR 11/13/1987 MAMMOGRAM 2006 COLOGUARD 11/13/2011 COLONOSCOPY 11/13/2011 COLORECTAL CANCER SCREENING 11/13/2011 FIT TEST 11/13/2011 FOBT 11/13/2011 SIGMOIDOSCOPY 11/13/2011 VIRTUAL COLONOSCOPY 11/13/2011 PNEUMOCOCCAL VACCINES (50+ y ears) (1 of 1 - PCV) 2016 ZOSTER VACCINES (1 of 2) 2016 COVID-19 VACCINE (1 - 2023-2 5 season) 2024 HEPATITIS A VACCINES Aged Out No long er eligible based on patient's age to complete this topic HIB VACCINES Aged Out No longer eligi ble based on patient's age to complete this topic MENINGOCOCCAL VACCINES (ACWY) Aged Out No longer eligible based on patient's age to complete this topic MENINGOCOCCAL VACCINES (B) Aged Out N o longer eligible based on patient's age to complete this topic Medical Devices Not on file Insurance [facility] FEDERAL [facility] Care Teams Immersion Metalcleaner Relationship Specialty Start Date End Date Tiesha Dasilva MD [address] [place] [address] PCP - General Internal Medicine 02/19/23 Additional Source Comments The information contained in this document represents components of the legal health record. It is not the complete legal health record.[facility]
== END 2024-12-11 11:21 | disposition home or self-care (01) ==
LOC: HO.HMCC 10:23
PROVIDERS: PCP Internal Medicine; Visit Provider Internal Medicine
DX: E03.8 Other specified hypothyroidism (principal); E06.3 Autoimmune thyroiditis; R93.1 Abnormal findings on diagnostic imaging of heart and coronary circulation

== ENCOUNTER 2025-03-11 09:06 | Outpatient (REF) | payer BC, SELFPAY ==
--- OUTSIDE RECORDS SUMMARY | 2023-12-11 09:00 | XMS_ITS ---
[facility] Organization [facility] Address [address] [place] [address] Care Team Providers Care Oyster Preparer Name Role Phone Brown MCKEON, Tiesha Francis Primary Care Provider Un available Crystal Dobson Unavailable [phone] Encounters Encounter Location Date Provider Diagnosis Surgery [facility] ([facility]) [address] [place] [id number] 12/11/2023 Crystal Black Plan Of Treatment No Information Progress Notes * Aj PRUITTOB:1965 ( 59 yo F)Acc No.[id number]:12/11/2023 Patient: Fabian BRANTLEY Gini Provider: Nicolas Dobson DPM :1965 A ge:58 Y S ex:Female Date:12/11/2023 Address:[address] [id number] Pcp:Michael Prajapati * Images: * The named appointment provid er may or may not be the originator of this progress note, and it is not deemed complete until electronically signed by the appointment provider. Sign off status: Pending * Provider: Nicolas Dobson DPM Date: 0 12/11/2023 Generated for Shirai ng/Faxing/eTransmitting on: 1 10:15 AM EDT
--- OUTSIDE RECORDS SUMMARY | 2023-12-19 06:15 | XMS_ITS ---
Author Organization [facility] Address [address] [place] [address] Care Team Providers Care Cook Ice Cream Name Role Phone Brown MCKEON, Tiesha Francis Primary Care Provider Un available Black, Crystal Unavailable [phone] Young Encounters Encounter Location Date Provider Diagnosis [facility] [address] [place] [address] 12/19/2023 Crystal Black Plan Of Treatment No Information Progress Notes * Aj PRUITTOB:1965 ( 59 yo F)Acc No.[id number]:12/19/2023 Progress Notes Patient: Gini DUDLEY Provider: Nicolas Dobson DPM :1965 A ge:58 Y S ex:Female Date:12/19/2023 Address:[address] [id number] Pcp:Michael Prajapati Subjective: * Chief Complaints: * [...] 0 12/19/2023 Generated for Printi ng/Faxing/eTransmitting on: 10:15 AM EDT
--- OUTSIDE RECORDS SUMMARY | 2024-06-22 09:30 | XMS_ITS ---
Author Organization [facility] Address [address] [place] [address] Care Team Providers Care Headstart Teacher Name Role Phone Brown MCKEON, Tiesha Francis Primary Care Provider Un available Crystal Dobson [phone] Encounters Encounter Location Date Provider Diagnosis [facility] [address] [place] [address] 06/22/2024 Crystal Black Plan Of Treatment No Information Progress Notes * EDMONDAj DamonOB:1965 ( 59 yo F)Acc No.[id number]:06/22/2024 Progress Note Patient: Gini DUDLEY Provider: Nicolas Dobson DPM :1965 A ge:58 Y S ex:Female Date:06/22/2024 Address:[address] [id number] Pcp:Michael Prajapati Subjective: * Chief Complaints: * [...] 0 06/22/2024 Generated for Printi ng/Faxing/eTransmitting on: 10:15 AM EDT
--- OUTSIDE RECORDS SUMMARY | 2025-03-11 10:15 | XMS_ITS | Clinical Summary ---
Author Organization [facility] Address [address] [place] [id number] Phone Care Team Providers Care Financial Foundations Representative Name Role Phone Tiesha Dasilva MD Primary Care Provider Allergies Active Allergy Reactions Criticality Noted Date Comments Phenergan Plain Hives,Itching,Other (See Comments),Shortness Of Breath High 04/02/2023 Medications thyroid, pork, (OFFICE MACHINE TECHNICIAN THYROID) 30 mg Tab 10/31/2021 Active Social [...] 2016 ZOSTER VACCINES (1 of 2) 2016 INFLUENZA VACCINE (#1) 2024 COVID-19 VACCINE (1 - 2024-2 6 season) 2025 RSV VACCINE (1 - 1-dose 75+ series) 2041 HEPATITIS A VACCINES Aged Out No long [...] topic Medical Devices Not on file Insurance [facility] FEDERAL [facility] [place] [employer] [facility] [place] [employer] [facility] Care Teams Financial Foundations Representative Relationship Specialty Start Date End Date Tiesha Dasilva MD [address] [place] [address] PCP - General Internal Medicine 02/19/23 Additional Source Comments The information contained in this document represents components of the legal health record. It is not the complete legal health record.[facility]
--- OUTSIDE RECORDS SUMMARY | 2025-03-11 10:15 | XMS_ITS | Patient Health Record ---
[facility] Address [address] [place] [address] Care Team Providers Care Drum Sander Offbearer Name Role Phone Brown MCKEON, Tiesha Francis Primary Care Provider Un available Black, Crystal Unavailable [phone] Allergies Allergen (clinical drug ingredient) Drug/Non Drug [...] Date End Date Status Vitamin C Active [place] Thyroid Not-T aking Thyroid Active hydrOXYzine HCl 10 MG as directed Orally Once a day Not-Taking Cortisol Not-Taking Ibuprofen 800 MG 1 tablet every Orall y every 8 hrs; Duration: 14 days 11/25/2023 Not-Taking Gabapentin 300 MG 1 capsule Orally at bedtime; Duration: 15 days 11/25/2023 Not-Taking Cephalexin 500 MG 1 capsule Orally twi ce a day; Duration: 10 days 12/25/2023 Not-Taking Acetaminophen Extra Strength 500 MG 2 tablet as needed Orally every 6 hrs; Duration: 30 days 11/25/2023 Not-Taking Vitamin D Active Physical Therapy . . . 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) Active confirmed Problem Plantar nerve lesion (657573285) Lesion of plantar nerve, left lower limb (G57.62) Active confirmed Problem Arthritis (1177290) Arthritis (M19.90) Active confirmed Problem Acquired hammer toe of left foot (1031357395507 103) Hammer toe of left foot (M20.42) Active confirmed Problem Acquired hallux rigidus (1217419) Hallux rigidus of left foot (M20.22) Active confirmed Vital Signs Blood pressure diastolic 80 mm Hg 07/09/2024 Height 5ft3in in 07/09/2024 Blood pressure systolic 120 mm Hg 07/09/2024 Weight 115 lbs 07/09/2024 BMI 20.37 kg/m2 07/09/2024 Encounters Encounter Location Date Provider Diagnosis [facility] [address] 07/09/2024 Crystal Black Arthritis M19.90 ; Hammer toe of left foot M20.42 ; Hallux limitus of left foot M20.5X2 ; Localized edema R60.0 ; Orthopedic hardware present Z97.8 and Pain of toe of left foot M79.[address] [facility] [address] 03/31/2024 Crystal Black Assessments Encounter Date Diagnosis [...] foot (ICD-10 - M79.675) Plan Of Treatment No Information Insurance Providers Payer Name Payer Address Payer Phone Subscriber Number Group Number Insured Name Patient Relationship to Insured Coverage Start Date Coverage End Date [facility] [id number] [place] [address] [id number] Yariel Hillman Spouse - patient is the spouse of the insured 1 Medical (General) History Medical History History ICD Code Chicken pox Thyroid disorder Surgical History Surgery Date(Month/Year) fused disc in neck hernia growing and imbilical right foot surgery 04/22/17 Implant 1st MTPJ Left 12/11/2023
--- OUTSIDE RECORDS SUMMARY | 2025-03-11 10:16 | XMS_ITS | Data Portability ---
Author Organization [facility]RINA [facility]ie [facility], [address] Address [address] [place] [address] Assessment No assessment recorded. Plan of Treatment Reminders Order Date Submit Date Provider Last Modified By Organization Details Last Modified Time Details Appointments None recorded. Lab rapid strep group A, throat 2023 [email or web address] [facility], [address] [place] [address], [id number], 17:52:45 Referral None recorded. Procedures None recorded. Surgeries None recorded. Imaging None recorded. Medication Orders fluticasone propionate 50 mcg/actuati on nasal spray,suspe nsion 2023 [id number], [address] [place], [place], [phone], 17:52:51 bacitracin 500 unit/gram topical ointment [email or web address] [place] [address] [id number], [address] [place], [place], [phone], 17:37:41 Patient TargetsNo targets recorded. Patient Instructions Encounter Date Encounter Id Patient Instructions Last Modified By Organization Details Last Modified Time 03/14/2024 [id number] sore throat: car e instructions [email or web address] Not available 03/14/2024 17:52:45 Reason for Referral None Reported. Results Created Date Observation Date Name Description Value Unit Range Abnormal Flag Note LastModifiedBy Organization Detail LastModifiedTime 11/07/02 2303/14/2024 rapid strep group A, throa t Unknown Analyte negati ve Not Available [facility] [address] [place] [address], [place], [address], 03/14/2024 17:44:54 Result Notes None recorded. Problems Name Problem SNOMED Code Status Onset Date Resolution Date Notes Provider Name and Address Organization Details Recorded Time Hypothyroidism 24686737 Active Rosie Lucymarie beyer PA - [facility] 4 18:21:00 Problem Notes None recorded. Medical Equipment None Reported. Allergies Allergen ID Allergen Name Allergen Category Reaction Reaction Severity Criticality Documentation Date Start Date Code Code System Note Provider Name and Address Organization Details Recorded Time [id number] Phenergan medicatio n Not available Not available Not available 03/14/2024 47820 8 RxNorm Roslyn Betsy beyer PA Anne-Marie [facility] 4 17:42:25 Medications Name Sig Start Date Stop [...] propionate 50 mcg/actuati on nasal spray,suspe nsion Percival 2 sprays every day by intranasa l route for 30 days. 2023 active Not Available Not Available Not Avai lable AUDIO VISUAL DESIGN ENGINEER Thyroid 30 mg tablet TAKE 1 TABLET BY MOUTH EVERY DAY active Not Available Not Available No t Available AUDIO VISUAL DESIGN ENGINEER Thyroid 15 mg tablet TAKE 1 TABLET BY MOUTH WITH AUDIO VISUAL DESIGN ENGINEER THYROID 30MG FOR TOTAL OF 45MG. TAKE BY MOUTH EVERY DAY. active Not Available Not Available No t Available Vitals Date Recorded Body height Body mass index (BMI) Body weight Body temperature Oxygen saturation Oxygen saturation in Arterial blood by Pulse oximetry Heart rate Respiratory rate Pain severity - 0-10 verbal numeric rating [Score] - Reported Systolic And Diastolic Provider Name and Address Organization Details Last Updated DateTime 4 157.48 cm 21 kg/m2 32465.1 2 g 97.7 [degF] 100 % 100 % 50 /min 18 /min 0 131/82 mm[Hg] Rosie Ayala PA - [facility] 4 18:18:29 Date Recorded Body height Body mass index (BMI) Body weight Body temperature Respiratory rate Oxygen saturation Oxygen saturation in Arterial blood by Pulse oximetry Pain severity - 0-10 verbal numeric rating [Score] - Reported Heart rate Systolic And Diastolic Provider Name and Address Organization Details Last Updated DateTime 4 157.48 cm 21 kg/m2 81333.1 2 g 97.5 [degF] 14 /min 98 % 98 % 5 50 /min 122/72 mm[Hg] Roslyn [place] PA - [facility] 4 17:44:07 Social History Question Answer Notes LastModified by Beep Details LastModified Time Tobacco Smoking Status Former Smoker Rosie beyer PA - [facility] 11/20/2023 18:21:47 Have You Had A Flu Shot This [...] Your Relationship Status? Information not available 11/20/2023 Have You Recently Traveled Abroad? Yes Information not available 11/20/2023 Sex: Unknown Functional Status Question Answer Note LastModified by Beep Details LastModified Time How many times per week do you consume alcohol? Less than 1 time per week Information not available 11/20/2023 Do you use any illicit or recreational drugs? No Information not available 11/20/2023 Do you or have you ever used any other forms of tobacco or nicotine? No Information not available 11/20/2023 What is your level of alcohol consumption? Occasional Information not available 11/20/2023 Mental Status None recorded. Family History Relationship [...] preservative free, adsorbed 4 completed CATRINA Espino [facility] [place], [address], PA - [facility] 11/20/2023 18:30:44 Past Encounters Encounter ID Performer Location Encounter Start Date Encounter Closed Date Diagnosis/Indication Diagnosis SNOMED-CT Code Diagnosis ICD10 Code Diagnosis IMO Codes Diagnosis Note [id number] [address] [facility] [address] [place] [address] 11/04/2017 14:58:42 11/04/2017 16:37:[id number] [place] [address] 01/29/2020 10:41:40 01/29/2020 11:51:10 [id number] [address] [place] [address] 06/01/2017 10:46:47 06/01/2017 11:23:22 [id number] CATRINA MONIQUE [address] [address] 11/20/2023 18:07:43 11/20/2023 18:36:55 Dog scratch [id number] W54.8XXA Based on your presentati on and [...] that are tender Thank you for using [facility] today, please don't hesitate to call or reach out to us if you have any questions or concerns. [id number] CATRINA Espino [facility] [address] [facility] [place] [address] 03/14/2024 17:28:51 03/14/2024 17:53:56 Acute pharyngitis [id number] J02.9 Based on your Presentati on, Exam, [...] . Severe Headache Thank you for using [facility] today, please feel free to contact our office if you have any questions or concerns. Health Concerns Section Related Observation LastModified by Organization Detai ls LastModified Time None Recorded Concern Status LastModified by Organization Details LastModified Time None Recorded Advance Directives Directive None Recorded Payers Insurance Date Sequence Insurance Name Policy Number Policy Cardenas Covered Member ID Cardenas Member ID Guarantor Name 03/14/2024 1 [facility] [employer] Yariel Hillman [id number] Gini Rao Notes Date Note Type Note Provider Name and Address Organization Details Recorded Time 11/20/2023 text/html 58 y/o female here after being scratched on her R arm by a strange dog CATRINA Espino [address] [place], [address], [place] - [employer] 11/20/2023 18:33:25 03/14/2024 text/html 58 y/o female here with 5 days of sore throat, some congestion, mild cough, no fevers, chills, body aches. CATRINA Espino [address] [place], [address], [place] - [facility] 03/14/2024 17:55:54 OBGyn Episode No OBEpisode recorded.
[2025-03-11 11:52] LABS: Cholesterol 210 mg/dL (<200); HDL Cholesterol 69 mg/dL (>40); Triglycerides 79 mg/dL (<150)
[2025-03-11 12:13] LABS: Free T4 (Free Thyroxine) 0.81 ng/dL (0.71-1.85); Thyroid Stimulating Hormone 1.29 uIU/mL (0.32-4.0)
== END 2025-03-11 09:07 | disposition home or self-care (01) ==
LOC: HO.HMGCLDS 09:06
PROVIDERS: PCP Internal Medicine; Visit Provider Internal Medicine
DX: R93.1 Abnormal findings on diagnostic imaging of heart and coronary circulation (principal); E03.8 Other specified hypothyroidism; E06.3 Autoimmune thyroiditis; Z01.84 Encounter for antibody response examination
CPT/HCPCS: 36415; 80061; 84439; 84443; 86376

== ENCOUNTER 2025-03-25 11:06 | Outpatient (AMB) | payer BC, SELFPAY ==
--- OUTSIDE RECORDS SUMMARY | 2023-12-19 05:15 | XMS_ITS ---
Author Organization [facility] Address [address] [place] [address] Care Team Providers Care Cell Maker Name Role Phone Brown MCKEON, Tiesha Francis Primary Care Provider Un available Black, Crystal Unavailable [phone] Young Encounters Encounter Location Date Provider Diagnosis [facility] [address] [place] [address] 12/19/2023 Crystal Black Plan Of Treatment No Information Progress Notes * Aj PRUITTOB:1965 ( 59 yo F)Acc No.[id number]:12/19/2023 Progress Notes Patient: Gini DUDLEY Provider: Nicolas Dobson DPM :1965 A ge:58 Y S ex:Female Date:12/19/2023 Address:[address], [id number] Pcp:Michael Prajapati Subjective: * Chief Complaints: * [address] Young[address] * Medical History: Objective: * Vitals: Assessment: Plan: * Treatment: * Images: * The named appointment provid er may or may not be the originator of this progress note, and it is not deemed complete until electronically signed by the appointment provider. Sign off status: Pending * Provider: Nicolas Dobson DPM Date: 0 12/19/2023 Generated for Printi ng/Faxing/eTransmitting on: 05/25/2024 01:59 PM EST
--- OUTSIDE RECORDS SUMMARY | 2024-06-22 08:30 | XMS_ITS ---
Author Organization [facility] Address [address] [place] [address] Care Team Providers Care Evaluator Transfer Students Name Role Phone Brown MCKEON, Tiesha Francis Primary Care Provider Un available Crystal Dobson [phone] Encounters Encounter Location Date Provider Diagnosis [facility] [address] [place] [address] 06/22/2024 Crystal Black Plan Of Treatment No Information Progress Notes * EDMONDRafiGiovanniOB:1965 ( 59 yo F)Acc No.[id number]:06/22/2024 Progress Note Patient: Gini DUDLEY Provider: Nicolas Dobson DPM :1965 A ge:58 Y S ex:Female Date:06/22/2024 Address:[address] [id number] Pcp:Michael Prajapati Subjective: * Chief Complaints: * * Medical History: Objective: * Vitals: Assessment: Plan: * Treatment: * Images: * The named appointment provid er may or may not be the originator of this progress note, and it is not deemed complete until electronically signed by the appointment provider. Sign off status: Pending * Provider: Nicolas Dobson DPM Date: 0 06/22/2024 Generated for Printi ng/Faxing/eTransmitting on: 05/25/2024 02:00 PM EST
[2025-03-25 11:21] VITALS: BP 117/71; PULSE 46; BMI 21.4
--- NOTE | 2025-03-25 11:21 | A.OFFVIS_ITS ---
Vital Signs 3 03/25/25 11:21 Height 5 ft 2 in Weight 117 lb 4.575 oz BMI 21.4 BP 117/71 Blood Pressure Location Rt brachial Position Sitting Pulse 46 L Intake Visit Reasons: [place] Screening Intake Note: Patient in office today for colonoscopy screening. CC: Patient reports some constipation and states that she has been diagnosed with IBS. Denies other GI symptoms today. Director Of Officiating Required: No Accompanied by: Self / Same As Patient Allergies promethazine (From PHENERGAN) Allergy (Intermediate, Verified 03/25/25 11:22) uncontrolled muscle twitches, hives HPI HPI [place] Screening: Details: 59-year-old female here for preprocedural meeting to discuss a screening colonoscopy. She is referred by Tiesha Dasilva. PMX Hypothyroid s/p graves disease Cervical degenerative disc disease Vocal cord nodule Nephrolithiasis History of sinus bradycardia Positive ELISSA * SURGICAL HISTORY Umbilical hernia repair Thyroidectomy Tonsillectomy Inguinal hernia repair rt Colonoscopy - neg study 12 y/ago EGD same time 2016 rt foot scraped oa big toe 2023 left great toe joint repealcement Cervical fustion C4-5 * ALLERGIES Phenergan * DoublePositive LABS: Laboratory Tests 09/14/24 03/11/25 09:50 09:30 WBC 4.6 L Hgb 13.3 Hct 40.3 Plt Count 200 Estimated GFR > 60 AST 27 ALT 16 Free T4 0.81 TODAY'S VISIT Prior scope: 12 years ago at [facility] Bowel or upper GI problems: she has IBS-C she controls with diet, no upper Cardiac or resp problems. No Anesthesa or sedation problems: PONV with general anesthesia, no other problems. ID probs: No FHX: mother colon polyps. 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 Paternal Grandfather No problems noted. Paternal Grandmother No problems noted. Sister No problems noted. Sister No problems noted. Son No problems noted. Son No problems noted. Social History Household Members: Spouse Housing: House Alcohol intake: current Patient Tobacco Use Status: Former Tobacco user Tobacco use type: Cigarette Years Smoked: 20 yrs e-Cigarette/Vaping Use: Never Used Current occupational status: employed Cognitive needs: No Hearing needs: No Vision needs: Yes Review of Systems Const Denies fatigue, Denies fever(s), Denies night sweats, Denies poor appetite and Denies weight loss ENT Reports Normal hearing present, Denies dysphagia, Denies odynophagia, Denies throat swelling and Denies tongue swelling Card Reports no additional complaints Resp Reports no additional complaints GI Details: Denies abdominal pain, Denies melena, Denies bloating, Denies hematochezia, Denies constipation, Denies GI cramping, Denies dysphagia, Denies excessive flatus, Denies early satiety, Denies heartburn, Denies diarrhea, Denies nausea, Denies odynophagia, Denies vomiting and Denies hematemesis Skin/Breast Denies pruritus, Denies lesions, Denies rash and Denies jaundice Neuro Reports Normal hearing present and Denies Abnormal speech present Endo Denies fatigue Aller/Immun Denies throat swelling and Denies tongue swelling Physical Exam Vital Signs: Last Vital Signs Pulse 46 L 03/25/25 11:21 BP 117/71 03/25/25 11:21 BMI result Body Mass Index 21.4 Const General: cooperative, no acute distress, well developed and well groomed Nutritional Appearance: average body habitus and well nourished Orientation/consciousness: oriented to person, oriented to place and oriented to time Limitations: No language barrier HEENT Head: Yes normocephalic and Yes atraumatic Eyes General: appearance normal, both eyes and all related structures Pupils: Equal, round and reactive pupils present Neck Neck: Yes normal visual inspection and Yes no lymphadenopathy Thyroid: Thyroid normal Resp Effort & Inspection: normal respiratory effort and able to speak in complete sentences Auscultation: clear to auscultation bilaterally Cardio Rate: regular rate Rhythm: regular rhythm Heart sounds: Normal, physiologic split S2 sound present Peripheral pulses: radial pulses present and posterior tibial pulses present GI Inspection: No distended and No Abdominal panniculus present Palpation (GI): Soft to palpation, nontender, no guarding, not rigid and No hepatosplenomegaly present Percussion: Yes normal to percussion Auscultation: normal bowel sounds Rectal Exam - Female: deferred Abdomen image: 2 1. surgical scar Skin General skin exam: no rashes or lesions noted, turgor normal, skin not dry, no jaundice, No spider nevi and no striae Rashes: no rashes Nails: normal Neuro General: oriented to person, oriented to place and oriented to time Cranial nerves: Yes Equal, round and reactive pupils present and Yes Normal hearing present Speech: No Abnormal speech present Extrem General: Yes normal to inspection, No clubbing, No cyanosis and No edema Psych Appearance: grossly normal and well kempt Mental Status: mental status grossly normal Speech and movement: Normal speech and movement present Affect: normal affect Attitude: cooperative Thought process: Normal thought process present and not confabulating Thought content: Normal thought content present Insight: Good insight present (Psych) Judgement: Good judgement present (Psych) Assessment & Plan Assessment & Plan (1) PONV (postoperative nausea and vomiting): Code(s): R11.2 - Nausea with vomiting, unspecified; Z98.890 - Other specified postprocedural states Category: Medical (2) Family history of polyps in the colon: Comment: mother Code(s): Z83.71 - Family history of colonic polyps Category: Medical Plan Prior scope: 12 years ago at [facility] Bowel or upper GI problems: she has IBS-C she controls with diet, no upper Cardiac or resp problems. No Anesthesa or sedation problems: PONV with general anesthesia, no other problems. ID probs: No FHX: mother colon polyps. Orders: Referrals 2 GI Procedure Notification R11.2 - Nausea with vomiting, unspecified, Z83.71 - Family history of colonic polyps, Z98.890 - Other specified postprocedural states Medications: New 2 peg 3350-electrolytes 236-22.74-6.74 -5.86 gram (Golytely) until fecal effluent is clear; do not exceed a total volume of 2,000 mL 240 mL PO Q10M 4,000 mL 0RF 1 day Z12.11 - Encounter for screening for malignant neoplasm of colon bisacodyl (Dulcolax (bisacodyl)) 10 mg (2 x 5 mg) PO BEDTIME 4 tabs 0RF 2 days Coding Level of Care Code New Pt Level 3 (88826) Diagnoses PONV (postoperative nausea and vomiting) R11.2; Z98.890 Family history of polyps in the colon Z83.71
--- OUTSIDE RECORDS SUMMARY | 2025-03-25 14:00 | XMS_ITS | Clinical Summary ---
Author Organization [facility] Address [address] [place] [address] Phone Care Team Providers Care Veterinary Medical Officer Name Role Phone Tiesha Dasilva MD Primary Care Provider Allergies Active Allergy Reactions Criticality Noted Date Comments Phenergan Plain Hives,Itching,Other (See Comments),Shortness Of Breath High 04/02/2023 Medications thyroid, pork, (TECHNICAL EDUCATION TEACHER THYROID) 30 mg Tab 10/31/2021 Active Social [...] on patient's age to complete this topic IPV VACCINES Aged Out No longer eligi ble based on patient's age to complete this topic MENINGOCOCCAL VACCINES (ACWY) Aged Out No longer eligible based on patient's age to complete this topic MENINGOCOCCAL VACCINES (B) Aged Out N o longer eligible based on patient's age to complete this topic Medical Devices Not on file Insurance [facility] FEDERAL [facility] Care Teams Veterinary Medical Officer Relationship Specialty Start Date End Date Tiesha Dasilva MD [address] [facility] [place] [address] PCP - General Internal Medicine 02/19/23 Additional Source Comments The information contained in this document represents components of the legal health record. It is not the complete legal health record.[facility]
--- OUTSIDE RECORDS SUMMARY | 2025-03-25 14:00 | XMS_ITS | Patient Health Record ---
Author Organization [facility] Address [address] [place] [address] Care Team Providers Care Environmental Inspector Name Role Phone Brown MCKEON, Tiesha Francis Primary Care Provider Un available Black, Crystal Unavailable [phone] Allergies Allergen (clinical drug ingredient) Drug/Non Drug [...] Duration) Notes Start Date End Date Status Cephalexin 500 MG 1 capsule Orally twi ce a day; Duration: 10 days 12/25/2023 Not-Taking Physical Therapy . . . 2-3x/week; Duration: 3-4 weeks 01/02/2024 Not-Taking Vitamin D Active Vitamin C Active Custom Orthotics as directed 03/19/2025 Active Thyroid Active [place] Thyroid Not-T aking Cortisol Not-Taking hydrOXYzine HCl 10 MG as directed Orally Once a day Not-Taking Gabapentin 300 MG 1 capsule Orally at bedtime; Duration: 15 days 11/25/2023 Not-Taking Ibuprofen 800 MG 1 tablet every Orall y every 8 hrs; Duration: 14 days 11/25/2023 Not-Taking Acetaminophen Extra Strength 500 MG 2 tablet as needed Orally every 6 hrs; Duration: 30 days 11/25/2023 Not-Taking Social History Tobacco Use: Social History Observation Description Date Details (start date - stop date) Never Smoker NA - NA Tobacco use other than smoking: Question Answer Notes Are you an other tobacco user? No Tobacco Control (Standard) Question Answer Notes Tobacco use: Nonsmoker Additional Findings: Tobacco non-user Current no nsmoker AUDIT-C (Standard) Question Answer Notes Did you have a drink contain ing alcohol in the past year? Yes How often did you have a dri nk containing alcohol in the past year? Monthly or less (1 point) How many drinks did you have on a typical day when you were drinking in the past year? 1 or 2 drinks (0 point) How often did you have six o r more drinks on one occasion in the past year? 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) Plantar fasciitis, bilateral (M72.2) Active confirmed Vital Signs Blood pressure diastolic 80 mm Hg 03/19/2025 Height 5ft 3in in 03/19/2025 Blood pressure systolic 120 mm Hg 03/19/2025 Weight 115 lbs 03/19/2025 BMI 20.37 kg/m2 03/19/2025 Encounters Encounter Location Date Provider Diagnosis [address] [address] 07/09/2024 Crystal Black Arthritis M19.90 ; Hammer toe of left foot M20.42 ; Hallux limitus of left foot M20.5X2 ; Localized edema R60.0 ; Orthopedic hardware present Z97.8 and Pain of toe of left foot M79.675 [facility] [address] 03/19/2025 Crystal Black Hallux limitus of left foot M20.5X2 ; Plantar fasciitis, bilateral M72.2 ; Pain of toe of left foot M79.675 ; Pain in right foot M79.671 ; Other myositis of right foot M60.871 ; Bursitis of right foot M77.51 ; Pain in left foot M79.672 ; Other myositis of left foot M60.872 ; Bursitis of left foot M77.52 and Hallux limitus of right foot M20.5X1 [address] [place] [address] 03/31/2024 Crystalyamileth Dobson [facility] [place] [address] [place] [address] 03/17/2025 Crystal Dobson Assessments Encounter Date Diagnosis (ICD Code) Assessment Notes Treatment Notes Treatment Clinical Notes Section Notes 07/09/2024 Arthritis (ICD-10 - M19.90) 07/09/2024 Hammer toe of left foot (ICD-10 - M20.42) 03/19/2025 Hallux limitus of left foot (ICD-10 - M20.5X2) 03/19/2025 Plantar fasciitis, bilateral (ICD-10 - M72.2) Patient Educated with: HEEL CORD STRETCHES.pdf (HEEL CORD STRETCHES.pdf) Patient Educated with: RICE THERAPY.pdf (RICE THERAPY.pdf) 03/19/2025 Pain of toe of left foot (ICD-10 - M79.675) 07/09/2024 Hallux limitus of left foot (ICD-10 - M20.5X2) 07/09/2024 Localized edema (ICD-10 - R60.0) 03/19/2025 Pain in right foot (ICD-10 - M79.671) 07/09/2024 Orthopedic hardware present (ICD-10 - Z97.8) 03/19/2025 Other myositis of right foot (ICD-10 - M60.871) 03/19/2025 Bursitis of right foot (ICD-10 - M77.51) 07/09/2024 Pain of toe of left foot (ICD-10 - M79.675) 03/19/2025 Pain in left foot (ICD-10 - M79.672) 03/19/2025 Other myositis of left foot (ICD-10 - M60.872) 03/19/2025 Bursitis of left foot (ICD-10 - M77.52) 03/19/2025 Hallux limitus of right foot (ICD-10 - M20.5X1) Plan Of Treatment No Information Insurance Providers Payer Name Payer Address Payer Phone Subscriber Number Group Number Insured Name Patient Relationship to Insured Coverage Start Date Coverage End Date [facility] [address] [place] [address] [id number] Yariel Hillman Spouse - patient is the spouse of the insured 1 Medical (General) History Medical History History ICD Code Chicken pox Thyroid disorder Surgical History Surgery Date(Month/Year) fused disc in neck hernia growing and imbilical right foot surgery 04/22/17 Implant 1st MTPJ Left 12/11/2023
--- OUTSIDE RECORDS SUMMARY | 2025-03-25 14:00 | XMS_ITS | Data Portability ---
Author Organization [facility]ie [facility], [address] Address [address] [place] [address] Assessment No assessment recorded. Plan of Treatment Reminders Order Date Submit Date Provider Last Modified By Organization Details Last Modified Time Details Appointments None recorded. Lab rapid strep group A, throat 2023 [email or web address] [address], [address] [place] [address], [phone], 17:52:45 Referral None recorded. Procedures None recorded. Surgeries None recorded. Imaging None recorded. Medication Orders fluticasone propionate 50 mcg/actuati on nasal spray,suspe nsion 2023 [id number], [address] [place], [place], [phone], 17:52:51 bacitracin 500 unit/gram topical ointment [email or web address] [place] [address] [id number], [address] [place], [place], [phone], 17:37:41 Patient TargetsNo targets recorded. Patient Instructions Encounter Date Encounter Id Patient Instructions Last Modified By Organization Details Last Modified Time 03/14/2024 [id number] sore throat: car e instructions [email or web address] Not available 03/14/2024 17:52:45 Reason for Referral None Reported. Results Created Date Observation Date Name Description Value Unit Range Abnormal Flag Note LastModifiedBy Organization Detail LastModifiedTime 11/07/02 2303/14/2024 rapid strep group A, throa t Unknown Analyte negati ve Not Available [facility] [address] [place] [address], [place], [address], 03/14/2024 17:44:54 Result Notes None recorded. Problems Name Problem SNOMED Code Status Onset Date Resolution Date Notes Provider Name and Address Organization Details Recorded Time Hypothyroidism 77489935 Active Rosie Lucymarie beyer PA - [facility] 4 18:21:00 Problem Notes None recorded. Medical Equipment None Reported. Allergies Allergen ID Allergen Name Allergen Category Reaction Reaction Severity Criticality Documentation Date Start Date Code Code System Note Provider Name and Address Organization Details Recorded Time 9765872 Phenergan medicatio n Not available Not available Not available 03/14/2024 66201 8 RxNorm Roslyn Betsy beyer PA Anne-Marie [...] propionate 50 mcg/actuati on nasal spray,suspe nsion [place] 2 sprays every day by intranasa l route for 30 days. 2023 active Not Available Not Available Not Avai lable [facility] Thyroid 30 mg tablet TAKE 1 TABLET BY MOUTH EVERY DAY active Not Available Not Available No t Available [facility] Thyroid 15 mg tablet TAKE 1 TABLET BY MOUTH WITH [facility] THYROID 30MG FOR TOTAL OF 45MG. TAKE [...] Updated DateTime 4 157.48 cm 21 kg/m2 64558.1 2 g 97.7 [degF] 100 % 100 [...] Updated DateTime 4 157.48 cm 21 kg/m2 61265.1 2 g 97.5 [degF] 14 /min 98 % 98 % 5 50 /min 122/72 mm[Hg] Roslyn [place] PA - [facility] 4 17:44:07 Social History Question Answer Notes LastModified by [email or web address] Details LastModified Time Tobacco Smoking Status Former [...] Functional Status Question Answer Note LastModified by [email or web address] Details LastModified Time How many times per [...] preservative free, adsorbed 4 completed CATRINA Espino [facility] [place], [address], [place] - [facility] 11/20/2023 18:30:44 Past Encounters Encounter ID Performer Location Encounter Start Date Encounter Closed Date Diagnosis/Indication Diagnosis SNOMED-CT Code Diagnosis ICD10 Code Diagnosis IMO Codes Diagnosis Note [id number] [address] [facility] [address] [place] [address] 11/04/2017 14:58:42 11/04/2017 16:37:56 [id number] [facility] [address] [place] [address] 01/29/2020 10:41:40 01/29/2020 11:51:10 [id number] [address] [place] [address] 06/01/2017 10:46:47 06/01/2017 11:23:22 [id number] CATRINA MONIQUE [address] [address] 11/20/2023 18:07:43 11/20/2023 18:36:55 Dog scratch [id number] W54.8XXA Based on your presentati on and [...] that are tender Thank you for using [facility] today, please don't hesitate to call or reach out to us if you have any questions or concerns. [id number] CATRINA Espino [address] [address] [place] [address] 03/14/2024 17:28:51 03/14/2024 17:53:56 Acute pharyngitis [id number] J02.9 Based on your Presentati on, Exam, [...] . Severe Headache Thank you for using [facility] [facility] today, please feel free to contact [...] Cardenas Member ID Guarantor Name 03/14/2024 1 [facility] Yariel Hillman [id number] Gini Rao Notes Date Note Type Note Provider Name and Address Organization Details Recorded Time 11/20/2023 text/html 58 y/o female here after being scratched on her R arm by a strange dog CATRINA Espino [address] [place], [address], [place] - [facility] 11/20/2023 18:33:25 03/14/2024 text/html 58 y/o female here with 5 days of sore throat, some congestion, mild cough, no fevers, chills, body aches. CATRINA Espino [address] [place], [address], [place] - [facility] 03/14/2024 17:55:54 OBGyn Episode No OBEpisode recorded.
== END 2025-03-25 11:53 | disposition home or self-care (01) ==
LOC: HO.HGI 11:08
PROVIDERS: PCP Internal Medicine; Visit Provider Nurse Practitioner
DX: R11.2 Nausea with vomiting, unspecified (principal); Z98.890 Other specified postprocedural states; Z83.719 Family history of colon polyps, unspecified
CPT/HCPCS: 99203